=== PATIENT | female | born 1955 | race Caucasian/White ===

== ENCOUNTER 2024-05-07 17:20 | Emergency (ER) | payer MEDICARE, SELFPAY ==
[2024-05-07] VITALS (8 sets, daily range): BP systolic 128–140; BP diastolic 57–68; PULSE 65–80; RESP 12–24; TEMP 36.6; O2SAT 95–100; BMI 23.8
[2024-05-07] MEDS: PANTOPRAZOLE 40 MG VIAL 80 MG IV (17:41)
[2024-05-07] MEDS: METOCLOPRAMIDE 10 MG/2 ML INJ IV (17:42)
[2024-05-07 18:03] LABS: Add Manual Diff / Slide Review NO; Basophils Absolute Auto 0 /uL (0-100); Basophils Percent Auto 0.3 % (0-2); Eosinophils Absolute Auto 0 /uL (0-450); Hematocrit 28.4 % (36-46); Lymphocytes Absolute Auto 600 /uL (1100-4500); Lymphocytes Percent Auto 6.9 % (25-40); Mean Corpuscular HGB Conc 31.5 % (30-36); Mean Corpuscular Hemoglobin 20.2 PG (26-34); Monocytes Absolute Auto 500 /uL (0-900); Monocytes Percent Auto 5.1 % (3-14); Neutrophils Absolute Auto 7700 /uL (1500-7000); Neutrophils Percent Auto 87.7 % (50-75); Platelet Count 75 X10^3/uL (150-400); Red Blood Cell Count 4.43 X10^6/uL (4.0-5.2); Red Cell Distribution Width 20.1 % (11.6-14.8); White Blood Cell Count 8.8 X10^3/uL (4.5-11.0)
[2024-05-07 18:11] LABS: INR 1.4 (0.9-1.3)
[2024-05-07 18:14] LABS: PTT Partial Thromboplastin Tim 30 SECONDS (25.1-36.5)
--- NOTE | 2024-05-07 18:14 | ED.GIBLEED ---
HPI - GI Bleed General Chief complaint: GI Bleed Stated complaint: N/V/Coffeground emesis Time Seen by Provider: 05/07/24 18:14 Source: patient and EMS Mode of arrival: EMS History of Present Illness HPI Narrative: 69-year-old woman with a history of VILLATORO with known varices most recent upper GI bleed was January of 2024. She underwent endoscopy at [facility] with hospitalization in [place] found to have varices no active bleeding was not transfused at that time. 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 She is on oxycodone 10 mg every 4 hours for pain control secondary to the oncology diagnosis. With her 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 she does have chronically low platelets as well. She states that today she began having increasing nausea midepigastric pain had an episode of vomiting that had red blood and clots and then a couple more episodes that was coffee-ground type emesis. She has not had any black stools or melena. She continues to complain of severe nausea that did not respond initially to Zofran or Reglan and finally did respond to Compazine. Continues to have pain and for the last 12 hours has not been able to keep any of her pain medications down so I suspect there is a mild component of narcotic withdrawal that is contributing to the persistent nausea as well. She has not complaining of overt chest pain and has not had any recent fevers. 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 Upper gastrointestinal hemorrhage Esophageal varices Social History Smoking Status: Never smoker Smoking Status: Never smoker alcohol intake frequency: 0-2 drinks per day Substance Use Type: does not use Exam Initial Vital Signs Initial Vital Signs: Vital Signs Temperature 97.9 F 05/07/24 17:46 Pulse Rate 68 05/07/24 17:46 Respiratory Rate 22 05/07/24 17:46 Blood Pressure 136/68 05/07/24 17:46 Pulse Oximetry 100 05/07/24 17:46 Oxygen Delivery Method Room Air 05/07/24 17:46 General: Chronically ill-appearing woman with acute exacerbation, pale, retching, appears to be in pain HEENT: Moist mucous membranes, normal sclera with reactive pupils, Respiratory: Lungs are clear to auscultation, no wheezing no rales no rhonchi. Full and symmetrical air movement. She does have a port in her left upper chest Cardiac: Regular rate and rhythm no murmurs no bruits Abdomen: Soft, nontender, good bowel tones, no flank pain Skin: Quite pale, she has not diaphoretic Neurologic: Globally weak but otherwise Grossly neurologically intact with no obvious asymmetries or abnormalities Extremities: No trauma, well perfused Psych: Cooperative, appropriate insight and affect Course Orders Ordered: Discontinued Medications Hydromorphone HCl (Hydromorphone 1 Mg Inj) 1 mg IV NOW ONE Stop: 05/07/24 18:47 Last Admin: 05/07/24 19:04 Dose: 1 mg Documented By: LESA Hydromorphone HCl (Hydromorphone 0.5 Mg Inj) 1 mg IV Q15MIN PRN PRN Reason: Pain, Last Admin: 05/08/24 01:51 Dose: 1 mg Documented By: KAYLEY Octreotide Acetate 500 mcg/ (Sodium Chloride) 101 mls @ 10.1 mls/hr IV CONT AMIRAH; Protocol Last Admin: 05/08/24 03:58 Dose: 50 mcg/hr, 10.1 mls/hr Documented By: Infusion: 05/08/24 03:53 Dose: Infused Documented By: Admin: 05/07/24 19:16 Dose: 50 mcg/hr, 10.1 mls/hr Documented By: LESA Ceftriaxone Sodium 2,000 mg/ (Sodium Chloride) 100 mls @ 200 mls/hr IV NOW ONE Stop: 05/07/24 18:49 Last Infusion: 05/07/24 20:06 Dose: Infused Documented By: Admin: 05/07/24 19:10 Dose: 200 mls/hr Documented By: LESA Sodium Chloride (Normal Saline 0.9%) 1,000 mls @ 150 mls/hr IV CONT AMIRAH Last Admin: 05/08/24 01:50 Dose: 150 mls/hr Documented By: Infusion: 05/08/24 01:50 Dose: Infused Documented By: Admin: 05/07/24 19:16 Dose: 150 mls/hr Documented By: LESA Metoclopramide HCl (Metoclopramide 10 Mg/2 Ml Inj) 10 mg IV NOW ONE Stop: 05/07/24 17:38 Last Admin: 05/07/24 17:42 Dose: 10 mg Documented By: EDITH Metoclopramide HCl (Metoclopramide 10 Mg/2 Ml Inj) 10 mg IV NOW ONE Stop: 05/08/24 01:37 Last Admin: 05/08/24 01:50 Dose: 10 mg Documented By: KAYLEY Octreotide Acetate (Octreotide 100 Mcg/Ml Vial) 50 mcg IV NOW ONE Stop: 05/07/24 18:47 Last Admin: 05/07/24 19:07 Dose: 50 mcg Documented By: LESA Pantoprazole Sodium (Pantoprazole 40 Mg Vial) 80 mg IV NOW ONE Stop: 05/07/24 17:38 Last Admin: 05/07/24 17:41 Dose: 80 mg Documented By: EDITH Prochlorperazine (Prochlorperazine 10 Mg/2 Ml Vial) 10 mg IV NOW ONE Stop: 05/07/24 18:54 Last Admin: 05/07/24 19:12 Dose: 10 mg Documented By: LESA Vital Signs Vital signs: Vital Signs - 8 hr 05/08/24 00:00 05/08/24 00:00 05/08/24 00:30 Temperature Pulse Rate 75 73 Respiratory Rate 22 19 Blood Pressure 138/66 Pulse Oximetry 98 98 05/08/24 00:30 05/08/24 01:00 05/08/24 01:01 Temperature Pulse Rate 78 77 Respiratory Rate 21 27 H Blood Pressure 144/66 H Pulse Oximetry 98 98 05/08/24 01:01 05/08/24 01:31 05/08/24 02:00 Temperature Pulse Rate 68 73 Respiratory Rate 11 L Blood Pressure 132/61 Pulse Oximetry 95 98 05/08/24 02:30 05/08/24 02:51 05/08/24 02:51 Temperature 97.9 F Pulse Rate 66 67 Respiratory Rate 17 16 Blood Pressure 125/60 125/60 125/60 Pulse Oximetry 93 95 05/08/24 03:00 Temperature Pulse Rate 67 Respiratory Rate 19 Blood Pressure Pulse Oximetry 93 MDM - GI Bleed Lab Data 05/07/24 18:00 05/07/24 17:49 Labs: Lab Results 05/07/24 05/07/24 Range/Units 17:49 18:00 WBC 8.8 (4.5-11.0) X10^3/uL RBC 4.43 (4.0-5.2) X10^6/uL Hgb 9.0 L 8.7 L (12.0-16.0) g/dL Hct 28.4 L 28.1 L (36-46) % MCV 64.0 L (80-100) fL MCH 20.2 L (26-34) PG MCHC 31.5 (30-36) % RDW 20.1 H (11.6-14.8) % Plt Count 75 L (150-400) X10^3/uL Neut % (Auto) 87.7 H (50-75) % Lymph % (Auto) 6.9 L (25-40) % [place] % (Auto) 5.1 (3-14) % Eos % (Auto) 0.0 L (2-4) % Baso % (Auto) 0.3 (0-2) % Neut # (Auto) 7700 H (6601-1900) /uL Lymph # (Auto) 600 L (7736-5762) /uL [place] # (Auto) 500 (0-900) /uL Eos # (Auto) 0 (0-450) /uL Baso # (Auto) 0 (0-100) /uL RBC Morphology See below Hypochromasia 1+ H Anisocytosis 2+ H Microcytosis 1+ H Ovalocytes 1+ H Schistocytes 1+ H PT 16.0 H (9.4-12.5) SECONDS INR 1.4 H (0.9-1.3) APTT 30 (25.1-36.5) SECONDS Sodium 140 (137-145) mmol/L Potassium 3.9 (3.4-5.1) mmol/L Chloride 117 H (98-107) mmol/L Carbon Dioxide 18 L (22-32) mmol/L BUN 18 H (7-17) mg/dL Creatinine 0.70 (0.52-1.04) mg/dL Estimated GFR > 60 (>60) mL/min BUN/Creatinine Ratio 25.7 H (6-22) Glucose 139 H (80-110) mg/dL Calcium 8.1 L (8.4-10.2) mg/dL Total Bilirubin 1.4 H (0.2-1.3) mg/dL AST 24 (14-36) IU/L ALT 11 (<35) IU/L Alkaline Phosphatase 76 (38-126) U/L Total Protein 7.2 (6.3-8.2) g/dL Albumin 4.1 (3.5-5.0) g/dL Globulin 3.1 (1.7-4.1) g/dL Albumin/Globulin Ratio 1.3 (1.0-2.8) Blood Type A Negative Antibody Screen Negative ECG Data Interpretation: Sinus rhythm at a rate of 76, nonspecific STT wave changes. MDM Narrative Medical decision making narrative: CC: Upper GI bleeding Complicating co-morbidities: VILLATORO with known esophageal varices and low platelets, recent upper GI bleed January of 2024 with hospital admission and endoscopy done at [facility] in [place] Data collected from: patient Medical records reviewed: No medical records are immediately available. Patient does have access to her patient portal for lab comparison Differential considered: Small upper GI bleed, massive variceal upper GI bleed, severe anemia Exam documented above, pertinent findings include: Obviously hurting, nauseated, no additional vomiting since she has been in the emergency department, quite pale and appears generally unwell but not acutely toxic Lab Test results independently reviewed as above. Pertinent findings: From the patient's portal, on February 17 H&H is 10.2 and 34.2. Creatinine is 1.05 and platelets were at 75 CBC today shows initial hemoglobin of 9 and hematocrit of 28.4. This dropped to 8.7 and 28.1 after a L of fluid. Platelets are 75 white count is unremarkable Chemistries show creatinine appropriate at 0.7. CO2 is slightly low at 18 BUN minimally elevated at 18. Total bilirubin is 1.4. INR is 1.4, PTT is 30 Independently reviewed EKG: Sinus rhythm at a rate of 76. Nonspecific STT wave changes Consultations: Because we do not admit variceal bleeding to [facility], phone calls were made for bed availability. No beds available at [facility] in [facility]. [facility] bed available and I was able to speak with Dr. Rendon, admitting hospitalist. Patient will be accepted Treatments: 1 L of fluid, she was given 80 mg of IV Protonix, continues on an octreotide drip, given 2 g of ceftriaxone. Zofran, Reglan, Compazine and Dilaudid for pain control Re-evaluations: 140am after discussion with Dr. Rendon, findings reviewed with patient. She is having increasing nausea and pain we will re-treat with both Reglan and Dilaudid. She has remained hemodynamically stable throughout her ER stay Discussion: 69-year-old woman with variceal bleeding secondary to VILLATORO and an inoperable squamous cell tumor in the right side of her jaw that causes significant pain. Does not appear to be actively bleeding at this time however given the slight drop in H&H again from her discharge in January known varices low platelets hospitalization for observation is warranted at a minimum. We will be transferred to [facility]. 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
[2024-05-07 18:15] LABS: Alanine Aminotransferase 11 IU/L (<35); Albumin 4.1 g/dL (3.5-5.0); Albumin Globulin Ratio 1.3 (1.0-2.8); Alkaline Phosphatase 76 U/L (38-126); Aspartate Aminotransferase 24 IU/L (14-36); BUN Creatinine Ratio 25.7 (6-22); Bilirubin Total 1.4 mg/dL (0.2-1.3); Blood Urea Nitrogen 18 mg/dL (7-17); Calcium 8.1 mg/dL (8.4-10.2); Carbon Dioxide 18 mmol/L (22-32); Chloride 117 mmol/L (98-107); Estimated Glomerular Filt Rate > 60 mL/min (>60); Globulin 3.1 g/dL (1.7-4.1); Glucose 139 mg/dL (80-110); HEMOLYSIS < 15 (0-50); Potassium 3.9 mmol/L (3.4-5.1); Sodium 140 mmol/L (137-145); Total Protein 7.2 g/dL (6.3-8.2)
[2024-05-07 18:54] LABS: Anisocytosis 2+; Microcytosis 1+; Ovalocytes 1+; Schistocytes 1+
[2024-05-07 18:55] LABS: Hypochromasia 1+
[2024-05-07 18:56] LABS: Hematocrit 28.1 % (36-46); Hemoglobin 8.7 g/dL (12.0-16.0)
[2024-05-07] MEDS: HYDROMORPHONE 1 MG INJ IV (19:04)
[2024-05-07] MEDS: OCTREOTIDE 100 MCG/ML VIAL 50 MCG IV (19:07)
[2024-05-07] MEDS: cefTRIAXone 2,000 MG in SODIUM CHLORIDE 0.9% 100 ML 200 MG IV (19:10)
[2024-05-07] MEDS: PROCHLORPERAZINE 10 MG/2 ML VIAL IV (19:12)
[2024-05-07] MEDS: SODIUM CHLORIDE 0.9% 1,000 ML 150 ML IV (19:16)
[2024-05-07] MEDS: OCTREOTIDE 500 MCG in SODIUM CHLORIDE 0.9% 100 ML 10.1 MCG IV (19:16)
[2024-05-08] VITALS (9 sets, daily range): BP systolic 125–144; BP diastolic 60–66; PULSE 66–78; RESP 11–27; TEMP 36.6; O2SAT 93–98
[2024-05-08] MEDS: METOCLOPRAMIDE 10 MG/2 ML INJ IV (01:50)
[2024-05-08] MEDS: SODIUM CHLORIDE 0.9% 1,000 ML 150 ML IV (01:50)
[2024-05-08] MEDS: HYDROMORPHONE 0.5 MG INJ 1 MG IV (01:51)
[2024-05-08] MEDS: OCTREOTIDE 500 MCG in SODIUM CHLORIDE 0.9% 100 ML 10.1 MCG IV (03:58)
== END 2024-05-08 04:13 | disposition short-term general hospital (02) ==
PROVIDERS: Emergency Medicine; Emergency Provider Emergency Medicine
DX: I85.01 Esophageal varices with bleeding (principal); K75.81 Nonalcoholic steatohepatitis (NASH)
CPT/HCPCS: 36415; 80053; 85014; 85018; 85025; 85610; 85730; 86850; 86900; 86901; 93005; 96365; 96366; 96368; 99284; 99285; C9113; J0696; J0780; J1170; J2354; J2765

== ENCOUNTER 2024-06-29 08:21 | Emergency (ER) | payer MEDICARE, SELFPAY ==
[2024-06-29] VITALS (17 sets, daily range): BP systolic 127–169; BP diastolic 64–82; PULSE 52–64; RESP 11–31; TEMP 36.4; O2SAT 92–99
--- NOTE | 2024-06-29 08:22 | ED_ITS ---
HPI - General Adult General Chief complaint: Abdominal Pain Stated complaint: Abd pain/n/v Time Seen by Provider: 06/29/24 08:22 History of Present Illness HPI narrative: Patient with a history ERAZO, esophageal varices, invasive squamous nonoperative cancer including the right side of her jaw with chronic pain and chronic narcotic management presents complaining of acute abdominal pain with nausea and vomiting awakened her from sleep at 2:00 a.m. this morning. She was admitted with GI bleeds in both January and May of this year in May she was seen in the emergency department and transferred to [facility] because of the potential for significant variceal bleeding. She thinks that there may have been some coffee grounds in the emesis that came up this morning but no red blood or clots. She has not been having abdominal pain before this acute onset, no fevers, cough, chills. She denies constipation or diarrhea. She has not been having black stools. 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 She is brought in by medics, slightly hypotensive but responded to 250 cc of fluid in route. Continuing to complain of significant upper abdominal pain but able to give a complete and coherent history. Related Data Previous Rx's Medication Instructions Recorded prochlorperazine 25 mg rectal 25 mg MT Q12H PRN nausea and 06/29/24 suppository vomiting #12 ea prochlorperazine maleate 10 mg 10 mg PO Q8H PRN nausea and 06/29/24 tablet vomiting #14 tabs Allergies Allergy/AdvReac Type Severity Reaction Status Date / Time No Known Allergies Allergy Verified 05/07/24 18:56 Review of Systems Review of Systems Narrative: Pertinent positive and negative findings as per HPI Patient History Medical History 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 Upper gastrointestinal hemorrhage Esophageal varices Social History Smoking Status: Never smoker Exam Initial Vital Signs Initial Vital Signs: Vital Signs Temperature 97.6 F 06/29/24 08:27 Pulse Rate 52 L 06/29/24 08:27 Respiratory Rate 18 06/29/24 08:27 Blood Pressure 148/82 H 06/29/24 08:27 Pulse Oximetry 98 06/29/24 08:27 Oxygen Delivery Method Room Air 06/29/24 08:27 General: Chronically ill-appearing, pale, in discomfort but able to cooperate with exam HEENT: Moist mucous membranes, normal sclera with reactive pupils, Neck: No JVD, supple Respiratory: Lungs are clear to auscultation, no wheezing no rales no rhonchi. Full and symmetrical air movement Cardiac: Regular rate and rhythm no murmurs no bruits Abdomen: Soft, tender across the entire epigastrium with mild guarding in the epigastrium to left upper quadrant but no rebound. Lower abdominal exam is benign Skin: Pale but otherwise Warm and dry, no rashes Neurologic: Grossly neurologically intact with no obvious asymmetries or abnormalities Extremities: No trauma, no lower extremity edema Psych: Cooperative, appropriate insight and affect Course Orders Ordered: ED Orders 06/29/24 08:40 CT abdomen pelvis w con Stat Urinalysis and Microscopic Stat 06/29/24 08:41 EKG-12 Lead Routine 06/29/24 08:45 Complete Blood Count AUTO DIFF Stat Comprehensive Metabolic Panel Stat Lactate (Lactic Acid) Stat Lipase Stat Magnesium Stat PT [Prothrombin Time INR] Stat PTT Partial Thromboplastin Jones Stat Troponin I Stat 06/29/24 12:07 Trop I [Troponin I] Stat Hydromorphone HCl (Hydromorphone 0.5 Mg Inj) 1 mg IV Q15MIN PRN PRN Reason: Pain, Last Admin: 06/29/24 11:19 Dose: 1 mg Documented By: Admin: 06/29/24 08:53 Dose: 1 mg Documented By: CANDIDA Sodium Chloride (Normal Saline 0.9%) 1,000 mls @ 150 mls/hr IV CONT AMIRAH Last Admin: 06/29/24 08:53 Dose: 150 mls/hr Documented By: CANDIDA Discontinued Medications Diphenhydramine HCl (Diphenhydramine 50 Mg/Ml Vial) 25 mg IV NOW ONE Stop: 06/29/24 10:51 Last Admin: 06/29/24 11:15 Dose: 25 mg Documented By: BLAISE Metoclopramide HCl (Metoclopramide 10 Mg/2 Ml Inj) 10 mg IV NOW ONE Stop: 06/29/24 08:55 Last Admin: 06/29/24 08:56 Dose: 10 mg Documented By: CANDIDA Oxycodone HCl (Oxycodone Ir 5 Mg Tablet) 10 mg PO NOW ONE Stop: 06/29/24 10:51 Last Admin: 06/29/24 11:43 Dose: 10 mg Documented By: BLAISE Prochlorperazine (Prochlorperazine 10 Mg/2 Ml Vial) 10 mg IV NOW ONE Stop: 06/29/24 10:51 Last Admin: 06/29/24 11:14 Dose: 10 mg Documented By: BLAISE Vital Signs Vital signs: Vital Signs - 8 hr 06/29/24 08:27 06/29/24 08:29 06/29/24 08:29 Temperature 97.6 F Pulse Rate 52 L 56 L Respiratory Rate 18 31 H Blood Pressure 148/82 H 148/82 H Pulse Oximetry 98 99 Oxygen Delivery Method Room Air 06/29/24 08:30 06/29/24 08:31 06/29/24 08:31 Temperature Pulse Rate 57 L 55 L Respiratory Rate Blood Pressure 151/69 H Pulse Oximetry Oxygen Delivery Method 06/29/24 09:00 06/29/24 09:01 06/29/24 09:01 Temperature Pulse Rate 60 60 Respiratory Rate 23 Blood Pressure 129/66 Pulse Oximetry 97 98 Oxygen Delivery Method Room Air 06/29/24 09:28 06/29/24 09:28 06/29/24 09:30 Temperature Pulse Rate 64 64 Respiratory Rate Blood Pressure 169/77 H Pulse Oximetry 97 97 Oxygen Delivery Method 06/29/24 09:30 06/29/24 10:00 06/29/24 10:00 Temperature Pulse Rate 63 Respiratory Rate 23 Blood Pressure 146/70 H 158/76 H Pulse Oximetry 97 Oxygen Delivery Method Medical Decision Making Lab Data 06/29/24 08:45 06/29/24 08:45 Labs: Lab Results 06/29/24 06/29/24 Range/Units 08:45 12:07 WBC 9.3 (4.5-11.0) X10^3/uL RBC 5.27 H (4.0-5.2) X10^6/uL Hgb 13.7 (12.0-16.0) g/dL Hct 41.0 (36-46) % MCV 77.8 L (80-100) fL MCH 26.0 (26-34) PG MCHC 33.5 (30-36) % RDW 28.0 H (11.6-14.8) % Plt Count 101 L (150-400) X10^3/uL Neut % (Auto) 88.4 H (50-75) % Lymph % (Auto) 7.0 L (25-40) % [place] % (Auto) 4.3 (3-14) % Eos % (Auto) 0.2 L (2-4) % Baso % (Auto) 0.1 (0-2) % Neut # (Auto) 8300 H (8799-0667) /uL Lymph # (Auto) 700 L (1365-7600) /uL [place] # (Auto) 400 (0-900) /uL Eos # (Auto) 0 (0-450) /uL Baso # (Auto) 0 (0-100) /uL RBC Morphology See below Anisocytosis 2+ H Microcytosis 1+ H Ovalocytes 1+ H PT 14.9 H (9.4-12.5) SECONDS INR 1.3 (0.9-1.3) APTT 42 H (25.1-36.5) SECONDS Sodium 136 L (137-145) mmol/L Potassium 4.0 (3.4-5.1) mmol/L Chloride 108 H (98-107) mmol/L Carbon Dioxide 17 L (22-32) mmol/L BUN 20 H (7-17) mg/dL Creatinine 0.64 (0.52-1.04) mg/dL Estimated GFR > 60 (>60) mL/min BUN/Creatinine Ratio 31.3 H (6-22) Glucose 149 H (80-110) mg/dL Lactate 1.6 (0.7-2.1) mmol/L Calcium 8.7 (8.4-10.2) mg/dL Magnesium 1.9 (1.6-2.3) mg/dL Total Bilirubin 1.4 H (0.2-1.3) mg/dL AST 27 (14-36) IU/L ALT 14 (<35) IU/L Alkaline Phosphatase 124 (38-126) U/L Troponin I < 0.012 < 0.012 (0.01-0.034) ng/mL Total Protein 7.8 (6.3-8.2) g/dL Albumin 4.3 (3.5-5.0) g/dL Globulin 3.5 (1.7-4.1) g/dL Albumin/Globulin Ratio 1.2 (1.0-2.8) Lipase 96 (23-300) U/L Imaging Data CT scan - abdomen/pelvis: Radiologist's Impression: PROCEDURE: CT ABDOMEN PELVIS W CON INDICATIONS: acute upper abdominal pain TECHNIQUE: After the administration of intravenous contrast, axial sections acquired from the lung bases to the pubic symphysis. Coronal and sagittal reformats were performed. For radiation dose reduction, the following was used: automated exposure control, adjustment of mA and/or kV according to patient size. COMPARISON: None. FINDINGS: Image quality: Diagnostic. Lower Chest: No significant findings. ABDOMEN: Liver: No solid mass. Nodular liver contour is seen. Possible right hepatic cyst measures 2 x 1.9 cm in size is noted series 2, image 18. Gallbladder: No radiopaque gallstones or wall thickening. Biliary ducts: No biliary dilation. Pancreas: No ductal dilation. Spleen: There is splenomegaly, no discrete splenic lesion. Adrenal Glands: No adrenal nodules. Kidneys and Ureters: No hydronephrosis. No solid mass. No complex renal cystic lesion which requires follow up. Stomach and Bowel: There is no bowel obstruction. There is suggestion of mid to distal gastric wall thickening. Diffuse wall thickening involving ascending colon with mild pericolonic fat stranding is seen. Questionable descending colon wall thickening is also noted extending to involve sigmoid colon . No gross small bowel wall thickening. No abscess collection. Peritoneum: No abnormal intraperitoneal fluid. No free air. Ventral Wall: No significant ventral hernia. Abdominal Nodes: No retroperitoneal or mesenteric adenopathy by size criteria. Vessels: Aorta and inferior vena cava are normal in size. Collateral vessels are noted with suggestion of portal hypertension. PELVIS: Pelvic Organs: Unremarkable. Bladder: No bladder wall thickening, accounting for underdistention. Pelvic Nodes: No enlarged lymph nodes. Miscellaneous: No inguinal hernias are seen. Bones: No aggressive osseous abnormality. IMPRESSION: 1. Finding is concerning for gastritis and colitis. No bowel obstruction. No abscess collection. No free fluid or free air. 2. Serosa is with suggestion of portal hypertension. Splenomegaly. No discrete hepatic or splenic lesion. 3. No renal stones or hydronephrosis. Dictated by: Martinez Tucker M.D. on 06/29/2024 at 10:00 [facility] Narrative Medical decision making narrative: CC: Abdominal pain with vomiting Complicating co-morbidities: ERAZO, esophageal varices, large GI bleeds in January and May of this year Data collected from: patient Medical records reviewed: ER note from May with summary of previous workup at [facility] reviewed. Patient's primary care is through [place] and Dr. Del Angel Discharge summary from [facility] May 12 is reviewed: Portal hypertension gastropathy, acute upper GI bleed, thrombocytopenia, Erazo, portal vein thrombosis resolved, iron-deficiency anemia Differential considered: Recurrent upper GI bleeding, gastric pain, pancreatitis, acute surgical abdomen, Exam documented above, pertinent findings include: Patient has significant upper abdominal tenderness with some guarding, no rebound. No obvious active ongoing bleeding at this time Lab Test results independently reviewed as above. Pertinent findings: CBC shows a white count of 9.3. H and H is 13.7 and 41.0. At time of transfer with her most recent GI bleed a month ago she had been down to 8.7 and 28 PTT is minimally elevated, INR is appropriate Chemistries are relatively reassuring. Appropriate renal function with creatinine at 0.64. Total bilirubin is 1.4, similar to a month ago Troponin is nondetectable, repeat troponin is equally undetectable Lipase is within normal limits Independently reviewed EKG: EKG shows anterolateral ST depression and flipped T-waves. Otherwise sinus rhythm at a rate of 55 Imaging studies independently reviewed: suggestion of mid to distal gastric wall thickening. Diffuse wall thickening involving ascending colon with mild pericolonic fat stranding is seen. Questionable descending colon wall thickening is also noted extending to involve sigmoid colon . No gross small bowel wall thickening. No abscess collection. concerning for gastritis and colitis. No bowel obstruction. No abscess collection. No free fluid or free air. Treatments: Fluids, Dilaudid, Zofran given in route which was ineffective. Reglan was tried and still quite nauseated. Will try Compazine. Re-evaluations: [address] scan findings with the patient. Repeat troponin is ordered. We did discuss possibility of hospitalization. She would like to try Compazine and Benadryl and see if she can keep down some oral oxycodone before we commit to hospitalization for intractable nausea and vomiting in the setting of gastroenteritis/colitis. Discussion: 69-year-old woman with a history of ERAZO, recent upper GI bleed now with nausea and vomiting and upper abdominal pain. CT scan suggests gastritis/colitis. She has not currently having diarrhea. No evidence of secondary bacterial infection, exam is not consistent with spontaneous bacterial peritonitis nor is there suggestion of significant ascites. H and H is significantly increased. 1pm patient is re-evaluated. Pain and nausea have both been better controlled. She is able to keep some liquids down. With shared decision-making we opted for discharge home. Since Compazine seems to work best for her of given her outpatient prescription for both oral and rectal forms. There was no evidence of acute bleeding, infection, heart attack or alternate explanation that would require hospitalization, additional imaging or further blood work. Questions are answered and she will be discharged Discharge Plan Departure Patient Disposition: Home Clinical Impression: Liver cirrhosis secondary to ERAZO Nausea & vomiting Qualifiers: Vomiting type: unspecified Qualified Code(s): R11.2 - Nausea with vomiting, unspecified Instructions: DI for Nausea -- Adult Activity Restrictions/Additional Instructions: Thank you for coming in today Fortunately, I am not finding anything life-threatening. You do not appear to have another GI bleed. There was no evidence of heart attack, infection, bowel obstruction or alternate explanation that would require hospitalization today I do not know why you are quite so nauseated but you did seem to respond best to Compazine/prochlorperazine. I have given you a prescription of this to use at home. It comes in a pill and as a rectal suppository if you are throwing up so much the pill can not stay down. It is the same medication just a different form so choose 1 form or the other. Please make sure you restart your proton pump inhibitor and continue all of your other prescribed medications If you find that you are getting worse or develop any new symptoms, please feel free to return to the emergency department for further evaluation. Prescriptions: New prochlorperazine maleate 10 mg tablet 10 mg PO Q8H PRN (Reason: nausea and vomiting) Qty: 14 0RF prochlorperazine 25 mg suppository 25 mg MT Q12H PRN (Reason: nausea and vomiting) Qty: 12 0RF Referrals: Miscellaneous,Doctor, MD [Primary Care Provider] - Stand Alone Forms: Patient Portal/API
--- NOTE | 2024-06-29 08:40 | DI.CT.S_ITS ---
PROCEDURE: CT ABDOMEN PELVIS W CON INDICATIONS: acute upper abdominal pain TECHNIQUE: After the administration of intravenous contrast, axial sections acquired from the lung bases to the pubic symphysis. Coronal and sagittal reformats were performed. For radiation dose reduction, the following was used: automated exposure control, adjustment of mA and/or kV according to patient size. COMPARISON: None. FINDINGS: Image quality: Diagnostic. Lower Chest: No significant findings. ABDOMEN: Liver: No solid mass. Nodular liver contour is seen. Possible right hepatic cyst measures 2 x 1.9 cm in size is noted series 2, image 18. Gallbladder: No radiopaque gallstones or wall thickening. Biliary ducts: No biliary dilation. Pancreas: No ductal dilation. Spleen: There is splenomegaly, no discrete splenic lesion. Adrenal Glands: No adrenal nodules. Kidneys and Ureters: No hydronephrosis. No solid mass. No complex renal cystic lesion which requires follow up. Stomach and Bowel: There is no bowel obstruction. There is suggestion of mid to distal gastric wall thickening. Diffuse wall thickening involving ascending colon with mild pericolonic fat stranding is seen. Questionable descending colon wall thickening is also noted extending to involve sigmoid colon . No gross small bowel wall thickening. No abscess collection. Peritoneum: No abnormal intraperitoneal fluid. No free air. Ventral Wall: No significant ventral hernia. Abdominal Nodes: No retroperitoneal or mesenteric adenopathy by size criteria. Vessels: Aorta and inferior vena cava are normal in size. Collateral vessels are noted with suggestion of portal hypertension. PELVIS: Pelvic Organs: Unremarkable. Bladder: No bladder wall thickening, accounting for underdistention. Pelvic Nodes: No enlarged lymph nodes. Miscellaneous: No inguinal hernias are seen. Bones: No aggressive osseous abnormality. IMPRESSION: 1. Finding is concerning for gastritis and colitis. No bowel obstruction. No abscess collection. No free fluid or free air. 2. Serosa is with suggestion of portal hypertension. Splenomegaly. No discrete hepatic or splenic lesion. 3. No renal stones or hydronephrosis. Dictated by: Martinez Tucker M.D. on 06/29/2024 at 10:00 Approved by: Martinez Tucker M.D. on 06/29/2024 at 10:11
--- NOTE | 2024-06-29 08:41 | EKG_ITS ---
[id number] [address] Test Date: 2024-06-29 Pat Name: Lo Aburto Department: Room: Gender: Female Legal Support Manager: HALEY : 1955 Requested By: Order Number: [id number] Reading MD: Herve Graves Measurements Intervals [place] Rate: 55 P: 45 GA: 148 QRS: 73 QRSD: 76 T: 62 QT: 502 QTc: 480 Interpretive Statements Sinus bradycardia ST & T wave abnormality, consider anterior ischemia Prolonged QT Noted in ED providoer notes. Electronically Signed On 07-01-2024 8:53:41 PDT by Herve Graves
[2024-06-29] MEDS: SODIUM CHLORIDE 0.9% 1,000 ML 150 ML IV (08:53)
[2024-06-29] MEDS: HYDROMORPHONE 0.5 MG INJ 1 MG IV ×2 (08:53→11:19)
[2024-06-29] MEDS: METOCLOPRAMIDE 10 MG/2 ML INJ IV (08:56)
[2024-06-29 08:58] LABS: Add Manual Diff / Slide Review NO; Basophils Absolute Auto 0 /uL (0-100); Basophils Percent Auto 0.1 % (0-2); Eosinophils Absolute Auto 0 /uL (0-450); Eosinophils Percent Auto 0.2 % (2-4); Hemoglobin 13.7 g/dL (12.0-16.0); Lymphocytes Absolute Auto 700 /uL (1100-4500); Mean Corpuscular HGB Conc 33.5 % (30-36); Mean Corpuscular Volume 77.8 fL (80-100); Monocytes Absolute Auto 400 /uL (0-900); Monocytes Percent Auto 4.3 % (3-14); Neutrophils Absolute Auto 8300 /uL (1500-7000); Neutrophils Percent Auto 88.4 % (50-75); Platelet Count 101 X10^3/uL (150-400); Red Blood Cell Count 5.27 X10^6/uL (4.0-5.2); White Blood Cell Count 9.3 X10^3/uL (4.5-11.0)
[2024-06-29 09:03] LABS: INR 1.3 (0.9-1.3); Prothrombin Time 14.9 SECONDS (9.4-12.5)
[2024-06-29 09:06] LABS: PTT Partial Thromboplastin Tim 42 SECONDS (25.1-36.5)
[2024-06-29 09:07] LABS: Lactate (Lactic Acid) 1.6 mmol/L (0.7-2.1)
[2024-06-29 09:08] LABS: Alanine Aminotransferase 14 IU/L (<35); Albumin 4.3 g/dL (3.5-5.0); Albumin Globulin Ratio 1.2 (1.0-2.8); Alkaline Phosphatase 124 U/L (38-126); Aspartate Aminotransferase 27 IU/L (14-36); BUN Creatinine Ratio 31.3 (6-22); Bilirubin Total 1.4 mg/dL (0.2-1.3); Blood Urea Nitrogen 20 mg/dL (7-17); Calcium 8.7 mg/dL (8.4-10.2); Carbon Dioxide 17 mmol/L (22-32); Chloride 108 mmol/L (98-107); Estimated Glomerular Filt Rate > 60 mL/min (>60); Globulin 3.5 g/dL (1.7-4.1); Glucose 149 mg/dL (80-110); HEMOLYSIS < 15 (0-50); Lipase 96 U/L (23-300); Magnesium 1.9 mg/dL (1.6-2.3); Sodium 136 mmol/L (137-145); Total Protein 7.8 g/dL (6.3-8.2)
[2024-06-29 09:10] LABS: Anisocytosis 2+; Ovalocytes 1+
[2024-06-29 09:12] LABS: Microcytosis 1+
[2024-06-29 09:20] LABS: Troponin I < 0.012 ng/mL (0.01-0.034)
[2024-06-29] MEDS: PROCHLORPERAZINE 10 MG/2 ML VIAL IV (11:14)
[2024-06-29] MEDS: diphenhydrAMINE 50 MG/ML VIAL 25 MG IV (11:15)
[2024-06-29] MEDS: OXYCODONE IR 5 MG TABLET 10 MG PO (11:43)
[2024-06-29 12:36] LABS: Troponin I < 0.012 ng/mL (0.01-0.034)
[2024-06-29] MEDS: PANTOPRAZOLE 40 MG VIAL IV (13:14)
== END 2024-06-29 13:29 | disposition home or self-care (01) ==
PROVIDERS: Emergency Provider Emergency Medicine
DX: K75.81 Nonalcoholic steatohepatitis (NASH) (principal); R11.2 Nausea with vomiting, unspecified
CPT/HCPCS: 36415; 74177; 80053; 83605; 83690; 83735; 84484; 85025; 85610; 85730; 93005; 96361; 96374; 96375; 99284; J0780; J1170; J1200; J2470; J2765; Q9967

== ENCOUNTER 2024-08-21 11:50 | Emergency (ER) | payer MEDICARE, SELFPAY ==
[2024-08-21 11:59] VITALS: BP 131/61; PULSE 96; RESP 18; TEMP 36.4; O2SAT 94; BMI 22.7
--- NOTE | 2024-08-21 12:43 | DI.RAD.S_ITS ---
PROCEDURE: XR CHEST 2V INDICATIONS: Cough phlegm congestion TECHNIQUE: 2 views of the chest were acquired. COMPARISON: [facility], CT, CT ABDOMEN PELVIS W CON, 06/29/2024, 9:17. FINDINGS: Surgical changes and devices: Port-A-Cath from right-sided approach extends into the far distal SVC or superior right atrium. Lungs and pleura: Lungs are abnormal with patchy alveolar prominence and possible right mid lung mass laterally, measuring approximately 1.4 cm in diameter.. No pleural effusions or pneumothorax. Mediastinum: Mediastinal contours are normal. Heart size is normal. Bones and chest wall: No suspicious bony abnormalities. Soft tissues appear unremarkable. IMPRESSION: Somewhat worrisome findings in the absence of comparison chest plain film. A small portion of the lungs was included on prior CT abdomen/pelvis scanning 06/29/24 which did not show definite pulmonary abnormalities. Atypical/viral pneumonia should be considered. Port-A-Cath from right-sided approach appears somewhat low in positioning but unchanged from prior CT scanning. Possible 1.4 cm lung mass lateral right mid lung. Follow-up noncontrast chest CT scanning may be warranted. Dictated by: Bridger Nunes M.D. on 08/21/2024 at 13:29 Approved by: Bridger Nunes M.D. on 08/21/2024 at 13:32
--- NOTE | 2024-08-21 12:45 | ED.URI ---
HPI - URI/Sore Throat <Jessica Sparks PA-C - Last Filed: 08/21/24 16:14> General Chief Complaint: Upper Respiratory Symptoms Stated Complaint: Cough, Phlem Time Seen by Provider: 08/21/24 12:24 Source: patient Mode of arrival: Ambulatory History of Present Illness HPI Narrative: Patient is a very pleasant 69-year-old female presents to the emergency room department today with several days of cough, cold, congestion. Productive phlegm. Now having blood-tinged phlegm. Patient took a home COVID test on Saturday which was negative, her roommate recently had COVID. Patient denies fevers, she denies nausea, vomiting. She has had some minor shortness of breath. No chest pain. Eating, drinking, normal bowel habits. Been taking [id number] Mucinex with some minimal relief. Related Data Previous Rx's Medication Instructions Recorded prochlorperazine 25 mg rectal 25 mg RI Q12H PRN nausea and 06/29/24 suppository vomiting #12 ea prochlorperazine maleate 10 mg 10 mg PO Q8H PRN nausea and 06/29/24 tablet vomiting #14 tabs albuterol sulfate 90 mcg/actuation 1 inh inhalation QID PRN shortness 08/21/24 aerosol inhaler (Ventolin HFA) of breath or wheezing #6.7 grams azithromycin 250 mg tablet See Rx Instructions PO .COMPLEX #6 08/21/24 (Zithromax Z-Nelson) tabs Allergies Allergy/AdvReac Type Severity Reaction Status Date / Time No Known Allergies Allergy Verified 08/21/24 12:03 Review of Systems <Jessica Sparks PA-C - Last Filed: 08/21/24 16:14> Review of Systems Narrative: Negative except as above Respiratory Comments: Cough, congestion, productive phlegm, now blood-tinged with the amount of coughing that she has been doing. 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 Currently getting radiation. Currently supposed to get her 2nd dose of radiation is coming Saturday. 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 Upper gastrointestinal hemorrhage Esophageal varices Social History Smoking Status: Never smoker Smoking Status: Never smoker alcohol intake frequency: 0-2 drinks per day Substance Use Type: does not use Exam <Jessica Sparks PA-C - Last Filed: 08/21/24 16:14> Initial Vital Signs Initial Vital Signs: Vital Signs Temperature 97.6 F 08/21/24 11:59 Pulse Rate 96 H 08/21/24 11:59 Respiratory Rate 18 08/21/24 11:59 Blood Pressure 131/61 08/21/24 11:59 Pulse Oximetry 94 08/21/24 11:59 Oxygen Delivery Method Room Air 08/21/24 11:59 Reviewed Const General: cooperative, healthy appearing, comfortable, well developed, well groomed and ill appearing Orientation: Orientation HENAZ Ears: hearing grossly normal bilaterally, external ears normal, TM's normal bilaterally, TM normal on the right and TM normal on the left Eyes General: Yes appearance normal, both eyes and all related structures Pupils: PERRL EOM: EOM intact bilaterally Neck Lymphatic: No lymphadenopathy Resp Effort & Inspection: normal respiratory effort and able to speak in complete sentences Auscultation: crackles (Throughout) bilaterally Cardio Rate: regular rate Rhythm: regular rhythm Heart Sounds: S1 normal and S2 normal Neuro General: patient alert, patient awake, patient oriented x3 and oriented Cranial Nerves: CN's II-XI intact bilaterally and PERRL Cognition: normal cognition Speech: speech normal Gait: normal gait Motor: muscle tone normal throughout Extrem Other: Range of motion, strength, pulses, cap refill preserved in the upper and lower extremities Psych Appearance: grossly normal Mental Status: mental status grossly normal Speech and Movement: speech and movement normal Mood: congruent mood Affect: normal affect Attitude: cooperative Thought Process: normal Thought Content: normal Judgment: judgment good <Saul Mora DO - Last Filed: 08/21/24 16:50> Initial Vital Signs Initial Vital Signs: Vital Signs Temperature 97.6 F 08/21/24 11:59 Pulse Rate 96 H 08/21/24 11:59 Respiratory Rate 18 08/21/24 11:59 Blood Pressure 131/61 08/21/24 11:59 Pulse Oximetry 94 08/21/24 11:59 Oxygen Delivery Method Room Air 08/21/24 11:59 Course <Jessica Sparks PA-C - Last Filed: 08/21/24 16:14> Orders Ordered: ED Orders 08/21/24 12:43 Chest [XR chest 2V] Stat 08/21/24 12:58 Covid-19 + FLU A/B + RSV - PCR Stat Vital Signs Vital signs: Vital Signs - 8 hr 08/21/24 11:59 08/21/24 14:30 Temperature 97.6 F 97.4 F L Pulse Rate 96 H 97 H Respiratory Rate 18 16 Blood Pressure 131/61 105/68 Pulse Oximetry 94 93 Oxygen Delivery Method Room Air Room Air Reviewed <Saul Mora DO - Last Filed: 08/21/24 16:50> Orders Ordered: ED Orders 08/21/24 12:43 Chest [XR chest 2V] Stat 08/21/24 12:58 Covid-19 + FLU A/B + RSV - PCR Stat Vital Signs Vital signs: Vital Signs - 8 hr 08/21/24 11:59 08/21/24 14:30 Temperature 97.6 F 97.4 F L Pulse Rate 96 H 97 H Respiratory Rate 18 16 Blood Pressure 131/61 105/68 Pulse Oximetry 94 93 Oxygen Delivery Method Room Air Room Air MDM - URI/Sore Throat <Jessica Sparks PA-C - Last Filed: 08/21/24 16:14> Lab Data Labs: Lab Results 08/21/24 Range/Units 12:58 SARS-CoV-2 (PCR) Positive H (Negative) Influenza A (RT-PCR) Flu a negative (NEGATIVE) Influenza B (RT-PCR) Flu b negative (NEGATIVE) RSV (PCR) Negative (Negative) Imaging Data Chest x-ray: Radiologist's Impression: [address] [address] XRay Report Signed Patient: Lo Aburto MR#: [id number] : 1955 Acct:[id number] Age/Sex: 69 / F Date of Service: 08/21/24 Loc: ED Accession Number: [id number] Procedure: XR chest 2V Ordering Provider: Jessica Sparks PA-C PROCEDURE: XR CHEST 2V INDICATIONS: Cough phlegm congestion TECHNIQUE: 2 views of the chest were acquired. COMPARISON: [facility], CT, CT ABDOMEN PELVIS W CON, 06/29/2024, 9:17. FINDINGS: Surgical changes and devices: Port-A-Cath from right-sided approach extends into the far distal SVC or superior right atrium. Lungs and pleura: Lungs are abnormal with patchy alveolar prominence and possible right mid lung mass laterally, measuring approximately 1.4 cm in diameter.. No pleural effusions or pneumothorax. Mediastinum: Mediastinal contours are normal. Heart size is normal. Bones and chest wall: No suspicious bony abnormalities. Soft tissues appear unremarkable. IMPRESSION: Somewhat worrisome findings in the absence of comparison chest plain film. A small portion of the lungs was included on prior CT abdomen/pelvis scanning 06/29/24 which did not show definite pulmonary abnormalities. Atypical/viral pneumonia should be considered. Port-A-Cath from right-sided approach appears somewhat low in positioning but unchanged from prior CT scanning. Possible 1.4 cm lung mass lateral right mid lung. Follow-up noncontrast chest CT scanning may be warranted. Dictated by: Bridger Nunes M.D. on 08/21/2024 at 13:29 Approved by: Bridger Nunes M.D. on 08/21/2024 at 13:32 MDM Narrative Medical decision making narrative: Pleasant 69-year-old female cough, cold, congestion, productive phlegm now coughing so hard that she is having blood-tinged phlegm. Roommate recently had COVID, presents to the emergency department because she is having some mild shortness of breath. 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 He is supposed to have 2nd round radiation this coming weekend. Been doing [id number] supportive therapy with limited relief. Been using her inhaler with some relief. It has an albuterol inhaler now she is out of the inhaler. Chest x-ray shows that she has pneumonia Treated with antibiotics were sent to her pharmacy Unfortunately the for pat comes back with the patient is positive for COVID Explained that I would like her to call her primary care doctor as well as her oncologist discussed that she has COVID as well as pneumonia Patient given supportive therapy education, ED precautions. Prescription is sent to her pharmacy Differential diagnosis; COVID and pneumonia. <Saul Mora, DO - Last Filed: 08/21/24 16:50> Lab Data Labs: Lab Results 08/21/24 Range/Units 12:58 SARS-CoV-2 (PCR) Positive H (Negative) Influenza A (RT-PCR) Flu a negative (NEGATIVE) Influenza B (RT-PCR) Flu b negative (NEGATIVE) RSV (PCR) Negative (Negative) Discharge Plan Departure Patient Disposition: Home Clinical Impression: COVID-19 Pneumonia Qualifiers: Pneumonia type: due to unspecified organism Laterality: right Lung location: middle lobe of lung Qualified Code(s): J18.9 - Pneumonia, unspecified organism Activity Restrictions/Additional Instructions: Your chest x-ray shows concerning lung mass in the right side. You will need a repeat CT scan to evaluated in 1-3 months. Please let your primary care doctor no, please let your oncologist know so that they can schedule a repeat CT scan. I sent a prescription of antibiotics to your pharmacy. Please take the medications as prescribed. Please do [id number] supportive therapy. For nasal complaints Nasonex followed by ocean spray. For fevers or body aches ibuprofen or Tylenol. For wet cough Mucinex. For dry cough Delsym. Steam showers, humidified air, Vicks vapor rub. Plenty of rest. Balanced diet. Plenty of fluids. TheraFlu, DayQuil, NyQuil also will help with your symptoms. Please make an appointment to follow up with your primary care doctor for a recheck. Please advise your oncologist that you have pneumonia, I know that you are supposed to start your 2nd round of radiation associated with your cancer. Your test unfortunately came back positive for COVID-19 You do not have influenza and you do not have RSV Prescriptions: New azithromycin [Zithromax Z-Nelson] 250 mg tablet See Rx Instructions .ROUTE .COMPLEX Qty: 6 0RF Rx Instructions: For 250 mg dose pack: take 500 mg today (day 1), then 250 mg for 4 days (days 2-5) albuterol sulfate [Ventolin HFA] 90 mcg/actuation HFA aerosol inhaler 1 inh inhalation QID PRN (Reason: shortness of breath or wheezing) Qty: 6.7 0RF No Action prochlorperazine maleate 10 mg tablet 10 mg PO Q8H PRN (Reason: nausea and vomiting) Qty: 14 0RF prochlorperazine 25 mg suppository 25 mg RI Q12H PRN (Reason: nausea and vomiting) Qty: 12 0RF Referrals: Miscellaneous,Doctor, MD [Primary Care Provider] - Stand Alone Forms: Patient Portal/API ED Sign-out <Saul Mora, - Last Filed: 08/21/24 16:50> Cosign ED Attending Cosignature Attestation: Dr Mora Co-Sign Statement: I was available for consultation during this patient's emergency department visit. This chart is signed by myself for administrative purposes only. I did not have direct contact with this patient during this visit. They were seen independently by the APC.
[2024-08-21 14:03] LABS: Influenza A - CEPHEID Flu A NEGATIVE (NEGATIVE); Influenza B - CEPHEID Flu B NEGATIVE (NEGATIVE); Respiratory Syncytial Virus Negative (Negative)
[2024-08-21 14:25] LABS: COVID-19 CEPHEID 4-PLEX PCR POSITIVE (Negative)
[2024-08-21 14:30] VITALS: BP 105/68; PULSE 97; RESP 16; TEMP 36.3; O2SAT 93
== END 2024-08-21 14:30 | disposition home or self-care (01) ==
PROVIDERS: Emergency Provider Physician Assistant
DX: U07.1 COVID-19 (principal); J18.9 Pneumonia, unspecified organism
CPT/HCPCS: 0241U; 71046; 99281; 99283

== ENCOUNTER 2024-10-03 20:13 | Inpatient (IN) | payer MEDICARE, SELFPAY ==
[2024-10-03] VITALS (13 sets, daily range): BP systolic 109–127; BP diastolic 58–75; PULSE 71–78; RESP 16–30; TEMP 36.6; O2SAT 91–98; BMI 28.6
[2024-10-03 20:54] LABS: Add Manual Diff / Slide Review NO; Basophils Absolute Auto 0 /uL (0-100); Basophils Percent Auto 0.4 % (0-2); Eosinophils Absolute Auto 300 /uL (0-450); Eosinophils Percent Auto 4.5 % (2-4); Hematocrit 27.8 % (36-46); Hemoglobin 9.2 g/dL (12.0-16.0); Lymphocytes Absolute Auto 500 /uL (1100-4500); Lymphocytes Percent Auto 6.8 % (25-40); Mean Corpuscular HGB Conc 33.3 % (30-36); Mean Corpuscular Hemoglobin 26.8 PG (26-34); Mean Corpuscular Volume 80.5 fL (80-100); Monocytes Absolute Auto 700 /uL (0-900); Monocytes Percent Auto 8.6 % (3-14); Neutrophils Absolute Auto 6100 /uL (1500-7000); Neutrophils Percent Auto 79.7 % (50-75); Platelet Count 109 X10^3/uL (150-400); Red Blood Cell Count 3.45 X10^6/uL (4.0-5.2); Red Cell Distribution Width 18.5 % (11.6-14.8); White Blood Cell Count 7.6 X10^3/uL (4.5-11.0)
--- NOTE | 2024-10-03 21:10 | ED_ITS ---
HPI - General Adult General Chief complaint: Shortness of Breath/Dyspnea Stated complaint: Sob, abd pain Time Seen by Provider: 10/03/24 20:25 Source: patient and EMS Mode of arrival: EMS History of Present Illness HPI narrative: 69-year-old female with complex medical history recently discharged from [facility] for GI bleeding, had cautery to colonic vessel, single packed cells blood transfusion. Now complains of shortness of breath, and abdominal pain/distention. History of nonalcoholic liver disease and ascites, prior paracentesis procedures but none recent. 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 Right-sided facial droop and inability to close right eye felt to be due to metastatic disease. Released from the hospital 2 days ago after transfusion and cautery of colonic vessel lesion, no black or red stools, feels more short of breath since discharge, some abdominal distention occurring during the hospital stay seems further increased. Denies chest pain. Uses inhaler at home, tried inhaler at home but did not help her shortness of breath. Arrived by EMS, given oxygen during transport. Not usually on home oxygen. Related Data Previous Rx's Medication Instructions Recorded prochlorperazine 25 mg rectal 25 mg WI Q12H PRN nausea and 06/29/24 suppository vomiting #12 ea prochlorperazine maleate 10 mg 10 mg PO Q8H PRN nausea and 06/29/24 tablet vomiting #14 tabs albuterol sulfate 90 mcg/actuation 1 inh inhalation QID PRN shortness 08/21/24 aerosol inhaler (Ventolin HFA) of breath or wheezing #6.7 grams azithromycin 250 mg tablet See Rx Instructions PO .COMPLEX #6 08/21/24 (Zithromax Z-Nelson) tabs Allergies Allergy/AdvReac Type Severity Reaction Status Date / Time No Known Allergies Allergy Verified 08/21/24 12:03 Review of Systems Review of Systems Narrative: See HPI Patient History Medical History Squamous cell carcinoma of head and neck 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 HEAD: Atraumatic. Normocephalic. EYES: Inability to close right eye apparently ongoing, scleral injection without discharge. Pupils equal round and reactive. Extraocular motions intact. No scleral icterus. No injection or drainage. ENT: Nose without bleeding, purulent drainage. Throat without erythema, tonsillar hypertrophy or exudate. Airway patent. NECK: Trachea midline. Non tender CARDIOVASCULAR: Regular rate and rhythm without murmurs, gallops, or rubs. RESPIRATORY: Clear to auscultation. Breath sounds equal bilaterally. No wheezes, rales, or rhonchi. Right anterior chest Port-A-Cath acc, site without redness or swelling. GASTROINTESTINAL: Abdominal distention, right middle lower quadrant area of small hematoma from recent subcutaneous heparin dose while inpatient, no guarding or rebound tenderness. Central tympany, consistent with likely ascites. EXTREMITIES: No edema or joint tenderness. BACK: Nontender without deformity or crepitance. No flank tenderness. NEURO: AOx3. Right facial droop and inability to close right eye ongoing, felt to be due to metastatic cancer base of brain per patient/family. Other cranial nerves intact. Motor functions 5/5 upper extremities and lower extremities. SKIN: No rash or erythema of visible areas Initial Vital Signs Initial Vital Signs: Vital Signs Temperature 98 F 10/03/24 20:15 Pulse Rate 75 10/03/24 20:15 Respiratory Rate 26 H 10/03/24 20:15 Blood Pressure 127/75 10/03/24 20:15 Pulse Oximetry 96 10/03/24 20:15 Oxygen Delivery Method Nasal Cannula 10/03/24 20:15 Oxygen Flow Rate 3 10/03/24 20:15 Course Orders Ordered: ED Orders 10/03/24 20:43 Complete Blood Count AUTO DIFF Stat Comprehensive Metabolic Panel Stat Lipase Stat Prothrombin Time INR Stat Troponin I Stat 10/03/24 21:44 CT angio chest abdomen pelvis Stat 10/03/24 21:48 Respiratory Panel (Film Array) Stat 10/03/24 23:21 EKG-12 Lead Stat 10/03/24 23:31 Education, smoking cessation ONGOING Acetaminophen (Acetaminophen 325 Mg Tablet) 650 mg PO Q6H PRN PRN Reason: Fever/Mild Pain (1-3) Artificial Tears (Mineral Oil/Petrol Ophth Oint 3.5 Gm) 1 applic EYE-RIGHT BEDTIME PRN PRN Reason: Dry Eye(s) Heparin Sodium (Porcine) (Heparin 500 Unit/5 Ml Port Flush) 500 unit IV PRN PRN PRN Reason: Flush Last Admin: 10/04/24 00:00 Dose: 500 unit Documented By: BRITNI Remdesivir 100 mg/ Sodium (Chloride) 250 mls @ 250 mls/hr IV Q24H [facility] Stop: 10/07/24 21:59 Morphine Sulfate (Morphine 4 Mg/Ml Inj) 3 mg IV Q4H PRN PRN Reason: severe pain Last Admin: 10/04/24 00:24 Dose: 3 mg Documented By: BRITNI Naloxone HCl (Naloxone 0.4 Mg/Ml Vial) 0.2 mg IV Q2MIN PRN PRN Reason: Opiate Reversal Ondansetron HCl (Ondansetron 4 Mg/2 Ml Inj) 4 mg IV Q8HR PRN PRN Reason: Nausea And Vomiting Oxycodone HCl (Oxycodone Ir 5 Mg Tablet) 5 mg PO Q3H PRN PRN Reason: Pain, Moderate (4-6) Last Admin: 10/04/24 00:24 Dose: 5 mg Documented By: BRITNI Pantoprazole Sodium (Pantoprazole Dr 40 Mg Tablet) 40 mg PO 0700,2100 [facility] Discontinued Medications Albuterol (Albuterol 2.5 Mg/3 Ml Neb (Adult)) 2.5 mg INH NOW ONE Stop: 10/03/24 21:37 Last Admin: 10/03/24 22:31 Dose: 2.5 mg Documented By: JENISE Hydromorphone HCl (Hydromorphone 1 Mg Inj) 0.5 mg IV NOW ONE Stop: 10/03/24 21:50 Last Admin: 10/03/24 21:56 Dose: 0.5 mg Documented By: BRITNI Remdesivir 200 mg/ Sodium (Chloride) 250 mls @ 250 mls/hr IV NOW ONE Stop: 10/04/24 00:27 Sterile Water (Water For Injection,Sterile 500 Ml) 40 ml IV NOW ONE Stop: 10/04/24 00:38 Vital Signs Vital signs: Vital Signs - 8 hr 10/03/24 20:15 10/03/24 20:19 10/03/24 20:20 Temperature 98 F 98 F Pulse Rate 75 75 75 Respiratory Rate 26 H 24 Blood Pressure 127/75 Pulse Oximetry 96 97 97 Oxygen Delivery Method Nasal Cannula Nasal Cannula Nasal Cannula Oxygen Flow Rate 3 3 3 Fraction of Inspired Oxygen 10/03/24 20:20 10/03/24 20:30 10/03/24 20:31 Temperature Pulse Rate 72 73 Respiratory Rate 26 H Blood Pressure 127/75 Pulse Oximetry 97 97 Oxygen Delivery Method Nasal Cannula Nasal Cannula Oxygen Flow Rate 3 3 Fraction of Inspired Oxygen 10/03/24 20:31 10/03/24 21:00 10/03/24 21:30 Temperature Pulse Rate 78 78 Respiratory Rate Blood Pressure 111/74 109/64 117/66 Pulse Oximetry 98 98 Oxygen Delivery Method Nasal Cannula Room Air Oxygen Flow Rate 3 Fraction of Inspired Oxygen 10/03/24 22:13 10/03/24 22:15 10/03/24 22:30 Temperature Pulse Rate 73 73 73 Respiratory Rate 22 25 H Blood Pressure 118/67 126/71 Pulse Oximetry 91 97 96 Oxygen Delivery Method Room Air Nasal Cannula Nasal Cannula Oxygen Flow Rate 1 1 Fraction of Inspired Oxygen 10/03/24 22:34 10/03/24 23:00 Temperature Pulse Rate 72 71 Respiratory Rate 16 30 H Blood Pressure 112/58 L Pulse Oximetry 96 95 Oxygen Delivery Method Nasal Cannula Oxygen Flow Rate 2 Fraction of Inspired Oxygen 28 Medical Decision Making Lab Data Lab results reviewed: Yes I reviewed the patient's lab results. Lab results narrative: White blood cell count 7600, hemoglobin 9.2, platelets [id number]. Sodium 132, potassium 4.1, serum CO2 24, BUN 9 with creatinine 0.4 normal. Glucose 110. Total bilirubin 1.5, AST ALT alk phosphatase all normal. Lipase 77 normal. Troponin negative/unmeasurable. Respiratory panel positive for COVID, otherwise negative. 10/03/24 20:43 10/03/24 20:43 Labs: Lab Results 10/03/24 10/03/24 Range/Units 20:43 21:48 WBC 7.6 (4.5-11.0) X10^3/uL RBC 3.45 L (4.0-5.2) X10^6/uL Hgb 9.2 L (12.0-16.0) g/dL Hct 27.8 L (36-46) % MCV 80.5 (80-100) fL MCH 26.8 (26-34) PG MCHC 33.3 (30-36) % RDW 18.5 H (11.6-14.8) % Plt Count 109 L (150-400) X10^3/uL Neut % (Auto) 79.7 H (50-75) % Lymph % (Auto) 6.8 L (25-40) % [place] % (Auto) 8.6 (3-14) % Eos % (Auto) 4.5 H (2-4) % Baso % (Auto) 0.4 (0-2) % Neut # (Auto) 6100 (9613-5708) /uL Lymph # (Auto) 500 L (0129-5624) /uL [place] # (Auto) 700 (0-900) /uL Eos # (Auto) 300 (0-450) /uL Baso # (Auto) 0 (0-100) /uL PT 14.8 H (9.4-12.5) SECONDS INR 1.3 (0.9-1.3) Sodium 132 L (137-145) mmol/L Potassium 4.1 (3.4-5.1) mmol/L Chloride 102 (98-107) mmol/L Carbon Dioxide 24 (22-32) mmol/L BUN 9 (7-17) mg/dL Creatinine 0.64 (0.52-1.04) mg/dL Estimated GFR > 60 (>60) mL/min BUN/Creatinine Ratio 14.1 (6-22) Glucose 110 (80-110) mg/dL Calcium 7.9 L (8.4-10.2) mg/dL Total Bilirubin 1.5 H (0.2-1.3) mg/dL AST 23 (14-36) IU/L ALT 9 (<35) IU/L Alkaline Phosphatase 72 (38-126) U/L Troponin I < 0.012 (0.01-0.034) ng/mL Total Protein 6.5 (6.3-8.2) g/dL Albumin 3.5 (3.5-5.0) g/dL Globulin 3.0 (1.7-4.1) g/dL Albumin/Globulin Ratio 1.2 (1.0-2.8) Lipase 77 (23-300) U/L Chlamy pneumoniae PCR Not detected (Not Detect) Adenovirus (PCR) Not detected (Not Detect) B. pertussis DNA (PCR) Not detected (Not Detect) B.parapertussis DNA PCR Not detected (Not Detecte) Coronavirus OC43 (PCR) Not detected (Not Detect) Coronavirus HKU1 (PCR) Not detected (Not Detect) Coronavirus 229E (PCR) Not detected (Not Detect) SARS-CoV-2 (PCR) Detected H (Not Detecte) Coronavirus NL63 (PCR) Not detected (Not Detect) Human Metapneumovir PCR Not detected (Not Detect) Influenza Type A (PCR) Not detected (Not Detect) Influenza Type B (PCR) Not detected (Not Detect) M. pneumoniae (PCR) Not detected (Not Detect) Parainfluenza 1 (PCR) Not detected (Not Detect) Parainfluenza 2 (PCR) Not detected (Not Detect) Parainfluenza 3 (PCR) Not detected (Not Detect) Parainfluenza 4 (PCR) Not detected (Not Detect) RSV (PCR) Not detected (Not Detect) Entero/Rhino (PCR) Not detected (Not Detect) Imaging Data CT angiogram chest abdomen and pelvis: Radiologist's Impression: [place] [address] CT Scan Report Signed Patient: Lo Aburto MR#: [id number] : 1955 Acct:[id number] Age/Sex: 69 / F Date of Service: 10/03/24 Loc: ED Accession Number: [id number] Procedure: CT angio chest abdomen pelvis Ordering Provider: Harsha Taylor MD PROCEDURE: CT ANGIO CHEST ABDOMEN PELVIS INDICATIONS: abd pain, dist, SOB, recent hosp, off Eliquis TECHNIQUE: Precontrast 5 mm thick sections acquired from the lung apices to the iliac crests. After the administration of intravenous contrast, 2.5 mm thick sections again acquired from the lung apices to the iliac crests. Maximum intensity projection (MIP) oblique sagittal and coronal reformats were then acquired. For radiation dose reduction, the following was used: automated exposure control. COMPARISON: [facility], CT, CT ABDOMEN PELVIS W CON, 06/29/2024, 9:17. FINDINGS: Image quality: Diagnostic. AORTA: No aortic aneurysm. No acute aortic syndrome. CHEST: Lower Neck: No enlarged lymph nodes. Thyroid: No thyroid nodules which require sonographic evaluation. Axillae: No enlarged lymph nodes. Chest Wall: Unremarkable. Lungs and Pleura: Large right pleural effusion and right basilar atelectasis. Volume loss and bronchiectasis in the lingula. Heart: Heart size is normal. No pericardial effusion. Thoracic Vessels: Pulmonary arteries demonstrate normal size. Mediastinum and Sanaz: No enlarged lymph nodes. Esophagus: No wall thickening. No hiatal hernia. ABDOMEN: Liver: Cirrhosis. Single phase contrast evaluation is suboptimal for detection of hepatocellular carcinoma. No large mass identified. Hepatic cyst at the liver dome. Gallbladder: No radiopaque gallstones or wall thickening. Biliary ducts: No biliary dilation. Pancreas: No ductal dilation. Spleen: Splenomegaly. Adrenal Glands: No adrenal nodules. Kidneys and Ureters: No hydronephrosis. No solid mass. No complex renal cystic lesion which requires follow up. Stomach and Bowel: Normal colonic caliber, without significant wall thickening. Colonic diverticulosis without evidence of diverticulitis. Peritoneum: Moderate volume ascites. Ventral Wall: No hernia. Abdominal Nodes: No retroperitoneal or mesenteric adenopathy by size criteria. Vessels: Inferior vena cava is normal in size. PELVIS: Pelvic Organs: Unremarkable. Bladder: Unremarkable. Pelvic Nodes: No enlarged lymph nodes. Miscellaneous: No inguinal hernias are seen. Bones: Unremarkable. Degenerative disc disease of the lumbar spine. IMPRESSION: No acute abnormality. Large right pleural effusion, likely hepatic in origin. Cirrhotic liver morphology with portal hypertension. Consider GI referral and/or yearly HCC screening. Moderate volume ascites. Previously visualized SMV and portal vein thrombus is not seen on today's examination due to contrast timing. Findings discussed with Dr. Taylor at 10:45 p.m. On 10/03/2024. Dictated by: Russel Bernard M.D. on 10/03/2024 at 22:30 Approved by: Russel Bernard M.D. on 10/03/2024 at 22:48 ECG Data Attestation: I personally reviewed and interpreted this ECG as follows: Interpretation: Normal sinus rhythm with rate of 69, no obvious ST segment elevation or depression changes. Low amplitude T-waves lead F, upright lead 2, flat lead 3. WI 148, QRS 82, QTC 480. MDM Narrative Medical decision making narrative: 69-year-old female recently ended [facility] for GI bleeding, history of nonalcoholic liver disease and ascites, had cautery of likely prominent colonic vessel, discharged two days ago, with increasing shortness of breath and abdominal distention. No recent belly tap or lung tap procedures. Screening EKG unremarkable. Labs pending. Patient would like trial of albuterol, SVN albuterol ordered. Hemoglobin 9, no active bleeding suspected, not in arrange for transfusion. Renal function adequate. EKG no acute changes. Troponin negative. Renal function adequate. Recent colonic cautery procedure for lower GI bleeding, abdominal distention/pain, possible ascites, also no longer on Eliquis anticoagulation, shortness of breath. CT angiogram chest abdomen and pelvis was ordered. Patient was borderline sats 92% room air, was having pain, requested pain medication, IV Dilaudid 0.5 mg given, subsequent hypoxia, placed on 1 L nasal cannula oxygen. CTA chest abdomen and pelvis, shows no pulmonary embolus, does show right sided large pleural effusion, moderate ascites, no free air in the abdomen or acute abdominopelvic findings noted. Cirrhosis noted. Previous SMV and portal vein thrombus no longer visualized. See radiology report [id number], case discussed with hospitalist Dr Sutherland, would like to start patient on IV remdesivir 200mg loading dose for Covid-19, he will order further doses inpatient. He might hold off on steroids now given recent GI bleeding admission, pending review of records discharge summary from [facility] recent GI bleeding admission. He can coordinate with local Interventional Radiology for possible right therapeutic thoracentesis, and/or therapeutic paracentesis, when IR is available Saturday here. Accepts patient for admission to inpatient. Discharge Plan Departure Patient Disposition: Admitted As Inpatient Clinical Impression: Dyspnea, Hypoxia, History of GI bleed, Abdominal ascites, History of cirrhosis of liver, Pleural effusion on right, COVID-19 Admit Date/Time: 10/03/24 23:29 Admit Provider: Keron Sutherland
[2024-10-03 21:17] LABS: Alanine Aminotransferase 9 IU/L (<35); Albumin 3.5 g/dL (3.5-5.0); Albumin Globulin Ratio 1.2 (1.0-2.8); Alkaline Phosphatase 72 U/L (38-126); Aspartate Aminotransferase 23 IU/L (14-36); BUN Creatinine Ratio 14.1 (6-22); Bilirubin Total 1.5 mg/dL (0.2-1.3); Blood Urea Nitrogen 9 mg/dL (7-17); Calcium 7.9 mg/dL (8.4-10.2); Carbon Dioxide 24 mmol/L (22-32); Chloride 102 mmol/L (98-107); Estimated Glomerular Filt Rate > 60 mL/min (>60); Glucose 110 mg/dL (80-110); HEMOLYSIS < 15 (0-50); Lipase 77 U/L (23-300); Potassium 4.1 mmol/L (3.4-5.1); Sodium 132 mmol/L (137-145); Total Protein 6.5 g/dL (6.3-8.2)
[2024-10-03 21:22] LABS: INR 1.3 (0.9-1.3); Prothrombin Time 14.8 SECONDS (9.4-12.5)
--- NOTE | 2024-10-03 21:44 | DI.CT.S_ITS ---
PROCEDURE: CT ANGIO CHEST ABDOMEN PELVIS INDICATIONS: abd pain, dist, SOB, recent hosp, off Eliquis TECHNIQUE: Precontrast 5 mm thick sections acquired from the lung apices to the iliac crests. After the administration of intravenous contrast, 2.5 mm thick sections again acquired from the lung apices to the iliac crests. Maximum intensity projection (MIP) oblique sagittal and coronal reformats were then acquired. For radiation dose reduction, the following was used: automated exposure control. COMPARISON: [facility], CT, CT ABDOMEN PELVIS W CON, 06/29/2024, 9:17. FINDINGS: Image quality: Diagnostic. AORTA: No aortic aneurysm. No acute aortic syndrome. CHEST: Lower Neck: No enlarged lymph nodes. Thyroid: No thyroid nodules which require sonographic evaluation. Axillae: No enlarged lymph nodes. Chest Wall: Unremarkable. Lungs and Pleura: Large right pleural effusion and right basilar atelectasis. Volume loss and bronchiectasis in the lingula. Heart: Heart size is normal. No pericardial effusion. Thoracic Vessels: Pulmonary arteries demonstrate normal size. Mediastinum and [place]: No enlarged lymph nodes. Esophagus: No wall thickening. No hiatal hernia. ABDOMEN: Liver: Cirrhosis. Single phase contrast evaluation is suboptimal for detection of hepatocellular carcinoma. No large mass identified. Hepatic cyst at the liver dome. Gallbladder: No radiopaque gallstones or wall thickening. Biliary ducts: No biliary dilation. Pancreas: No ductal dilation. Spleen: Splenomegaly. Adrenal Glands: No adrenal nodules. Kidneys and Ureters: No hydronephrosis. No solid mass. No complex renal cystic lesion which requires follow up. Stomach and Bowel: Normal colonic caliber, without significant wall thickening. Colonic diverticulosis without evidence of diverticulitis. Peritoneum: Moderate volume ascites. Ventral Wall: No hernia. Abdominal Nodes: No retroperitoneal or mesenteric adenopathy by size criteria. Vessels: Inferior vena cava is normal in size. PELVIS: Pelvic Organs: Unremarkable. Bladder: Unremarkable. Pelvic Nodes: No enlarged lymph nodes. Miscellaneous: No inguinal hernias are seen. Bones: Unremarkable. Degenerative disc disease of the lumbar spine. IMPRESSION: No acute abnormality. Large right pleural effusion, likely hepatic in origin. Cirrhotic liver morphology with portal hypertension. Consider GI referral and/or yearly HCC screening. Moderate volume ascites. Previously visualized SMV and portal vein thrombus is not seen on today's examination due to contrast timing. Findings discussed with Dr. Taylor at 10:45 p.m. On 10/03/2024. Dictated by: Russel Bernard M.D. on 10/03/2024 at 22:30 Approved by: Russel Bernard M.D. on 10/03/2024 at 22:48
[2024-10-03] MEDS: HYDROMORPHONE 1 MG INJ 0.5 MG IV (21:56)
[2024-10-03] MEDS: ALBUTEROL 2.5 MG/3 ML NEB (ADULT) INH (22:31)
[2024-10-03 22:56] LABS: Adenovirus Not Detected (Not Detect); B. parapertussis Not Detected (Not Detecte); Bordetella pertussis Not Detected (Not Detect); Chlamydophila pneumoniae Not Detected (Not Detect); Coronavirus 229E Not Detected (Not Detect); Coronavirus HKU1 Not Detected (Not Detect); Coronavirus NL 63 Not Detected (Not Detect); Coronavirus OC43 Not Detected (Not Detect); Human Metapneumovirus Not Detected (Not Detect); Human Rhinovirus/Enterovirus Not Detected (Not Detect); Influenza A Not Detected (Not Detect); Influenza B Not Detected (Not Detect); Mycoplasma pneumoniae Not Detected (Not Detect); Parainfluenza Virus 1 Not Detected (Not Detect); Parainfluenza Virus 2 Not Detected (Not Detect); Parainfluenza Virus 3 Not Detected (Not Detect); Parainfluenza Virus 4 Not Detected (Not Detect); Respiratory Syncytial Virus Not Detected (Not Detect); SARS- CoV-2 Detected (Not Detecte)
[2024-10-03 22:56] LABS: Troponin I < 0.012 ng/mL (0.01-0.034)
--- NOTE | 2024-10-03 23:31 | EKG_ITS ---
[place] [id number] [place] [id number] Test Date: 2024-10-03 Pat Name: Lo Aburto Department: [facility] Room: 90A Gender: Female Collection Teller: NOELEL LAWRENCE : 1955 Requested By: Order Number: [id number] Reading MD: Yonis Klein Measurements Intervals [place] Rate: 69 P: -1 MA: 148 QRS: 27 QRSD: 82 T: 36 QT: 448 QTc: 480 Interpretive Statements Normal sinus rhythm Electronically Signed On 10-06-2024 18:49:58 PST by Yonis Klein
[2024-10-04] VITALS (13 sets, daily range): BP systolic 108–152; BP diastolic 58–87; PULSE 70–85; RESP 18–25; TEMP 35.9–36.8; O2SAT 94–98; BMI 24.3
[2024-10-04] MEDS: MORPHINE 4 MG/ML INJ 3 MG IV ×6 (00:24→23:55)
[2024-10-04] MEDS: OXYCODONE IR 5 MG TABLET PO ×2 (00:24→03:25)
[2024-10-04] MEDS: REMDESIVIR 200 MG in SODIUM CHLORIDE 0.9% 250 ML 250 MG IV (01:30)
[2024-10-04] MEDS: ALBUTEROL/IPRATROPIUM 3 ML AMPUL INH ×4 (03:52→23:38)
[2024-10-04 05:08] LABS: Add Manual Diff / Slide Review NO; Basophils Absolute Auto 0 /uL (0-100); Basophils Percent Auto 0.8 % (0-2); Eosinophils Absolute Auto 300 /uL (0-450); Eosinophils Percent Auto 4.6 % (2-4); Hematocrit 28.1 % (36-46); Hemoglobin 9.2 g/dL (12.0-16.0); Lymphocytes Absolute Auto 500 /uL (1100-4500); Lymphocytes Percent Auto 8.6 % (25-40); Mean Corpuscular HGB Conc 32.9 % (30-36); Mean Corpuscular Hemoglobin 26.5 PG (26-34); Mean Corpuscular Volume 80.7 fL (80-100); Monocytes Absolute Auto 600 /uL (0-900); Monocytes Percent Auto 9.3 % (3-14); Neutrophils Absolute Auto 4700 /uL (1500-7000); Neutrophils Percent Auto 76.7 % (50-75); Platelet Count 86 X10^3/uL (150-400); Red Blood Cell Count 3.48 X10^6/uL (4.0-5.2); Red Cell Distribution Width 18.2 % (11.6-14.8); White Blood Cell Count 6.2 X10^3/uL (4.5-11.0)
[2024-10-04 05:39] LABS: Alanine Aminotransferase 9 IU/L (<35); Albumin 3.5 g/dL (3.5-5.0); Albumin Globulin Ratio 1.1 (1.0-2.8); Alkaline Phosphatase 70 U/L (38-126); Aspartate Aminotransferase 24 IU/L (14-36); BUN Creatinine Ratio 12.9 (6-22); Bilirubin Total 1.3 mg/dL (0.2-1.3); Blood Urea Nitrogen 9 mg/dL (7-17); Calcium 7.9 mg/dL (8.4-10.2); Carbon Dioxide 26 mmol/L (22-32); Chloride 101 mmol/L (98-107); Estimated Glomerular Filt Rate > 60 mL/min (>60); Globulin 3.1 g/dL (1.7-4.1); Glucose 110 mg/dL (80-110); HEMOLYSIS < 15 (0-50); Potassium 4.4 mmol/L (3.4-5.1); Sodium 133 mmol/L (137-145); Total Protein 6.6 g/dL (6.3-8.2)
[2024-10-04 05:39] LABS: Appearance Urine UA CLEAR; Bilirubin Urine UA NEGATIVE (NEGATIVE); Color Urine UA YELLOW; Glucose Urine UA NEGATIVE (Negative); Ketones Urine UA 1+ (NEGATIVE); Nitrite Urine UA NEGATIVE (Negative); Occult Blood Urine UA NEGATIVE (Negative); Protein Urine UA NEGATIVE (Negative)
--- NOTE | 2024-10-04 05:41 | P.HP_ITS ---
History of Present Illness History of Present Illness Chief complaint: Sob, abd pain Narrative: 69 year old female with past medical history of squamous cell carcinoma of the head and neck currently on proton therapy, liver 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, Upper GID/Esophageal and ESLD with cirhosis presents with shortness of breath. Note, the patient was recently admitted and discharge from [facility] over last few days for GIB. There the patient had cautery to colonic vessel and had blood transfusion. The patient reports that the patient went home and started to have increasing shortness of breath and abdominal distention. The patient however denies any cough, fever, chills, nausea, vomiting or diarrhea. The patient also denies any GIB. 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 Also, patient was on Eliquis for hepatic vein thrombosis but due to recent GIB, it was discontinue. In our ER, the patient was hemodynamically stable. The patient had CT chest/abd/pevlic with contrast which shows no acute findings other than large Right pleural effusion and ascites. Note, labs shows no significant change from baseline. Patient however was positive for COVID. Patient was given Remdesivir. The patient did require 1L of O2 per NC. Due to symptomatic pleural effusion and positive for COVID, our ER physician requested for admission for plan thoracentesis on Saturday. [facility] Medical History Squamous cell carcinoma of head and neck 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 Upper gastrointestinal hemorrhage Esophageal varices Social History household members: significant other Smoking Status: Never smoker Meds Home Medications and Allergies Home Medications Medication Instructions Recorded Confirmed Type prochlorperazine 25 mg rectal 25 mg NJ Q12H PRN nausea and 06/29/24 Rx suppository vomiting #12 ea prochlorperazine maleate 10 mg 10 mg PO Q8H PRN nausea and 06/29/24 Rx tablet vomiting #14 tabs albuterol sulfate 90 mcg/actuation 1 inh inhalation QID PRN shortness 08/21/24 Rx aerosol inhaler (Ventolin HFA) of breath or wheezing #6.7 grams furosemide 40 mg tablet 40 mg PO DAILY 10/04/24 10/04/24 History morphine 15 mg tablet,extended 30 mg PO BEDTIME 10/04/24 10/04/24 History release (MS Contin) nadolol 20 mg tablet 20 mg PO DAILY 10/04/24 10/04/24 History oxycodone 10 mg tablet 10 mg PO Q4H PRN severe pain 10/04/24 10/04/24 History spironolactone 100 mg tablet 100 mg PO DAILY 10/04/24 10/04/24 History Allergies Allergy/AdvReac Type Severity Reaction Status Date / Time No Known Allergies Allergy Verified 08/21/24 12:03 Review of Systems Review of Systems ROS: Yes All systems reviewed with the patient and are negative except as otherwise documented Exam Vital Signs (past 8 hours): - 10/03/24 23:00 10/03/24 23:30 10/04/24 00:00 Temperature Pulse Rate 71 71 72 Respiratory Rate 30 H 25 H Blood Pressure 112/58 L 125/72 134/87 Pulse Oximetry 95 96 97 Oxygen Delivery Method Oxygen Flow Rate Fraction of Inspired Oxygen 10/04/24 00:30 10/04/24 00:55 10/04/24 01:21 PDT Temperature 97.2 F L Pulse Rate 77 73 Respiratory Rate 24 18 Blood Pressure 137/70 140/75 Pulse Oximetry 96 96 Oxygen Delivery Method Nasal Cannula Nasal Cannula Oxygen Flow Rate 1.5 1.5 Fraction of Inspired Oxygen 10/04/24 03:52 10/04/24 04:40 Temperature 96.7 F L Pulse Rate 80 70 Respiratory Rate 18 18 Blood Pressure 115/63 Pulse Oximetry 97 96 Oxygen Delivery Method Nasal Cannula Oxygen Flow Rate 2 1.5 Fraction of Inspired Oxygen 28 Fraction of Inspired Oxygen 28 SaO2/FiO2 Ratio 346 Oxygen Delivery Method Nasal Cannula Oxygen Flow Rate 1.5 Narrative Exam Narrative: GENERAL: The patient is not in any acute distressed. Awake and alert. HEENT: Nonicteric sclerae, PERRLA, EOMI. Oropharynx clear. Moist mucous membranes. Conjunctivae appear well perfused. HEART: Regular rate and rhythm without murmurs. 1+ lower extremities edema. LUNGS: Decreased right lung sound otehrwise Clear to auscultation bilaterally. No wheezing, crackles or rhonchi ABDOMEN: Soft, slightly distended, positive bowel sounds, nontender positive for ascities. SKIN: No rash, no excessive bruising, petechiae, or purpura. NEUROLOGIC: AxO x 3. Cranial nerves II-XII intact without motor/sensory deficit. Objective Labs 10/04/24 04:35 10/03/24 20:43 Labs: Laboratory Results - last 24 hr 10/03/24 10/03/24 10/04/24 20:43 21:48 04:35 WBC 7.6 6.2 RBC 3.45 L 3.48 L Hgb 9.2 L 9.2 L Hct 27.8 L 28.1 L MCV 80.5 80.7 MCH 26.8 26.5 MCHC 33.3 32.9 RDW 18.5 H 18.2 H Plt Count 109 L 86 L Neut % (Auto) 79.7 H 76.7 H Lymph % (Auto) 6.8 L 8.6 L [place] % (Auto) 8.6 9.3 Eos % (Auto) 4.5 H 4.6 H Baso % (Auto) 0.4 0.8 Neut # (Auto) 6100 4700 Lymph # (Auto) 500 L 500 L Turner # (Auto) 700 600 Eos # (Auto) 300 300 Baso # (Auto) 0 0 PT 14.8 H INR 1.3 Sodium 132 L Potassium 4.1 Chloride 102 Carbon Dioxide 24 BUN 9 Creatinine 0.64 Estimated GFR > 60 BUN/Creatinine Ratio 14.1 Glucose 110 Calcium 7.9 L Total Bilirubin 1.5 H AST 23 ALT 9 Alkaline Phosphatase 72 Troponin I < 0.012 Total Protein 6.5 Albumin 3.5 Globulin 3.0 Albumin/Globulin Ratio 1.2 Lipase 77 Chlamy pneumoniae PCR Not detected Adenovirus (PCR) Not detected B. pertussis DNA (PCR) Not detected B.parapertussis DNA PCR Not detected Coronavirus OC43 (PCR) Not detected Coronavirus HKU1 (PCR) Not detected Coronavirus 229E (PCR) Not detected SARS-CoV-2 (PCR) Detected H Coronavirus NL63 (PCR) Not detected Human Metapneumovir PCR Not detected Influenza Type A (PCR) Not detected Influenza Type B (PCR) Not detected M. pneumoniae (PCR) Not detected Parainfluenza 1 (PCR) Not detected Parainfluenza 2 (PCR) Not detected Parainfluenza 3 (PCR) Not detected Parainfluenza 4 (PCR) Not detected RSV (PCR) Not detected Entero/Rhino (PCR) Not detected Assessment & Plan Assessment & Plan narrative: Symptomatic large right sided pleural effusion. Admit the patient to medical telemetry inpatient. Note thoracentesis will be available on Saturday morning. Continue home oral lasix in the mean time. If shortness of breath worsens consider IV lasix. Also will have prn morphine for air hunger. Positive for COVID. Will continue Remdesivir for now. Note patient recently had GIB and high risk for recurrent GIB. Hold off any steroids for now. Acute respiratory failure with hypoxemia. Mild, currently on 1L of O2 per NC. Likely from above. Treat as above and wean down O2 as able. ESLD with ascites/pleural effusion. Resume home medications and plan for thoracentesis. Recent GIB. Though reported lower GIB will continue pantoprazole. DVT PPx SCDs for now due to recent GIB recquiring transfusion. Code status DNR/DNI Disposition home in 2 days Time-Based Coding :: [TOTAL MINUTES] spent with patient and on the chart (including review of chart, obtaining history, exam, reviewing outside data, placing orders, documenting exam and treatment plan, and counseling patient) on [DATE].
[2024-10-04 05:47] LABS: pH Urine UA 5.5 (4.5-8.0)
[2024-10-04 05:48] LABS: Bacteria Urine None Seen; Culture Indicated Urine Cult Not Indicated; Leukocyte Esterase Urine UA NEGATIVE (NEGATIVE); RBC Urine None Seen (0-5/HPF); Squamous Epithelial Cell Urine 0-1 /HPF (0-5/HPF); Urine Volume 10mL (spun); WBC Urine None Seen (0-5/HPF)
[2024-10-04] MEDS: PANTOPRAZOLE DR 40 MG TABLET PO ×2 (06:23→20:23)
[2024-10-04] MEDS: OXYCODONE IR 10 MG TABLET PO ×3 (08:03→18:03)
[2024-10-04] MEDS: SPIRONOLACTONE 25 MG TABLET 100 MG PO (08:03)
[2024-10-04] MEDS: FUROSEMIDE 40 MG TABLET PO (08:03)
--- NOTE | 2024-10-04 09:28 | CM.DANOTE ---
B DCP Assessment Note Pt is a 69yo F here with COVID/right sided PE/PMH of squamous cell carcinoma of the head and neck currently on proton therapy, liver 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, Upper GID/Esophageal and ESLD (H&P). recent dc from a few days ago for gastrointestinal bleeding. 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 currently on 1.5ltrs O2, room air at baseline. PCP none listed Payer [facility] and self pay CUSTOMS COMPLIANCE SPECIALIST reviewed EMR. per H&P, plan is for thoracentesis on Saturday. Per chart, pt lives in [place] with sig other. CUSTOMS COMPLIANCE SPECIALIST did not meet with pt in room due to pos COVID diagnosis. P: medical POC continues, anticipate home with partner when medically stable. no obvious needs identified from chart review at this time. CM team will continue to follow closely SY Erwin Discharge Planning/Care Management CM Discharge Assessment Start: 10/04/24 09:23 Freq: Status: Active Protocol: Document 10/04/24 09:24 (Rec: 10/04/24 09:28 [id number]) Discharge Planning Assessment Assigned Leadership Development Consultant SY Silva DPOA/Assigned Designee Name Maritza, unknown? Contact Information [phone] Advance Directives? No: but according to [facility] pt is a DNR History Provided By Family Member,Medical Record Prior Living Arrangements House Household Members significant other Discharge Plan Home Referrals Initiated None needed Comment CUSTOMS COMPLIANCE SPECIALIST did not meet with pt in room due to pos COVID diagnosis Review Status In Process Please Provide Date Initial DC 10/04/24 Assessment Was Performed Next Review Type Continued Stay Review
[2024-10-04] MEDS: PROPRANOLOL 10 MG TABLET PO (10:34)
--- NOTE | 2024-10-04 10:38 | PT-IP ANOTE ---
PT consult received. PT reviewed chart in preparation for eval and then pt discussed in rounds. Pt to have thoracocentesis and paracentesis next date per MD and will hold PT until after these procedures to improve mobility tolerance.
--- NOTE | 2024-10-04 11:10 | PM.PN.1 ---
Subjective Subjective Date Patient Seen: 10/04/24 Time Patient Seen: 09:40 Interval history: Narrative: 69 year old female with past medical history of squamous cell carcinoma of the head and neck currently on proton therapy, liver 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, Upper GID/Esophageal and ESLD with cirhosis presents with shortness of breath. Note, the patient was recently admitted and discharge from [facility] over last few days for GIB. There the patient had cautery to colonic vessel and had blood transfusion. The patient reports that the patient went home and started to have increasing shortness of breath and abdominal distention. The patient however denies any cough, fever, chills, nausea, vomiting or diarrhea. The patient also denies any GIB. 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 Also, patient was on Eliquis for hepatic vein thrombosis but due to recent GIB, it was discontinue. In our ER, the patient was hemodynamically stable. The patient had CT chest/abd/pevlic with contrast which shows no acute findings other than large Right pleural effusion and ascites. Note, labs shows no significant change from baseline. Patient however was positive for COVID. Patient was given Remdesivir. The patient did require 1L of O2 per NC. Due to symptomatic pleural effusion and positive for COVID, our ER physician requested for admission for plan thoracentesis on Saturday. Interval history: Patient states she has not had COVID symptoms, though is aware of having had COVID 2 months ago. She does note shortness of breath with orthopnea, attributed to fluid noted in her lung as well as significant abdominal ascites, for which she undergoes periodic paracenteses. She is looking forward to thoracentesis and paracentesis. Exam Vital Signs (past 8 hours): - 10/04/24 03:52 10/04/24 04:40 10/04/24 08:00 Temperature 96.7 F L Pulse Rate 80 70 82 Respiratory Rate 18 18 20 Blood Pressure 115/63 143/80 H Pulse Oximetry 97 96 95 Oxygen Delivery Method Nasal Cannula Oxygen Flow Rate 2 1.5 1.5 Fraction of Inspired Oxygen 28 10/04/24 08:00 10/04/24 08:00 10/04/24 08:21 Temperature Pulse Rate 76 Respiratory Rate 24 Blood Pressure Pulse Oximetry 94 94 Oxygen Delivery Method Nasal Cannula Nasal Cannula Nasal Cannula Oxygen Flow Rate 2 1.5 Fraction of Inspired Oxygen 26 Fraction of Inspired Oxygen 26 SaO2/FiO2 Ratio 361 Oxygen Delivery Method Nasal Cannula Oxygen Flow Rate 1.5 Narrative Exam Narrative: GENERAL: The patient is not in any acute distressed. Awake and alert. HEENT: Nonicteric sclerae, PERRLA, EOMI. Oropharynx clear. Moist mucous membranes. Conjunctivae appear well perfused. HEART: Regular rate and rhythm without murmurs. 1+ lower extremities edema. LUNGS: Decreased right lung sound to midlung field, with dullness to percussion in the right lower 1/3 lung field, otherwise clear to auscultation bilaterally. No wheezing, crackles or rhonchi ABDOMEN: Soft, markedly distended, nontender, notable for ascites. SKIN: No rash, no excessive bruising, petechiae, or purpura. NEUROLOGIC: AxO x 3. Cranial nerves II-XII intact without motor/sensory deficit. Objective Labs 10/04/24 04:35 10/04/24 04:35 Labs: Laboratory Results - last 24 hr 10/03/24 10/03/24 10/04/24 20:43 21:48 04:35 WBC 7.6 6.2 RBC 3.45 L 3.48 L Hgb 9.2 L 9.2 L Hct 27.8 L 28.1 L MCV 80.5 80.7 MCH 26.8 26.5 MCHC 33.3 32.9 RDW 18.5 H 18.2 H Plt Count 109 L 86 L Neut % (Auto) 79.7 H 76.7 H Lymph % (Auto) 6.8 L 8.6 L [place] % (Auto) 8.6 9.3 Eos % (Auto) 4.5 H 4.6 H Baso % (Auto) 0.4 0.8 Neut # (Auto) 6100 4700 Lymph # (Auto) 500 L 500 L [place] # (Auto) 700 600 Eos # (Auto) 300 300 Baso # (Auto) 0 0 PT 14.8 H INR 1.3 Sodium 132 L 133 L Potassium 4.1 4.4 Chloride 102 101 Carbon Dioxide 24 26 BUN 9 9 Creatinine 0.64 0.70 Estimated GFR > 60 > 60 BUN/Creatinine Ratio 14.1 12.9 Glucose 110 110 Calcium 7.9 L 7.9 L Total Bilirubin 1.5 H 1.3 AST 23 24 ALT 9 9 Alkaline Phosphatase 72 70 Troponin I < 0.012 Total Protein 6.5 6.6 Albumin 3.5 3.5 Globulin 3.0 3.1 Albumin/Globulin Ratio 1.2 1.1 Lipase 77 Urine Color Urine Appearance Urine pH Ur Specific [place] Urine Protein Urine Glucose (UA) Urine Ketones Urine Occult Blood Urine Nitrate Urine Bilirubin Urine Urobilinogen Ur Leukocyte Esterase Urine RBC Urine WBC Ur Squamous Epith Cells Urine Bacteria Ur Culture Indicated? Vol Urine Centrifuged Chlamy pneumoniae PCR Not detected Adenovirus (PCR) Not detected B. pertussis DNA (PCR) Not detected B.parapertussis DNA PCR Not detected Coronavirus OC43 (PCR) Not detected Coronavirus HKU1 (PCR) Not detected Coronavirus 229E (PCR) Not detected SARS-CoV-2 (PCR) Detected H Coronavirus NL63 (PCR) Not detected Human Metapneumovir PCR Not detected Influenza Type A (PCR) Not detected Influenza Type B (PCR) Not detected M. pneumoniae (PCR) Not detected Parainfluenza 1 (PCR) Not detected Parainfluenza 2 (PCR) Not detected Parainfluenza 3 (PCR) Not detected Parainfluenza 4 (PCR) Not detected RSV (PCR) Not detected Entero/Rhino (PCR) Not detected 10/04/24 05:30 WBC RBC Hgb Hct MCV MCH MCHC RDW Plt Count Neut % (Auto) Lymph % (Auto) [place] % (Auto) Eos % (Auto) Baso % (Auto) Neut # (Auto) Lymph # (Auto) [place] # (Auto) Eos # (Auto) Baso # (Auto) PT INR Sodium Potassium Chloride Carbon Dioxide BUN Creatinine Estimated GFR BUN/Creatinine Ratio Glucose Calcium Total Bilirubin AST ALT Alkaline Phosphatase Troponin I Total Protein Albumin Globulin Albumin/Globulin Ratio Lipase Urine Color Yellow Urine Appearance Clear Urine pH 5.5 Ur Specific Pel[place] 1.020 Urine Protein Negative Urine Glucose (UA) Negative Urine Ketones 1+ H Urine Occult Blood Negative Urine Nitrate Negative Urine Bilirubin Negative Urine Urobilinogen 1.0 Ur Leukocyte Esterase Negative Urine RBC None seen Urine WBC None seen Ur Squamous Epith Cells 0-1 /hpf Urine Bacteria None seen Ur Culture Indicated? Cult not indicated Vol Urine Centrifuged 10ml (spun) Chlamy pneumoniae PCR Adenovirus (PCR) B. pertussis DNA (PCR) B.parapertussis DNA PCR Coronavirus OC43 (PCR) Coronavirus HKU1 (PCR) Coronavirus 229E (PCR) SARS-CoV-2 (PCR) Coronavirus NL63 (PCR) Human Metapneumovir PCR Influenza Type A (PCR) Influenza Type B (PCR) M. pneumoniae (PCR) Parainfluenza 1 (PCR) Parainfluenza 2 (PCR) Parainfluenza 3 (PCR) Parainfluenza 4 (PCR) RSV (PCR) Entero/Rhino (PCR) [facility] Medical History Squamous cell carcinoma of head and neck 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 Upper gastrointestinal hemorrhage Esophageal varices Social History household members: significant other Smoking Status: Never smoker Assessment & Plan Assessment & Plan narrative: 1. Symptomatic large right sided pleural effusion. Admit the patient to medical telemetry inpatient. Note thoracentesis will be available on Saturday morning. Continue home oral lasix in the mean time. If shortness of breath worsens consider IV lasix. Also will have prn morphine for air hunger. 2. Positive for COVID. Unclear if symptomatic given hypoxemia. Will continue Remdesivir for now. Note patient recently had GIB and high risk for recurrent GIB. Hold off any steroids for now. 3. Acute respiratory failure with hypoxemia. Mild, currently on 1.5L of O2 per NC. Likely from above. Treat as above and wean down O2 as able. 4. 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 Resume home medications and plan for thoracentesis as well as paracentesis. 5. Squamous cell carcinoma of head and neck, on proton beam therapy per Dr. Moreno at [facility]. 6. Recent GIB, hospitalized recently at [facility]. Reported lower GIB. Will continue pantoprazole. 7. DVT PPx SCDs for now due to recent GIB recquiring transfusion. Code status DNR/DNI Disposition home in 2 days, possibly after thoracentesis/paracentesis if doing well per PROFEE Charge codes Subsequent inpatient/observation care: [id number]
--- NOTE | 2024-10-04 11:15 | DI.RAD.S_ITS ---
PROCEDURE: XR CHEST 1V INDICATIONS: right effusion TECHNIQUE: One view of the chest was acquired. COMPARISON: [facility], CR, XR CHEST 2V, 08/21/2024, 13:08. [facility], CT, CT ANGIO CHEST ABDOMEN PELVIS, 10/03/2024, 21:51. FINDINGS: Surgical changes and devices: There is a stable right-sided chest port. Lungs and pleura: There is a moderately sized right-sided pleural effusion, with overlying presumed atelectasis. No pneumothorax can be seen on this semiupright study. The left lung appears clear. Mediastinum: The cardiac contours are within normal limits. The aorta demonstrates calcification and tortuosity. Bones and chest wall: No suspicious bony lesions. Age-appropriate bony degenerative changes are seen. Overlying soft tissues appear unremarkable. IMPRESSION: Moderate right-sided pleural effusion, with overlying presumed atelectasis. Dictated by: Fran Rosenthal M.D. on 10/04/2024 at 10:46 Approved by: Fran Rosenthal M.D. on 10/04/2024 at 10:47
[2024-10-04] MEDS: LORazepam 0.5 MG TABLET PO ×2 (14:56→20:23)
[2024-10-04] MEDS: MINERAL OIL/PETROL OPHTH OINT 3.5 GM 1 APPLIC EYE-BOTH (14:56)
[2024-10-04] MEDS: MORPHINE ER 15 MG TABLET 30 MG PO (20:23)
[2024-10-04] MEDS: SODIUM CHLORIDE 0.9% FLUSH 10 ML IV (20:24)
[2024-10-04] MEDS: REMDESIVIR 100 MG in SODIUM CHLORIDE 0.9% 250 ML 250 MG IV (20:24)
[2024-10-05] VITALS (7 sets, daily range): BP systolic 104–130; BP diastolic 55–87; PULSE 81–87; RESP 16–28; TEMP 35.9–36.6; O2SAT 92–96
--- NOTE | 2024-10-05 | DI.RAD.S_ITS ---
PROCEDURE: XR CHEST 1V INDICATIONS: POST THORACENTESIS TECHNIQUE: One view of the chest was acquired. COMPARISON: [facility], CR, XR CHEST 1V, 10/04/2024, 11:17. [facility], CR, XR CHEST 2V, 08/21/2024, 13:08. FINDINGS: Surgical changes and devices: Right chest wall port. Lungs and pleura: Interval right thoracentesis, with significant decreased size of the effusion. No pneumothorax. Mediastinum: Mediastinal contours appear normal. Heart size is normal. Bones and chest wall: No suspicious bony lesions. Overlying soft tissues appear unremarkable. IMPRESSION: No pneumothorax, status post right-sided thoracentesis. Dictated by: Russel Bernard M.D. on 10/05/2024 at 12:05 Approved by: Russel Bernard M.D. on 10/05/2024 at 12:07
[2024-10-05] MEDS: OXYCODONE IR 10 MG TABLET PO ×3 (05:07→17:23)
[2024-10-05 05:26] LABS: Add Manual Diff / Slide Review NO; Basophils Absolute Auto 100 /uL (0-100); Basophils Percent Auto 0.9 % (0-2); Eosinophils Absolute Auto 300 /uL (0-450); Eosinophils Percent Auto 4.7 % (2-4); Hemoglobin 9.1 g/dL (12.0-16.0); Lymphocytes Absolute Auto 600 /uL (1100-4500); Mean Corpuscular HGB Conc 33.6 % (30-36); Mean Corpuscular Hemoglobin 26.7 PG (26-34); Mean Corpuscular Volume 79.5 fL (80-100); Monocytes Absolute Auto 600 /uL (0-900); Monocytes Percent Auto 8.7 % (3-14); Neutrophils Absolute Auto 5300 /uL (1500-7000); Neutrophils Percent Auto 76.7 % (50-75); Platelet Count 82 X10^3/uL (150-400); Red Cell Distribution Width 18.5 % (11.6-14.8); White Blood Cell Count 6.9 X10^3/uL (4.5-11.0)
[2024-10-05 05:38] LABS: INR 1.4 (0.9-1.3); Prothrombin Time 15.5 SECONDS (9.4-12.5)
[2024-10-05 05:40] LABS: PTT Partial Thromboplastin Tim 31 SECONDS (25.1-36.5)
[2024-10-05 05:49] LABS: BUN Creatinine Ratio 15.2 (6-22); Blood Urea Nitrogen 10 mg/dL (7-17); Calcium 7.9 mg/dL (8.4-10.2); Carbon Dioxide 28 mmol/L (22-32); Chloride 98 mmol/L (98-107); Estimated Glomerular Filt Rate > 60 mL/min (>60); Glucose 106 mg/dL (80-110); HEMOLYSIS < 15 (0-50); Potassium 4.1 mmol/L (3.4-5.1); Sodium 132 mmol/L (137-145)
[2024-10-05] MEDS: LORazepam 0.5 MG TABLET PO (05:52)
[2024-10-05] MEDS: PANTOPRAZOLE DR 40 MG TABLET PO ×2 (06:08→21:17)
[2024-10-05] MEDS: ALBUTEROL/IPRATROPIUM 3 ML AMPUL INH (08:58)
--- NOTE | 2024-10-05 08:59 | OT.IPNOTE ---
OT eval and treat order received. Pt is planned for thorocentesis and paracentesis 10/05/24 per chart. Will hold till after procedures for increased therapy tolerance.
--- NOTE | 2024-10-05 10:00 | DI.US.S_ITS ---
PROCEDURE: US THORACENTESIS INDICATIONS: Pleural effusion TECHNIQUE: The indications, alternatives, benefits, risks, and complications of the procedure were explained to the patient. Written informed consent was obtained and placed in the chart. The chest was examined sonographically, and an appropriate site was chosen for thoracentesis. The skin was prepared and draped in the usual sterile fashion, and 1% lidocaine was infiltrated from the skin down through the pleural surface. A 19-gauge catheter-covered needle was then introduced into the pleural space, the catheter was advanced and the needle was withdrawn, and thereafter pleural fluid was aspirated. The catheter was then removed and a dressing was applied. COMPARISON: [facility], CR, XR CHEST 1V, 10/05/2024, 11:44. FINDINGS: Access site: Right hemithorax. Needle: One-Step centesis catheter with introducer needle. Fluid volume and description: 3700 cc, straw-colored Fluid sent for diagnostic testing: None Medications: 1% lidocaine for local anaesthesia. Complications: None. No pneumothorax on post procedural CXR. Well tolerated. IMPRESSION: Successful ultrasound-guided right therapeutic thoracentesis. Dictated by: Schuyler Tripp M.D. on 10/05/2024 at 12:24 Approved by: Schuyler Tripp M.D. on 10/05/2024 at 12:29
--- NOTE | 2024-10-05 10:00 | DI.US.S_ITS ---
PROCEDURE: US ABDOMEN LIMITED INDICATIONS: ascites TECHNIQUE: Real-time scanning was performed of the abdominal ascites, with image documentation. COMPARISON: [facility], CT, CT ANGIO CHEST ABDOMEN PELVIS, 10/03/2024, 21:51. [facility], CT, CT ABDOMEN PELVIS W CON, 06/29/2024, 9:17. FINDINGS: There is mild ascites visualized in the lower abdominal quadrants, left greater than right. There is immediately adjacent bowel. IMPRESSION: Mild ascites in the lower abdominal quadrants. Paracentesis was not performed given the adjacent bowel and small volume seen at the time of attempted procedure. Dictated by: Schuyler Tripp M.D. on 10/05/2024 at 12:30 Approved by: Schuyler Tripp M.D. on 10/05/2024 at 12:34
[2024-10-05] MEDS: FUROSEMIDE 40 MG TABLET PO (10:19)
[2024-10-05] MEDS: PROPRANOLOL 10 MG TABLET PO (10:20)
[2024-10-05] MEDS: SPIRONOLACTONE 25 MG TABLET 100 MG PO (10:20)
[2024-10-05] MEDS: SODIUM CHLORIDE 0.9% FLUSH 10 ML IV ×2 (10:20→21:17)
--- NOTE | 2024-10-05 10:30 | PT-IP ANOTE ---
Pt discussed in rounds. Awaiting paracentesis and thoracentesis this date. Will hold PT eval until after these procedures to allow better activity tolerance and breathing.
--- NOTE | 2024-10-05 11:02 | CM.DPC ---
DCP Cont: Per MD, pt with complex medical hx and now requiring thora and paracentesis today with IR and wallpaperer confirming this is on their schedule for today. PT holding until after procedures to confirm pt mobilizing and better respirations. Plan: SW to follow closely after procedures today and PT eval to confirm safe d/c to home with family and any further identified discharge planning needs. SY Gomez
[2024-10-05] MEDS: MINERAL OIL/PETROL OPHTH OINT 3.5 GM 1 APPLIC EYE-BOTH (17:24)
--- NOTE | 2024-10-05 17:27 | P.PN_ITS ---
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 She is off of oxygen today after thoracentesis, does have some continued dyspnea this afternoon, there was not enough ascites for paracentesis today. Exam Vital Signs (past 8 hours): - 10/05/24 12:00 10/05/24 16:00 Temperature 96.7 F L 97.5 F L Pulse Rate 82 87 Respiratory Rate 20 16 Blood Pressure 108/77 105/55 L Pulse Oximetry 96 96 Oxygen Flow Rate 3 0 Fraction of Inspired Oxygen 24 SaO2/FiO2 Ratio 404 Oxygen Delivery Method Nasal Cannula Oxygen Flow Rate 0 Narrative Exam Narrative: GENERAL: The patient is not in any acute distressed. Awake and alert. HEENT: Nonicteric sclerae, PERRLA, EOMI. Oropharynx clear. Moist mucous membranes. Conjunctivae appear well perfused. HEART: Regular rate and rhythm without murmurs. 1+ lower extremities edema. LUNGS: Decreased right lung sound to midlung field, with dullness to percussion in the right lower 1/3 lung field, otherwise clear to auscultation bilaterally. No wheezing, crackles or rhonchi ABDOMEN: Soft, markedly distended, nontender, notable for ascites. SKIN: No rash, no excessive bruising, petechiae, or purpura. NEUROLOGIC: AxO x 3. Cranial nerves II-XII intact without motor/sensory deficit. Objective Labs 10/05/24 04:33 10/05/24 04:33 Labs: Laboratory Results - last 24 hr 10/05/24 04:33 WBC 6.9 RBC 3.40 L Hgb 9.1 L Hct 27.0 L MCV 79.5 L MCH 26.7 MCHC 33.6 RDW 18.5 H Plt Count 82 L Neut % (Auto) 76.7 H Lymph % (Auto) 9.[address] [place] % (Auto) 8.7 Eos % (Auto) 4.7 H Baso % (Auto) 0.9 Neut # (Auto) 5300 Lymph # (Auto) [address] [place] [facility] # (Auto) 600 Eos # (Auto) 300 Baso # (Auto) 100 PT 15.5 H INR 1.4 H APTT 31 Sodium 132 L Potassium 4.1 Chloride 98 Carbon Dioxide 28 BUN 10 Creatinine 0.66 Estimated GFR > 60 BUN/Creatinine Ratio 15.2 Glucose 106 Calcium 7.9 L [facility] Medical History Squamous cell carcinoma of head and neck 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 Upper gastrointestinal hemorrhage Esophageal varices Social History household members: significant other Smoking Status: Never smoker Assessment & Plan Assessment & Plan narrative: 1. Symptomatic large right sided pleural effusion. Now s/p thoracentesis, tolerated well. 2. Positive for COVID. Likely asymptomatic. With resolution of hypoxia with fluid removal will stop remdesevir. 3. Acute respiratory failure with hypoxemia. Resolved. Still mildly short of breath today. 4. 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 Not enough fluid for paracentesis noted today, continue home furosemide and aldactone. 5. Squamous cell carcinoma of head and neck, on proton beam therapy per Dr. Moreno at [facility]. 6. Recent GIB, hospitalized recently at [facility]. Reported lower GIB. Will continue pantoprazole. 7. DVT PPx SCDs for now due to recent GIB recquiring transfusion. Code status DNR/DNI Dispo: Home tomorrow if no recurrence of hypoxia while on home diuretic today and continued stability after thoracentesis today. Time-Based Coding :: [TOTAL MINUTES] spent with patient and on the chart (including review of chart, obtaining history, exam, reviewing outside data, placing orders, documenting exam and treatment plan, and counseling patient) on [DATE].
[2024-10-05] MEDS: ACETAMINOPHEN 325 MG TABLET 650 MG PO (18:25)
[2024-10-05] MEDS: MORPHINE ER 15 MG TABLET 30 MG PO (21:17)
[2024-10-06] VITALS: BP 119/67; PULSE 86; RESP 18; TEMP 36.5; O2SAT 92
[2024-10-06] MEDS: MINERAL OIL/PETROL OPHTH OINT 3.5 GM 1 APPLIC EYE-BOTH (01:36)
[2024-10-06] MEDS: OXYCODONE IR 10 MG TABLET PO ×3 (01:42→10:06)
[2024-10-06 04:54] LABS: Add Manual Diff / Slide Review NO; Basophils Absolute Auto 100 /uL (0-100); Basophils Percent Auto 1.5 % (0-2); Eosinophils Absolute Auto 200 /uL (0-450); Hematocrit 27.5 % (36-46); Lymphocytes Absolute Auto 700 /uL (1100-4500); Mean Corpuscular HGB Conc 32.8 % (30-36); Mean Corpuscular Hemoglobin 25.9 PG (26-34); Mean Corpuscular Volume 79.1 fL (80-100); Monocytes Absolute Auto 500 /uL (0-900); Monocytes Percent Auto 10.6 % (3-14); Neutrophils Absolute Auto 3300 /uL (1500-7000); Neutrophils Percent Auto 67.9 % (50-75); Platelet Count 69 X10^3/uL (150-400); Red Blood Cell Count 3.48 X10^6/uL (4.0-5.2); Red Cell Distribution Width 18.8 % (11.6-14.8); White Blood Cell Count 4.9 X10^3/uL (4.5-11.0)
[2024-10-06 05:18] VITALS: BP 97/61; PULSE 86; TEMP 35.7; O2SAT 95
[2024-10-06 05:19] LABS: Alanine Aminotransferase 10 IU/L (<35); Albumin 3.1 g/dL (3.5-5.0); Albumin Globulin Ratio 1.1 (1.0-2.8); Alkaline Phosphatase 65 U/L (38-126); Aspartate Aminotransferase 23 IU/L (14-36); BUN Creatinine Ratio 19.1 (6-22); Bilirubin Total 0.9 mg/dL (0.2-1.3); Blood Urea Nitrogen 13 mg/dL (7-17); Calcium 7.9 mg/dL (8.4-10.2); Carbon Dioxide 29 mmol/L (22-32); Chloride 99 mmol/L (98-107); Estimated Glomerular Filt Rate > 60 mL/min (>60); Globulin 2.9 g/dL (1.7-4.1); Glucose 109 mg/dL (80-110); HEMOLYSIS < 15 (0-50); Magnesium 1.8 mg/dL (1.6-2.3); Potassium 3.6 mmol/L (3.4-5.1); Sodium 132 mmol/L (137-145)
[2024-10-06] MEDS: PANTOPRAZOLE DR 40 MG TABLET PO (06:55)
[2024-10-06 07:00] VITALS: O2SAT 94
[2024-10-06 08:00] VITALS: BP 96/54; PULSE 83; RESP 18; TEMP 36.1; O2SAT 94
--- NOTE | 2024-10-06 08:27 | PM.DS.1 ---
History of Present Illness History of Present Illness Date Patient Seen: 10/06/24 Time Patient Seen: 08:27 Chief complaint: Sob, abd pain Narrative: Per admitting provider, 69 year old female with past medical history of squamous cell carcinoma of the head and neck currently on proton therapy, liver 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, Upper GID/Esophageal and ESLD with cirhosis presents with shortness of breath. Note, the patient was recently admitted and discharge from [facility] over last few days for GIB. There the patient had cautery to colonic vessel and had blood transfusion. The patient reports that the patient went home and started to have increasing shortness of breath and abdominal distention. The patient however denies any cough, fever, chills, nausea, vomiting or diarrhea. The patient also denies any GIB. 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 Also, patient was on Eliquis for hepatic vein thrombosis but due to recent GIB, it was discontinue. In our ER, the patient was hemodynamically stable. The patient had CT chest/abd/pevlic with contrast which shows no acute findings other than large Right pleural effusion and ascites. Note, labs shows no significant change from baseline. Patient however was positive for COVID. Patient was given Remdesivir. The patient did require 1L of O2 per NC. Due to symptomatic pleural effusion and positive for COVID, our ER physician requested for admission for plan thoracentesis on Saturday. Discharge Providers Provider Date of admission: 10/03/24 23:29 Discharge Date: 10/06/24 Primary care physician: Doctor Elias MD Consults: 10/03/24 23:38 Consult to Occupational Therapy Evaluate & Treat Comment: Physician Instructions: Evaluate and treat Consult to Physical Therapy Evaluate & Treat Comment: Physician Instructions: Evaluate and Treat Discharge provider: Yonis Klein DO Summary Hospital Course Discharge Diagnosis: 1. Symptomatic large right sided pleural effusion. 2. Positive for COVID. 3. Acute respiratory failure with hypoxemia. Resolved 4. 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 5. Squamous cell carcinoma of head and neck, on proton beam therapy per Dr. Moreno at [facility]. 6. Recent GIB, hospitalized recently at [facility]. Hospital Course: This is a 69 year old female with PMH of cirrhosis, squamous cell carcinoma of the neck, recent GIB who was admitted with hypoxic respiratory failure and a large R pleural effusion. She was on supplemental therapy, continued on home diuretic. Her ascites was not large enough for tap. Radiology was not available until 10/05 when they performed a thoracentesis. Shortly after this procedure patient had resolution of her hypoxia and her shortness of breath completely resolved. Because of her hypoxia and positive COVID test, she was started on remdesivir initially, though this was stopped after resolution of her hypoxia. She remained stable after thoracentesis, with no signs of reaccumulation on exam, and no return of hypoxia or shortness of breath. She will continue on home diuretics, and recommend continue follow-up with her healthcare team after discharge. Unfortunately no fluid analysis was sent, though the presumed source of her fluid is due to her cirrhosis at the time of discharge. Time Spent with Patient Time spent: Greater than 30 minutes Exam Vital Signs (past 8 hours): - 10/06/24 05:18 Temperature 96.3 F L Pulse Rate 86 Blood Pressure 97/61 Pulse Oximetry 95 Fraction of Inspired Oxygen 24 SaO2/FiO2 Ratio 404 Oxygen Delivery Method Room Air Oxygen Flow Rate 0 Narrative Exam Narrative: GENERAL: The patient is not in any acute distressed. Awake and alert. HEENT: Nonicteric sclerae, PERRLA, EOMI. Oropharynx clear. Moist mucous membranes. Conjunctivae appear well perfused. HEART: Regular rate and rhythm without murmurs. trace lower extremities edema. LUNGS: CTA b/l after thoracentesis. ABDOMEN: Soft, markedly distended, nontender, notable for ascites. SKIN: No rash, no excessive bruising, petechiae, or purpura. NEUROLOGIC: AxO x 3. Cranial nerves II-XII intact without motor/sensory deficit. Objective Labs 10/06/24 04:36 10/06/24 04:36 Labs: Laboratory Results - last 24 hr 10/06/24 04:36 WBC 4.9 RBC 3.48 L Hgb 9.0 L Hct 27.5 L MCV 79.1 L MCH 25.9 L MCHC 32.8 RDW 18.8 H Plt Count 69 L Neut % (Auto) 67.9 Lymph % (Auto) 15.0 L [place] % (Auto) 10.6 Eos % (Auto) 5.0 H Baso % (Auto) 1.5 Neut # (Auto) 3300 Lymph # (Auto) 700 L [place] # (Auto) 500 Eos # (Auto) 200 Baso # (Auto) 100 Sodium 132 L Potassium 3.6 Chloride 99 Carbon Dioxide 29 BUN 13 Creatinine 0.68 Estimated GFR > 60 BUN/Creatinine Ratio 19.1 Glucose 109 Calcium 7.9 L Magnesium 1.8 Total Bilirubin 0.9 AST 23 ALT 10 Alkaline Phosphatase 65 Total Protein 6.0 L Albumin 3.1 L Globulin 2.9 Albumin/Globulin Ratio 1.1 [facility] Medical History Squamous cell carcinoma of head and neck 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 Upper gastrointestinal hemorrhage Esophageal varices Social History household members: significant other Smoking Status: Never smoker Discharge Plan Discharge Plan Patient Disposition: Home Provider Discharge Comment: You were admitted to the hospital with fluid in your lung, this was drained, likely due to your liver disease. Continue home furosemide and spironolactone. Please follow up with your providers as previously scheduled, try to follow up with primary care in the next 1-2 weeks to recheck on symptoms to see if fluid is reaccumulating or not. Discharge orders & Medications Prescriptions: Continued prochlorperazine maleate 10 mg tablet 10 mg PO Q8H PRN (Reason: nausea and vomiting) Qty: 14 0RF prochlorperazine 25 mg suppository 25 mg PA Q12H PRN (Reason: nausea and vomiting) Qty: 12 0RF morphine [MS Contin] 15 mg tablet extended release 30 mg PO BEDTIME oxycodone 10 mg tablet 10 mg PO Q4H PRN (Reason: severe pain) nadolol 20 mg tablet 20 mg PO DAILY furosemide 40 mg tablet 40 mg PO DAILY spironolactone 100 mg tablet 100 mg PO DAILY albuterol sulfate [Ventolin HFA] 90 mcg/actuation HFA aerosol inhaler 1 inh inhalation QID PRN (Reason: shortness of breath or wheezing) Qty: 6.7 0RF Follow up/Referrals: Miscellaneous,Doctor, [Primary Care Provider] - Diet/Activity/Treatments Diet: Diet as Tolerated and Regular Diet comment: As tolerated Activity: As tolerated, no restrictions Visit Report/Discharge Packet Instructions: DI for Prescription Opioid Use, DI for Pleural Effusion Stand Alone Forms: Patient Portal/API/Survey Discharge Data Primary Care Provider: Miscellaneous,Doctor
[2024-10-06 09:00] VITALS: BP 108/51; PULSE 859; RESP 18; TEMP 36.3; O2SAT 94
[2024-10-06] MEDS: SPIRONOLACTONE 25 MG TABLET 100 MG PO (09:15)
[2024-10-06] MEDS: PROPRANOLOL 10 MG TABLET PO (09:15)
[2024-10-06] MEDS: FUROSEMIDE 40 MG TABLET PO (09:16)
[2024-10-06] MEDS: SODIUM CHLORIDE 0.9% FLUSH 10 ML IV (09:16)
[2024-10-06] MEDS: ACETAMINOPHEN 325 MG TABLET 650 MG PO (09:30)
--- NOTE | 2024-10-06 10:00 | PT.IIE ---
Current Diagnoses Pleural effusion, not elsewhere classified (10/03/24) Medical History (Last Reviewed 10/04/24 @ 11:14 by Sukhjinder Reid MD) Esophageal varices 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 Squamous cell carcinoma of head and neck Upper gastrointestinal hemorrhage Physical Therapy Inpatient Evaluation/Re-Eval M1 PT/OT-IP Prior Functional Status Start: 10/04/24 08:20 Freq: NEEDED Status: Active Protocol: Document 10/06/24 10:30 [facility] (Rec: 10/06/24 12:00 [facility] [id number]) Medical Review Prior Functional Status Communication I Mobility and Gait Use of cane Activities of Daily Living and IADL's Able to do all ADL and IADL needs. Pt's ex- assist her as well as needed. Social History Household Members significant other Living Arrangements House Number of Floors (Floors) One Floor Number of Stairs To Enter/Railing? no steps to enter Home Environment Standard Height Toilet,Walk in Shower Home Equipment Front Wheel Walker,Straight Cane,Hand Held Shower,Grab Bars Near Toilet,Grab Bars In Shower M2 PT-IP Current Condition Start: 10/04/24 08:20 Freq: NEEDED Status: Active Protocol: Document 10/06/24 10:00 AB (Rec: 10/06/24 12:12 AB [id number]) Physical Therapy Current Condition Current Condition Evaluation Date 10/06/24 Treatment Diagnosis Covid; difficulty in walking Onset Date 10/03/24 M3 PT-IP Subjective Start: 10/04/24 08:20 Freq: NEEDED Status: Active Protocol: Document 10/06/24 10:00 AB (Rec: 10/06/24 12:12 AB [id number]) Subjective Physical Therapy Visit Type Type Initial Evaluation Visit Start Time 10:00 Visit Stop Time 10:37 Number of [employer] Visits 0 Physical Therapy Visit Comments Patient Comments agreeable to do PT Therapy Pain Assessment Pain When Pain Assessed At Rest Location head Intensity 3 M4 PT-IP Mobility and Gait Start: 10/04/24 08:20 Freq: NEEDED Status: Active Protocol: Document 10/06/24 10:00 AB (Rec: 10/06/24 12:12 AB [id number]) PT-Bed Mobility Assessment Supine to Sit Supine to Sit Independent Sit to Supine Sit to Supine Independent PT-Transfer Assessment Sit to and From Stand Sit to and from Stand Standby Assistance Equipment Transfer Assistive Device Gait Belt,Straight Cane,Front Wheeled Walker Orthotic/Prosthetic Devices or Brace: No Transfers Transfer Destination Chair Transfer Technique ambulated Transfer Ability Level of Assist Standby Assistance,1 Person Assistance,Use of Upper Extremities Comments Mobility Comments Pt sitting on EOB and agreeable to do PT. obtained PLOF and home set up. pt completed bed mobility sit<> supine mod I. completed sit to stand SBA and ambulated in room using FWW ~ 20 ft SBA. Assessed ambulation using SPC and completed ~ 30 ft SBA. pt sat back on chair. Left pt with OT. Gait Assessment Gait Gait Assistance Required: Standby Assistance,1 Person Assist Distance (Feet) 30 Able to Maintain Weight Bearing Status Yes During Gait Assistive Devices Assistive Device Gait Belt,Straight Cane,Front Wheeled Walker Orthotic/Prosthetic Devices or Brace: No Factors Limiting Gait Function Factors Limiting Gait Function Decreased Activity Tolerance PT-Balance Assessment Sitting Balance and Reactions Static Sitting Balance Ability Normal Dynamic Sitting Balance Ability Good Standing Balance and Reactions Static Standing Balance Ability Good Dynamic Standing Balance Ability Fair Device Used SPC M5 PT-IP Objective Assessments Start: 10/04/24 08:20 Freq: NEEDED Status: Active Protocol: Document 10/06/24 10:00 AB (Rec: 10/06/24 12:12 AB [id number]) Orientation Orientation/Cognition Level of Alertness Alert Orientation Name,Place,Situation Language Function Ability No Deficits Noted Safety Awareness Understands Safety Issues Memory Description No Deficits Noted Gross Range of Motion Lower Extremity ROM Assessment Within Functional Limits Strength Lower Extremity Strength Assessment Within Functional Limits Sensation Assessment Sensation Gross Sensation WNL Muscle Tone Muscle Tone WNL Yes M6 PT-IP Treatment Start: 10/04/24 08:20 Freq: NEEDED Status: Active Protocol: Document 10/06/24 10:00 AB (Rec: 10/06/24 12:12 AB [id number]) Physical Therapy Treatment Education Education Provided Precautions,Weight Bearing Status,Post-Op Packet,Safety M7 PT-IP Assessment and Plan Start: 10/04/24 08:20 Freq: NEEDED Status: Active Protocol: Document 10/06/24 10:00 AB (Rec: 10/06/24 12:12 AB [id number]) PT Summary Assessment and Plan Potential Rehabilitation Potential Good Status of Condition at Evaluation Evolving Summary Impairments Pain,Strength,Balance,Bed Mobility,Transfers,Gait, Activity Tolerance Assessment Summary pt is a 69 y/o F who is admitted for Covid (+). pt also has dx squamous cell CA with brain mets and undergoing proton therapy affecting current mobility level. pt is mod I with bed mobility. pt is SBA with transfers and ambulation using SPC. SBA provided for safety. pt has her friend/ex- to assist her at home. pt may go home when medically stable. Goals Bed Mobility Goal Independent Transfer Goal Independent,Cane Gait Goal Independent,Cane Gait Distance 150 Days to Meet Goals 5 Frequency of Treatment Frequency Of Treatment Once a Day Treatment Plan Physical Therapy Treatment Plan Bed Mobility Training,Transfer Training,Gait Training, Therapeutic Exercise,Balance Retraining,Discharge Planning, Hot or Cold Pack,Neuromuscular Re-ed,Coordination Retraining Precautions Other Precautions Covid droplet precaution Recommendations To Nursing Amount of Assist Needed Standby Assistance Discharge Recommendations PT Discharge Recommendations Home with Assistance,Home Health Transportation Needs at Discharge Private Vehicle
--- NOTE | 2024-10-06 10:30 | OT.IP.EVAL ---
Current Diagnoses Pleural effusion, not elsewhere classified (10/03/24) Past Medical History (Last Reviewed 10/04/24 @ 11:14 by Sukhjinder Reid MD) Esophageal varices 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 Squamous cell carcinoma of head and neck Upper gastrointestinal hemorrhage Occupational Therapy Inpatient Evaluation/Re-Eval M1 PT/OT-IP Prior Functional Status Start: 10/04/24 08:20 Freq: NEEDED Status: Active Protocol: Document 10/06/24 10:30 [facility] (Rec: 10/06/24 12:00 [facility] [id number]) Medical Review Prior Functional Status Communication I Mobility and Gait Use of cane Activities of Daily Living and IADL's Able to do all ADL and IADL needs. Pt's ex- assist her as well as needed. Social History Household Members significant other Living Arrangements House Number of Floors (Floors) One Floor Number of Stairs To Enter/Railing? no steps to enter Home Environment Standard Height Toilet,Walk in Shower Home Equipment Front Wheel Walker,Straight Cane,Hand Held Shower,Grab Bars Near Toilet,Grab Bars In Shower M2 OT-IP Current Condition Start: 10/06/24 11:48 Freq: Status: Active Protocol: Document 10/06/24 10:30 [facility] (Rec: 10/06/24 12:00 [facility] [id number]) Occupational Therapy Current Condition Current Condition Evaluation Date 10/06/24 Treatment Diagnosis COVID+, SOB Diagnosis Onset Date 10/03/24 M3 OT- IP Subjective and Pain Start: 10/06/24 11:48 Freq: Status: Active Protocol: Document 10/06/24 10:30 [facility] (Rec: 10/06/24 12:00 [facility] [id number]) OT- Subjective Occupational Therapy Visit Type Type Initial Evaluation Visit Start Time 10:05 Visit Stop Time 10:30 Occupational Therapy Visit Comments Patient Comments Pt agreed to get up. Patient/Caregiver Goals TO go home. OT Pain Assessment Pain When Pain Assessed At Rest Pain Present Pain Present Pain Reported Location head Intensity 7 Scale Used Numeric (0 - 10) M4 OT- IP ADL's Start: 10/06/24 11:48 Freq: Status: Active Protocol: Document 10/06/24 10:30 [facility] (Rec: 10/06/24 12:00 [facility] [id number]) OT [id number] Comments OT Self-Feeding Comments Not at meal time, no issues anticipated. OT ADL-Grooming Comments OT Grooming Comments Pt wanting to do later. OT ADL-Oral Care Comments Oral Care Comments Pt wanting to do later. OT ADL-Dressing General Eval Lower Body Dressing Ability Independent Comments OT Dressing Comments I OT ADL-Toileting Comments OT Toileting Comments Pt not having to go , no issues anticipated. OT ADL-Bathing Comments OT Bathing Comments Best for pt to have assist. M5 OT- IP IADL's Start: 10/06/24 11:48 Freq: Status: Active Protocol: Document 10/06/24 10:30 [facility] (Rec: 10/06/24 12:00 [facility] [id number]) OT-Instrumental Activities of Daily Living Home Safety Awareness Awareness of Need for Assistance at Home Good Awareness Ability to Problem Solve Emergency Able to Problem Solve Situations Medication Management Medication Management No Deficits Identified Medication Management Comments Pt uses pill organizer and check list. Meal Preparation Meal Preparation No Deficits Identified Meal Preparation Comments Pt's ex assist as needed. Field Counsel Field Counsel Caregiver Provides Assist M6 OT- IP Functional Cognition Start: 10/06/24 11:48 Freq: Status: Active Protocol: Document 10/06/24 10:30 [facility] (Rec: 10/06/24 12:00 [facility] [id number]) Cognitive Factors Limiting Selfcare Function Cognitive Ability Level of Alertness Alert Patient Orientation Name,Age,Birthday,Month,Date, Year,Day of Week,Place, Situation Attention Span Ability Capable of Focused Attention, Capable of Sustained Attention Ability to Follow Commands Able to Follow Multi-Step Commands Cognitive Comments Cognitive Assessment Comments Intact OT- Vision and Hearing OT- Hearing Assessment OT- Hearing Assessment WFL OT- Vision Assessment Visual Acuity Glasses All The Time Diplopia Present Vision Assessment Comments Pt complaining of blurred right eye vision. Pt's right eye very watery and pt states going to see an eye doctor soon. M7 OT- IP Mobility and Balance Start: 10/06/24 11:48 Freq: Status: Active Protocol: Document 10/06/24 10:30 [facility] (Rec: 10/06/24 12:00 [facility] [id number]) OT- Bed Mobility Assessment Supine to Sit Supine to Sit Assist Standby Assistance Sit to Supine Sit to Supine Assist Independent OT-Transfer Assessment Sit to and From Stand Sit to and from Stand Standby Assistance Transfers Transfer Ability Standby Assistance Technique Transfer Destination Bed,Chair Transfer Technique Stand Step Pivot Devices Transfer Assistive Devices Gait Belt,Straight Cane,Front Wheeled Walker Comments Mobility Comments Pt able to use the SPC with distant SBA with good safety. OT- Balance Assessment Sitting Balance and Reactions Static Sitting Balance Ability Normal Dynamic Sitting Balance Ability Normal Standing Balance and Reactions Static Standing Balance Ability Good Dynamic Standing Balance Ability Good M8 OT- IP Objective Assessments Start: 10/06/24 11:48 Freq: Status: Active Protocol: Document 10/06/24 10:30 [facility] (Rec: 10/06/24 12:00 [facility] [id number]) OT Gross Range of Motion Upper Extremity Range of Motion Assessment Bilaterally Impaired OT Strength Upper Extremity Strength Assessment Bilaterally Impaired Comments Strength Comments BUE shoulder to distal 3-/5 to 4-/5 M9 OT- IP Assessment and Plan Start: 10/06/24 11:48 Freq: Status: Active Protocol: Document 10/06/24 10:30 [facility] (Rec: 10/06/24 12:00 [facility] [id number]) OT Summary Assessment and Plan Potential Rehabilitation Potential Good Analytic Complexity at Evaluation Low Summary OT Impairments Pain,Range of Motion,Strength, Balance,Functional Mobility, Dressing,Toileting,Bathing, Toilet Transfers,Shower Transfers,Activity Tolerance Progress Towards Goals Progressing Toward Goals Assessment Summary Pt low complexity and main barriers are pain, decreased activity tolerance and will need to have her ex- assist her more with her needs as needed. Pt to go home with assist. Goals Dressing Goal Independent Toileting Goal Independent Bathing Goal Standby Assistance Toilet Transfer Goal Independent Shower Transfer Goal Independent Days to Meet Goals 3 Frequency of Treatment Frequency Of Treatment Once a Day Treatment Plan OT Treatment Plan ADL Training,Functional Mobility,Patient/Family Education,Discharge Planning Discharge Recommendations OT Discharge Recommendations Home with Assistance Transportation Needs at Discharge Private Vehicle
--- NOTE | 2024-10-06 12:41 | CM.DPC ---
DCP Cont. Reviewed EMR and team rounds for status updates. Pt has been medically cleared for home d/c, she has a friend who will transport her home. No further needs are indicated at this time.
== END 2024-10-06 13:05 | disposition home or self-care (01) | DRG 186 ==
LOC: ED 20:25 → AC 23:30
PROVIDERS: Internal Medicine; Admitting Provider Internal Medicine; Emergency Provider Emergency Medicine; Referring Provider Emergency Medicine; Visit Provider Internal Medicine
DX: J90 Pleural effusion, not elsewhere classified (principal); J96.01 Acute respiratory failure with hypoxia; U07.1 COVID-19; C79.31 Secondary malignant neoplasm of brain; R18.8 Other ascites; K74.69 Other cirrhosis of liver; C44.42 Squamous cell carcinoma of skin of scalp and neck; K72.10 Chronic hepatic failure without coma; K75.81 Nonalcoholic steatohepatitis (NASH); Z66 Do not resuscitate; Z87.19 Personal history of other diseases of the digestive system
CPT/HCPCS: 32555; 36415; 71045; 71275; 74174; 76705; 80048; 80053; 81001; 83690; 83735; 84484; 85025; 85610; 85730; 87633; 93005; 94640; 94760; 94762; 96374; 96375; 97162; 97165; 97530; 99285; J1171; J1642; J2270; J7613; Q9967

== ENCOUNTER 2024-12-20 20:54 | Emergency (ER) | payer MEDICARE, SELFPAY ==
[2024-10-04 01:32] VITALS: BMI 24.3
[2024-12-20] VITALS (11 sets, daily range): BP systolic 127–153; BP diastolic 64–98; PULSE 77–96; RESP 13–48; TEMP 36.4; O2SAT 93–98; BMI 21.4
[2024-12-20] MEDS: ONDANSETRON 4 MG/2 ML INJ IV (21:24)
--- NOTE | 2024-12-20 21:24 | EKG_ITS ---
[facility] [address] [place] [address] Test Date: 2024-12-20 Pat Name: Lo Aburto Department: [facility] Room: Gender: Female Vp Hr Diversity: TREVOR SAMARIA : 1955 Requested By: Order Number: [id number] Reading MD: Fei Johnson MD Measurements Intervals [place] Rate: 77 P: 72 [place]: 146 QRS: 23 QRSD: 80 T: 32 QT: 402 QTc: 454 Interpretive Statements Normal sinus rhythm ST & T wave abnormality, consider lateral ischemia Electronically Signed On 12-21-2024 13:39:14 PST by Fei Johnson MD
[2024-12-20 21:33] LABS: Add Manual Diff / Slide Review NO; Basophils Absolute Auto 0 /uL (0-100); Basophils Percent Auto 0.4 % (0-2); Eosinophils Absolute Auto 0 /uL (0-450); Eosinophils Percent Auto 0.8 % (2-4); Hematocrit 29.9 % (36-46); Hemoglobin 9.1 g/dL (12.0-16.0); Lymphocytes Absolute Auto 400 /uL (1100-4500); Lymphocytes Percent Auto 6.3 % (25-40); Mean Corpuscular HGB Conc 30.6 % (30-36); Mean Corpuscular Hemoglobin 19.5 PG (26-34); Mean Corpuscular Volume 63.7 fL (80-100); Monocytes Absolute Auto 300 /uL (0-900); Monocytes Percent Auto 4.7 % (3-14); Neutrophils Absolute Auto 5300 /uL (1500-7000); Neutrophils Percent Auto 87.8 % (50-75); Platelet Count 75 X10^3/uL (150-400); Red Blood Cell Count 4.69 X10^6/uL (4.0-5.2); Red Cell Distribution Width 19.3 % (11.6-14.8)
[2024-12-20 21:40] LABS: Alanine Aminotransferase 16 IU/L (<35); Albumin 4.2 g/dL (3.5-5.0); Albumin Globulin Ratio 1.1 (1.0-2.8); Alkaline Phosphatase 76 U/L (38-126); Aspartate Aminotransferase 37 IU/L (14-36); BUN Creatinine Ratio 18.6 (6-22); Bilirubin Total 1.5 mg/dL (0.2-1.3); Blood Urea Nitrogen 11 mg/dL (7-17); Calcium 8.6 mg/dL (8.4-10.2); Carbon Dioxide 18 mmol/L (22-32); Chloride 108 mmol/L (98-107); Estimated Glomerular Filt Rate > 60 mL/min (>60); Globulin 3.9 g/dL (1.7-4.1); Glucose 112 mg/dL (80-110); HEMOLYSIS 33 (0-50); Lipase 87 U/L (23-300); Potassium 4.1 mmol/L (3.4-5.1); Sodium 133 mmol/L (137-145); Total Protein 8.1 g/dL (6.3-8.2)
[2024-12-20] MEDS: METOCLOPRAMIDE 10 MG/2 ML INJ IV ×2 (21:48→23:02)
[2024-12-20] MEDS: HYDROMORPHONE 1 MG INJ IV ×2 (21:48→23:02)
[2024-12-20 21:54] LABS: Anisocytosis 2+; Hypochromasia 1+; Microcytosis 2+; Ovalocytes 1+
--- NOTE | 2024-12-20 22:37 | ED.ABDPAIN ---
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 today, states that she is normally prescribed morphine and Oxy but it did not help, does endorse some nausea but no actual vomiting. She denies any other symptoms such as headache visual disturbances chest pain shortness of breath fever chills or any other GI/ symptoms at this time. Review of records show patient did have paracentesis performed on 10/05/2024 which removed 3700 cc Related Data Home Medications Medication Instructions Recorded Confirmed furosemide 40 mg tablet 40 mg PO DAILY 10/04/24 10/04/24 morphine 15 mg tablet,extended 30 mg PO BEDTIME 10/04/24 10/04/24 release (MS Contin) nadolol 20 mg tablet 20 mg PO DAILY 10/04/24 10/04/24 oxycodone 10 mg tablet 10 mg PO Q4H PRN severe pain 10/04/24 10/04/24 spironolactone 100 mg tablet 100 mg PO DAILY 10/04/24 10/04/24 Previous Rx's Medication Instructions Recorded prochlorperazine 25 mg rectal 25 mg TN Q12H PRN nausea and 06/29/24 suppository vomiting #12 ea prochlorperazine maleate 10 mg 10 mg PO Q8H PRN nausea and 06/29/24 tablet vomiting #14 tabs albuterol sulfate 90 mcg/actuation 1 inh inhalation QID PRN shortness 08/21/24 aerosol inhaler (Ventolin HFA) of breath or wheezing #6.7 grams Allergies Allergy/AdvReac Type Severity Reaction Status Date / Time No Known Allergies Allergy Verified 08/21/24 12:03 Review of Systems Review of Systems Narrative: General: Denies fever, chills, weight loss HEENT: Denies headache, eye drainage, eye irritation, head trauma, sore throat, voice change Cardiovascular: Denies any chest pain, palpitations, shortness of breath, tachycardia Respiratory: Denies any shortness of breath, cough, wheeze, stridor GI/: Positive abdominal pain, nausea, vomiting, denies diarrhea, bright red blood per rectum, melanotic stools, urinary frequency, urinary retention, dysuria, hematuria MSK: Denies any joint pain, muscle pains, swelling Skin: Denies any rashes, lesions, discoloration Neuro: Denies any headache, lightheadedness, dizziness, fainting, weakness Psych: Denies SI/HI Patient History Medical History 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 Upper gastrointestinal hemorrhage Esophageal varices Social History household members: significant other Smoking Status: Never smoker Smoking Status: Never smoker alcohol intake frequency: 0-2 drinks per day Exam Narrative Exam Narrative: General: Cooperative, comfortable, well-developed, not in acute distress HEENT: Normocephalic, atraumatic, PERRLA, normal sclera, eyelids normal, Neck: Active full range of motion, atraumatic Chest: Normal to inspection, negative crepitus, no overlying erythema ecchymosis Respiratory: Normal respiratory effort, not in acute respiratory distress, clear to auscultation bilaterally negative cough, wheeze, tachypnea, rhonchi, rales Cardiology: Regular rate rhythm negative gallop, murmur, rubs GI/: Normal to inspection, soft, nonrigid, mild tenderness to palpation diffuse, negative fluid wave no distention exam deferred MSK: Full range of active range of motion of all 4 extremities, atraumatic Skin: No rashes lesions noted Neuro: Alert awake oriented x3, moves all 4 extremities spontaneously, cranial nerves intact, able to answer all questions appropriately follows commands appropriately Psych: Cooperative, negative suicidal or homicidal ideations Initial Vital Signs Initial Vital Signs: Vital Signs Pulse Rate 86 12/20/24 20:57 Pulse Oximetry 96 12/20/24 20:57 Course Orders Ordered: ED Orders 12/20/24 21:08 EKG-12 Lead Stat 12/20/24 21:18 Complete Blood Count AUTO DIFF Stat Comprehensive Metabolic Panel Stat Lipase Stat 12/20/24 22:40 CT abdomen pelvis w con Stat Ondansetron HCl (Ondansetron 4 Mg/2 Ml Inj) 4 mg IV NOW PRN PRN Reason: Nausea And Vomiting Last Admin: 12/20/24 21:24 Dose: 4 mg Documented By: JAIME Ondansetron HCl (Ondansetron 4 Mg Odt) 4 mg PO NOW PRN PRN Reason: Nausea And Vomiting Discontinued Medications Hydromorphone HCl (Hydromorphone 1 Mg Inj) 1 mg IV NOW ONE Stop: 12/20/24 21:41 Last Admin: 12/20/24 21:48 Dose: 1 mg Documented By: JAIME Hydromorphone HCl (Hydromorphone 1 Mg Inj) 1 mg IV NOW ONE Stop: 12/20/24 22:41 Last Admin: 12/20/24 23:02 Dose: 1 mg Documented By: JAIME Metoclopramide HCl (Metoclopramide 10 Mg/2 Ml Inj) 10 mg IV NOW ONE Stop: 12/20/24 21:41 Last Admin: 12/20/24 21:48 Dose: 10 mg Documented By: JAIME Metoclopramide HCl (Metoclopramide 10 Mg/2 Ml Inj) 10 mg IV NOW ONE Stop: 12/20/24 22:41 Last Admin: 12/20/24 23:02 Dose: 10 mg Documented By: JAIME Vital Signs Vital signs: Vital Signs - 8 hr 12/20/24 20:57 12/20/24 20:58 12/20/24 20:58 Temperature Pulse Rate 86 83 Respiratory Rate Blood Pressure 127/72 Pulse Oximetry 96 98 Oxygen Delivery Method 12/20/24 21:00 12/20/24 21:00 12/20/24 21:01 Temperature 97.5 F L Pulse Rate 89 85 Respiratory Rate 48 H 16 Blood Pressure 128/98 H 127/72 Pulse Oximetry 98 98 Oxygen Delivery Method Room Air Room Air 12/20/24 21:30 12/20/24 21:32 12/20/24 21:32 Temperature Pulse Rate 86 80 Respiratory Rate 38 H 48 H Blood Pressure 129/64 Pulse Oximetry 97 98 Oxygen Delivery Method Room Air Room Air 12/20/24 22:00 12/20/24 22:00 12/20/24 22:30 Temperature Pulse Rate 77 81 Respiratory Rate 18 14 Blood Pressure 132/64 Pulse Oximetry 93 96 Oxygen Delivery Method 12/20/24 22:30 12/20/24 22:57 12/20/24 22:57 Temperature Pulse Rate 96 H Respiratory Rate 13 Blood Pressure 137/70 153/75 H Pulse Oximetry 97 Oxygen Delivery Method Room Air 12/20/24 23:00 12/20/24 23:00 12/20/24 23:30 Temperature Pulse Rate 92 H 90 Respiratory Rate 26 H 18 Blood Pressure 141/67 H Pulse Oximetry 97 94 Oxygen Delivery Method Room Air 12/20/24 23:30 Temperature Pulse Rate Respiratory Rate Blood Pressure 139/69 Pulse Oximetry Oxygen Delivery Method MDM - Abdominal Pain Differential Diagnosis Differential diagnosis: Likely abdominal pain, small bowel obstruction and other (Gastroenteritis, diverticulitis, colitis) Lab Data 12/20/24 21:18 12/20/24 21:18 Labs: Lab Results 12/20/24 Range/Units 21:18 WBC 6.0 (4.5-11.0) X10^3/uL RBC 4.69 (4.0-5.2) X10^6/uL Hgb 9.1 L (12.0-16.0) g/dL Hct 29.9 L (36-46) % MCV 63.7 L (80-100) fL MCH 19.5 L (26-34) PG MCHC 30.6 (30-36) % RDW 19.3 H (11.6-14.8) % Plt Count 75 L (150-400) X10^3/uL Neut % (Auto) 87.8 H (50-75) % Lymph % (Auto) 6.3 L (25-40) % [place] % (Auto) 4.7 (3-14) % Eos % (Auto) 0.8 L (2-4) % Baso % (Auto) 0.4 (0-2) % Neut # (Auto) 5300 (8958-3640) /uL Lymph # (Auto) 400 L (3898-6237) /uL [place] # (Auto) 300 (0-900) /uL Eos # (Auto) 0 (0-450) /uL Baso # (Auto) 0 (0-100) /uL RBC Morphology See below Hypochromasia 1+ H Anisocytosis 2+ H Microcytosis 2+ H Ovalocytes 1+ H Sodium 133 L (137-145) mmol/L Potassium 4.1 (3.4-5.1) mmol/L Chloride 108 H (98-107) mmol/L Carbon Dioxide 18 L (22-32) mmol/L BUN 11 (7-17) mg/dL Creatinine 0.59 (0.52-1.04) mg/dL Estimated GFR > 60 (>60) mL/min BUN/Creatinine Ratio 18.6 (6-22) Glucose 112 H (80-110) mg/dL Calcium 8.6 (8.4-10.2) mg/dL Total Bilirubin 1.5 H (0.2-1.3) mg/dL AST 37 H (14-36) IU/L ALT 16 (<35) IU/L Alkaline Phosphatase 76 (38-126) U/L Total Protein 8.1 (6.3-8.2) g/dL Albumin 4.2 (3.5-5.0) g/dL Globulin 3.9 (1.7-4.1) g/dL Albumin/Globulin Ratio 1.1 (1.0-2.8) Lipase 87 (23-300) U/L Imaging Data CT scan - abdomen/pelvis: Radiologist's Impression: [place] [address] CT Scan Report Signed Patient: Lo Aburto MR#: [id number] : 1955 Acct:[id number] Age/Sex: 69 / F Date of Service: 12/20/24 Loc: ED Accession Number: [id number] Procedure: CT abdomen pelvis w con Ordering Provider: Yonis Yost D.O. PROCEDURE: CT ABDOMEN PELVIS W CON INDICATIONS: abd pain, hx of ERAZO TECHNIQUE: After the administration of intravenous contrast, axial sections acquired from the lung bases to the pubic symphysis. Coronal and sagittal reformats were performed. For radiation dose reduction, the following was used: automated exposure control, adjustment of mA and/or kV according to patient size. COMPARISON: [facility], CT, CT ABDOMEN PELVIS W CON, 06/29/2024, 9:17. [facility], CR, XR CHEST 1V, 10/04/2024, 11:17. [facility], CT, CT ANGIO CHEST ABDOMEN PELVIS, 10/03/2024, 21:51. FINDINGS: Image quality: Diagnostic. Lower Chest: Persistent moderate right effusion, unchanged. ABDOMEN: Liver: Liver appears shrunken and markedly. Unchanged simple hepatic dome cyst. Gallbladder: No radiopaque gallstones or wall thickening. Biliary ducts: No biliary dilation. Pancreas: No ductal dilation. Spleen: Spleen is enlarged measuring 18.1 cm compared to 17.2 cm. Adrenal Glands: No adrenal nodules. Kidneys and Ureters: No hydronephrosis. No solid mass. No complex renal cystic lesion which requires follow up. Stomach and Bowel: Specific appearance thickening within the cecum in addition, marked thickening is present within the distal stomach extending to the pylorus and duodenal C-loop.. Peritoneum: Mild ascites decreased compared to exam. Ventral Wall: No significant ventral hernia. Abdominal Nodes: No retroperitoneal or mesenteric adenopathy by size criteria. Vessels: Aorta and inferior vena cava are normal in size. Numerous varices are present consistent with portal venous hypertension. Previously seen partial thrombus in the portal vein/S in the is unchanged compared to prior exam on 06/29/2024. PELVIS: Pelvic Organs: Unremarkable. Bladder: No bladder wall thickening, accounting for underdistention. Pelvic Nodes: No enlarged lymph nodes. Miscellaneous: No inguinal hernias are seen. Bones: No aggressive osseous abnormality. IMPRESSION: Cirrhotic appearance with portal venous hypertension and mild ascites as above. Nonspecific thickening of the cecum as well as areas of the stomach, pylorus, and duodenal C-loop. This is overall nonspecific in appearance and minimal surrounding inflammation. This could be secondary to scattered ascites versus developing inflammation. Unchanged moderate right effusion. ECG Data Interpretation: EKG interpreted ED physician sinuses 77 beats per minute QTC 454, normal axis, nonspecific ST changes, no STEMI MDM Narrative Medical decision making narrative: 69-year-old female history of Erazo cirrhosis comes into the ED for evaluation of abdominal pain nausea vomiting ongoing persistent since 3:00 a.m. today, states that she does follow up with [facility], states that she does take morphine and oxy but did not have significant improvement of symptoms therefore decided come into the ED for further evaluation treatment. Patient had lab work performed, noted anemia but at baseline, patient had slightly elevated bilirubin but has had history of this previously CT scan without any acute findings chronic appearance of the liver, patient was given multiple doses of antiemetics and Dilaudid with complete resolution of her symptoms, patient was instructed to follow up with her GI and PCP in outpatient setting she verbalized understanding of this agrees to being discharged home with outpatient follow up Discharge Plan Departure Patient Disposition: Home Clinical Impression: Abdominal pain Activity Restrictions/Additional Instructions: Please follow up with GI and primary care Please read the discharge instructions sheet carefully and bring all papers to all doctor follow-up visits, as it may contain information that your doctor may want to see. Disease processes change and evolve, if your symptoms worsen or if you develop any new symptoms that are concerning to you please return for evaluation. Your evaluation today does not show any evidence of any life-threatening/serious illnesses requiring admission to the hospital or surgery. Please follow-up with your doctor for re-evaluation in approximately 1 day. Seek immediate medical attention for any worrisome symptoms. *If you do not have a primary care provider please contact the [facility] Resource line at [phone]. They will ask some questions about your medical history and help get you set up with a doctor in the community. Prescriptions: No Action prochlorperazine maleate 10 mg tablet 10 mg PO Q8H PRN (Reason: nausea and vomiting) Qty: 14 0RF prochlorperazine 25 mg suppository 25 mg TN Q12H PRN (Reason: nausea and vomiting) Qty: 12 0RF morphine [MS Contin] 15 mg tablet extended release 30 mg PO BEDTIME oxycodone 10 mg tablet 10 mg PO Q4H PRN (Reason: severe pain) nadolol 20 mg tablet 20 mg PO DAILY furosemide 40 mg tablet 40 mg PO DAILY spironolactone 100 mg tablet 100 mg PO DAILY albuterol sulfate [Ventolin HFA] 90 mcg/actuation HFA aerosol inhaler 1 inh inhalation QID PRN (Reason: shortness of breath or wheezing) Qty: 6.7 0RF Referrals: Miscellaneous,Doctor, MD [Primary Care Provider] - Stand Alone Forms: Patient Portal/API/Survey
--- NOTE | 2024-12-20 22:40 | DI.CT.S_ITS ---
PROCEDURE: CT ABDOMEN PELVIS W CON INDICATIONS: abd pain, hx of VILLATORO TECHNIQUE: After the administration of intravenous contrast, axial sections acquired from the lung bases to the pubic symphysis. Coronal and sagittal reformats were performed. For radiation dose reduction, the following was used: automated exposure control, adjustment of mA and/or kV according to patient size. COMPARISON: [facility], CT, CT ABDOMEN PELVIS W CON, 06/29/2024, 9:17. [facility], CR, XR CHEST 1V, 10/04/2024, 11:17. [facility], CT, CT ANGIO CHEST ABDOMEN PELVIS, 10/03/2024, 21:51. FINDINGS: Image quality: Diagnostic. Lower Chest: Persistent moderate right effusion, unchanged. ABDOMEN: Liver: Liver appears shrunken and markedly. Unchanged simple hepatic dome cyst. Gallbladder: No radiopaque gallstones or wall thickening. Biliary ducts: No biliary dilation. Pancreas: No ductal dilation. Spleen: Spleen is enlarged measuring 18.1 cm compared to 17.2 cm. Adrenal Glands: No adrenal nodules. Kidneys and Ureters: No hydronephrosis. No solid mass. No complex renal cystic lesion which requires follow up. Stomach and Bowel: Specific appearance thickening within the cecum in addition, marked thickening is present within the distal stomach extending to the pylorus and duodenal C-loop.. Peritoneum: Mild ascites decreased compared to exam. Ventral Wall: No significant ventral hernia. Abdominal Nodes: No retroperitoneal or mesenteric adenopathy by size criteria. Vessels: Aorta and inferior vena cava are normal in size. Numerous varices are present consistent with portal venous hypertension. Previously seen partial thrombus in the portal vein/S in the is unchanged compared to prior exam on 06/29/2024. PELVIS: Pelvic Organs: Unremarkable. Bladder: No bladder wall thickening, accounting for underdistention. Pelvic Nodes: No enlarged lymph nodes. Miscellaneous: No inguinal hernias are seen. Bones: No aggressive osseous abnormality. IMPRESSION: Cirrhotic appearance with portal venous hypertension and mild ascites as above. Nonspecific thickening of the cecum as well as areas of the stomach, pylorus, and duodenal C-loop. This is overall nonspecific in appearance and minimal surrounding inflammation. This could be secondary to scattered ascites versus developing inflammation. Unchanged moderate right effusion. Dictated by: Stormy Lou M.D. on 12/20/2024 at 23:12 Approved by: Stormy Lou M.D. on 12/20/2024 at 23:18
--- NOTE | 2024-12-20 22:48 | PC.NURSE ---
Pt taken to imaging via ED stretcher with diet tech
[2024-12-21] VITALS: BP 131/66; PULSE 87; RESP 24; O2SAT 95
--- NOTE | 2025-02-09 16:09 | PC.NURSE ---
late entry per RN 12/21 IV medication Octreotide was discontinued at discharge at midnight.
== END 2024-12-21 00:41 | disposition home or self-care (01) ==
PROVIDERS: Emergency Provider Student in an Organized Health Care Education/Training Program
DX: R10.9 Unspecified abdominal pain (principal); R11.0 Nausea; Z87.19 Personal history of other diseases of the digestive system
CPT/HCPCS: 36415; 74177; 80053; 83690; 85025; 93005; 93010; 96374; 96375; 96376; 99284; J1171; J2405; J2765; Q9967

== ENCOUNTER 2024-12-21 11:57 | Emergency (ER) | payer MEDICARE, SELFPAY ==
[2024-10-04 01:32] VITALS: BMI 24.3
[2024-12-21] VITALS (24 sets, daily range): BP systolic 115–171; BP diastolic 56–80; PULSE 59–74; RESP 15–34; TEMP 36.6–37.1; O2SAT 91–99; BMI 21.4
[2024-12-21] MEDS: HYDROMORPHONE 0.5 MG INJ IV (12:45)
[2024-12-21] MEDS: METOCLOPRAMIDE 10 MG/2 ML INJ IV (12:46)
[2024-12-21 13:14] LABS: Add Manual Diff / Slide Review NO; Basophils Absolute Auto 0 /uL (0-100); Basophils Percent Auto 0.4 % (0-2); Eosinophils Absolute Auto 0 /uL (0-450); Eosinophils Percent Auto 0.1 % (2-4); Hematocrit 26.6 % (36-46); Hemoglobin 8.2 g/dL (12.0-16.0); Lymphocytes Absolute Auto 400 /uL (1100-4500); Lymphocytes Percent Auto 5.1 % (25-40); Mean Corpuscular HGB Conc 30.9 % (30-36); Mean Corpuscular Hemoglobin 19.6 PG (26-34); Mean Corpuscular Volume 63.5 fL (80-100); Monocytes Absolute Auto 300 /uL (0-900); Monocytes Percent Auto 4.4 % (3-14); Neutrophils Absolute Auto 6300 /uL (1500-7000); Platelet Count 82 X10^3/uL (150-400); Red Blood Cell Count 4.19 X10^6/uL (4.0-5.2); Red Cell Distribution Width 19.6 % (11.6-14.8); White Blood Cell Count 6.9 X10^3/uL (4.5-11.0)
[2024-12-21 13:18] LABS: Alanine Aminotransferase 16 IU/L (<35); Albumin 4.1 g/dL (3.5-5.0); Albumin Globulin Ratio 1.1 (1.0-2.8); Alkaline Phosphatase 66 U/L (38-126); Aspartate Aminotransferase 29 IU/L (14-36); BUN Creatinine Ratio 27.7 (6-22); Bilirubin Total 1.2 mg/dL (0.2-1.3); Blood Urea Nitrogen 18 mg/dL (7-17); Calcium 8.7 mg/dL (8.4-10.2); Carbon Dioxide 20 mmol/L (22-32); Chloride 108 mmol/L (98-107); Estimated Glomerular Filt Rate > 60 mL/min (>60); Globulin 3.6 g/dL (1.7-4.1); Glucose 128 mg/dL (80-110); HEMOLYSIS < 15 (0-50); Lipase 87 U/L (23-300); Sodium 137 mmol/L (137-145); Total Protein 7.7 g/dL (6.3-8.2)
--- NOTE | 2024-12-21 13:28 | ED_ITS ---
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, has had previous GI bleeding and admission to [facility] where she received transfusion and cautery of colonic vessel lesion presents for the 2nd time today with abdominal pain nausea and vomiting. She had blood work and a CT done yesterday got Reglan and Dilaudid and discharged home it does not appear that she got any IV fluids. Presents today with ongoing vomiting and abdominal pain. Reports that she went home and then threw up dark black vomit. Denies any blood in stool or dark stool. She feels weak she is cold generally just not feeling well. 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 She had an EGD on 09/26/2024 which did show portal hypertensive gastropathy a single oozing AVF which was injected with cautery Related Data Home Medications Medication Instructions Recorded Confirmed furosemide 40 mg tablet 40 mg PO DAILY 10/04/24 10/04/24 morphine 15 mg tablet,extended 30 mg PO BEDTIME 10/04/24 10/04/24 release (MS Contin) nadolol 20 mg tablet 20 mg PO DAILY 10/04/24 10/04/24 oxycodone 10 mg tablet 10 mg PO Q4H PRN severe pain 10/04/24 10/04/24 spironolactone 100 mg tablet 100 mg PO DAILY 10/04/24 10/04/24 Previous Rx's Medication Instructions Recorded prochlorperazine 25 mg rectal 25 mg MA Q12H PRN nausea and 06/29/24 suppository vomiting #12 ea prochlorperazine maleate 10 mg 10 mg PO Q8H PRN nausea and 06/29/24 tablet vomiting #14 tabs albuterol sulfate 90 mcg/actuation 1 inh inhalation QID PRN shortness 08/21/24 aerosol inhaler (Ventolin HFA) of breath or wheezing #6.7 grams Allergies Allergy/AdvReac Type Severity Reaction Status Date / Time No Known Allergies Allergy Verified 08/21/24 12:03 Patient History Medical History Squamous cell carcinoma of head and neck 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 Upper gastrointestinal hemorrhage Esophageal varices Social History household members: significant other Smoking Status: Former smoker Smoking Status: Former smoker alcohol intake frequency: 0-2 drinks per day Exam Initial Vital Signs Initial Vital Signs: Vital Signs Temperature 98.4 F 12/21/24 12:12 Pulse Rate 68 12/21/24 12:12 Respiratory Rate 26 H 12/21/24 12:12 Blood Pressure 147/80 H 12/21/24 12:12 Pulse Oximetry 99 12/21/24 12:12 Oxygen Delivery Method Room Air 12/21/24 12:12 GENERAL: Alert slightly pale 69-year-old female appears older than stated age HEENT: Head atraumatic,EOMI, pupils reactive, face symmetric, moist mucous membranes CARDIOVASCULAR: Regular rate and rhythm without murmurs, rubs or gallops. RESPIRATORY: Breath sounds equal bilaterally, no wheezes rales or rhonchi. ABDOMEN: Soft, nontender. Normoactive bowel sounds all 4 quadrants. No guarding or rebound. RECTAL: Hemoccult negative no hemorrhoids nontender : No CVA tenderness EXTREMITIES: Normal range of motion, no clubbing or edema. Neurovascularly intact NEUROLOGICAL: Alert and oriented x4.Normal gait and speech. Cranial nerves II through XII grossly intact. SKIN: Warm, dry, no laceration, no petechiae, no rashes or lesions. Course Orders Ordered: ED Orders 12/21/24 12:45 CBC Auto Diff [Complete Blood Count AUTO DIFF] Stat CMP [Comprehensive Metabolic Panel] Stat Lipase Stat PT [Prothrombin Time INR] Stat PTT Partial Thromboplastin Jones Stat 12/21/24 14:05 PRBC [Packed Cells] Stat Type and Screen Stat 12/21/24 15:10 Hemoglobin and Hematocrit Stat Octreotide Acetate 500 mcg/ (Sodium Chloride) 101 mls @ 5.05 mls/hr IV CONT AMIRAH; Protocol Last Admin: 12/21/24 17:18 Dose: 25 mcg/hr, 5.05 mls/hr Documented By: Discontinued Medications Hydromorphone HCl (Hydromorphone 0.5 Mg Inj) 0.5 mg IV NOW ONE Stop: 12/21/24 12:23 Last Admin: 12/21/24 12:45 Dose: 0.5 mg Documented By: Hydromorphone HCl (Hydromorphone 1 Mg Inj) 1 mg IV NOW ONE Stop: 12/21/24 13:39 Last Admin: 12/21/24 13:55 Dose: 1 mg Documented By: Hydromorphone HCl (Hydromorphone 1 Mg Inj) 1 mg IV NOW ONE Stop: 12/21/24 16:16 Last Admin: 12/21/24 16:28 Dose: 1 mg Documented By: JHONATAN Ceftriaxone Sodium 1,000 mg/ (Sodium Chloride) 100 mls @ 200 mls/hr IV NOW ONE Stop: 12/21/24 16:56 Last Infusion: 12/21/24 18:09 Dose: Infused Documented By: Admin: 12/21/24 17:05 Dose: 200 mls/hr Documented By: Metoclopramide HCl (Metoclopramide 10 Mg/2 Ml Inj) 10 mg IV NOW ONE Stop: 12/21/24 12:23 Last Admin: 12/21/24 12:46 Dose: 10 mg Documented By: Octreotide Acetate (Octreotide 100 Mcg/Ml Vial) 50 mcg IV NOW ONE Stop: 12/21/24 16:56 Last Admin: 12/21/24 17:17 Dose: 50 mcg Documented By: Ondansetron HCl (Ondansetron 4 Mg/2 Ml Inj) 4 mg IV NOW ONE Stop: 12/21/24 16:16 Last Admin: 12/21/24 16:28 Dose: 4 mg Documented By: JHONATAN Pantoprazole Sodium (Pantoprazole 40 Mg Vial) 80 mg IV NOW ONE Stop: 12/21/24 13:39 Last Admin: 12/21/24 13:55 Dose: 80 mg Documented By: Vital Signs Vital signs: Vital Signs - 8 hr 12/21/24 12:12 12/21/24 12:48 12/21/24 12:49 Temperature 98.4 F Pulse Rate 68 64 65 Respiratory Rate 26 H Blood Pressure 147/80 H Pulse Oximetry 99 99 99 Oxygen Delivery Method Room Air 12/21/24 12:49 12/21/24 13:00 12/21/24 13:00 Temperature Pulse Rate 63 Respiratory Rate 19 Blood Pressure 171/77 H 153/74 H Pulse Oximetry 97 Oxygen Delivery Method Room Air 12/21/24 13:30 12/21/24 13:30 12/21/24 14:00 Temperature Pulse Rate 66 Respiratory Rate 22 Blood Pressure 150/73 H 153/75 H Pulse Oximetry 97 Oxygen Delivery Method 12/21/24 14:00 12/21/24 14:30 12/21/24 14:30 Temperature Pulse Rate 70 67 Respiratory Rate 23 32 H Blood Pressure 128/68 Pulse Oximetry 98 95 Oxygen Delivery Method 12/21/24 15:00 12/21/24 15:00 12/21/24 15:30 Temperature Pulse Rate 68 71 Respiratory Rate 21 22 Blood Pressure 137/69 Pulse Oximetry 96 96 Oxygen Delivery Method 12/21/24 15:30 12/21/24 16:00 12/21/24 16:00 Temperature Pulse Rate 63 Respiratory Rate 24 Blood Pressure 131/73 145/70 H Pulse Oximetry 98 Oxygen Delivery Method 12/21/24 16:03 12/21/24 16:03 12/21/24 16:03 Temperature 97.9 F Pulse Rate 64 64 Respiratory Rate 21 25 H Blood Pressure 143/74 H 143/74 H Pulse Oximetry 98 Oxygen Delivery Method 12/21/24 16:15 12/21/24 16:21 12/21/24 16:22 Temperature 98.7 F Pulse Rate 69 66 66 Respiratory Rate 21 19 20 Blood Pressure 148/75 H Pulse Oximetry 98 98 Oxygen Delivery Method 12/21/24 16:22 12/21/24 16:23 12/21/24 16:30 Temperature 98.6 F Pulse Rate 73 66 Respiratory Rate 18 19 Blood Pressure 148/75 H 138/75 Pulse Oximetry 98 Oxygen Delivery Method 12/21/24 16:30 12/21/24 16:37 12/21/24 16:37 Temperature Pulse Rate 74 Respiratory Rate 20 Blood Pressure 149/75 H 138/75 Pulse Oximetry 98 Oxygen Delivery Method 12/21/24 16:45 12/21/24 16:45 12/21/24 17:00 Temperature Pulse Rate 72 Respiratory Rate 18 Blood Pressure 131/72 121/62 Pulse Oximetry 97 Oxygen Delivery Method Room Air 12/21/24 17:00 12/21/24 17:15 12/21/24 17:15 Temperature Pulse Rate 74 65 Respiratory Rate 34 H 20 Blood Pressure 129/70 Pulse Oximetry 97 97 Oxygen Delivery Method 12/21/24 17:30 12/21/24 17:30 12/21/24 17:45 Temperature 98.6 F Pulse Rate 63 59 L Respiratory Rate 15 19 Blood Pressure 133/71 Pulse Oximetry 98 96 Oxygen Delivery Method Room Air 12/21/24 17:45 12/21/24 18:00 12/21/24 18:00 Temperature Pulse Rate 64 Respiratory Rate 15 Blood Pressure 140/67 139/72 Pulse Oximetry 94 Oxygen Delivery Method 12/21/24 18:15 12/21/24 18:15 Temperature Pulse Rate 69 Respiratory Rate 18 Blood Pressure 115/56 L Pulse Oximetry 91 Oxygen Delivery Method Room Air MDM - Nausea/Vomiting/Diarrhea Lab Data 12/21/24 15:10 12/21/24 12:45 Labs: Lab Results 12/21/24 12/21/24 12/21/24 Range/Units 12:45 14:05 15:10 WBC 6.9 (4.5-11.0) X10^3/uL RBC 4.19 (4.0-5.2) X10^6/uL Hgb 8.2 L 7.7 L (12.0-16.0) g/dL Hct 26.6 L 24.9 L (36-46) % MCV 63.5 L (80-100) fL MCH 19.6 L (26-34) PG MCHC 30.9 (30-36) % RDW 19.6 H (11.6-14.8) % Plt Count 82 L (150-400) X10^3/uL Neut % (Auto) 90.0 H (50-75) % Lymph % (Auto) 5.1 L (25-40) % [place] % (Auto) 4.4 (3-14) % Eos % (Auto) 0.1 L (2-4) % Baso % (Auto) 0.4 (0-2) % Neut # (Auto) 6300 (4374-7874) /uL Lymph # (Auto) 400 L (2621-5823) /uL [place] # (Auto) 300 (0-900) /uL Eos # (Auto) 0 (0-450) /uL Baso # (Auto) 0 (0-100) /uL RBC Morphology See below Anisocytosis 1+ H Microcytosis 1+ H PT 17.2 H (9.4-12.5) SECONDS INR 1.5 H (0.9-1.3) APTT 32 (25.1-36.5) SECONDS Sodium 137 (137-145) mmol/L Potassium 4.0 (3.4-5.1) mmol/L Chloride 108 H (98-107) mmol/L Carbon Dioxide 20 L (22-32) mmol/L BUN 18 H (7-17) mg/dL Creatinine 0.65 (0.52-1.04) mg/dL Estimated GFR > 60 (>60) mL/min BUN/Creatinine Ratio 27.7 H (6-22) Glucose 128 H (80-110) mg/dL Calcium 8.7 (8.4-10.2) mg/dL Total Bilirubin 1.2 (0.2-1.3) mg/dL AST 29 (14-36) IU/L ALT 16 (<35) IU/L Alkaline Phosphatase 66 (38-126) U/L Total Protein 7.7 (6.3-8.2) g/dL Albumin 4.1 (3.5-5.0) g/dL Globulin 3.6 (1.7-4.1) g/dL Albumin/Globulin Ratio 1.1 (1.0-2.8) Lipase 87 (23-300) U/L Blood Type A Negative Antibody Screen Negative Crossmatch See Detail Imaging Data CT scan - abdomen/pelvis: Radiologist's Impression: PROCEDURE: CT ABDOMEN PELVIS W CON INDICATIONS: abd pain, hx of VILLATORO TECHNIQUE: After the administration of intravenous contrast, axial sections acquired from the lung bases to the pubic symphysis. Coronal and sagittal reformats were performed. For radiation dose reduction, the following was used: automated exposure control, adjustment of mA and/or kV according to patient size. COMPARISON: [facility], CT, CT ABDOMEN PELVIS W CON, 06/29/2024, 9:17. [facility], CR, XR CHEST 1V, 10/04/2024, 11:17. [facility], CT, CT ANGIO CHEST ABDOMEN PELVIS, 10/03/2024, 21:51. FINDINGS: Image quality: Diagnostic. Lower Chest: Persistent moderate right effusion, unchanged. ABDOMEN: Liver: Liver appears shrunken and markedly. Unchanged simple hepatic dome cyst. Gallbladder: No radiopaque gallstones or wall thickening. Biliary ducts: No biliary dilation. Pancreas: No ductal dilation. Spleen: Spleen is enlarged measuring 18.1 cm compared to 17.2 cm. Adrenal Glands: No adrenal nodules. Kidneys and Ureters: No hydronephrosis. No solid mass. No complex renal cystic lesion which requires follow up. Stomach and Bowel: Specific appearance thickening within the cecum in addition, marked thickening is present within the distal stomach extending to the pylorus and duodenal C-loop.. Peritoneum: Mild ascites decreased compared to exam. Ventral Wall: No significant ventral hernia. Abdominal Nodes: No retroperitoneal or mesenteric adenopathy by size criteria. Vessels: Aorta and inferior vena cava are normal in size. Numerous varices are present consistent with portal venous hypertension. Previously seen partial thrombus in the portal vein/S in the is unchanged compared to prior exam on 06/29/2024. PELVIS: Pelvic Organs: Unremarkable. Bladder: No bladder wall thickening, accounting for underdistention. Pelvic Nodes: No enlarged lymph nodes. Miscellaneous: No inguinal hernias are seen. Bones: No aggressive osseous abnormality. IMPRESSION: Cirrhotic appearance with portal venous hypertension and mild ascites as above. Nonspecific thickening of the cecum as well as areas of the stomach, pylorus, and duodenal C-loop. This is overall nonspecific in appearance and minimal surrounding inflammation. This could be secondary to scattered ascites versus developing inflammation. Unchanged moderate right effusion. Dictated by: Stormy Lou M.D. 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 Pertinent findings: Hb/Hct 9.1/29.9--> 8.2/26.6-->7.7/24.9 CBC: Shows anemia with down trending numbers WBC is 6.9 platelets 82 which appear stable CMP sodium 137 potassium 4.0 chloride 108 carbon dioxide 20 BUN 18 creatinine 0.6 Bilirubin 1.2 AST 29 ALT 16 alk-phos 66 lipase 87 Independently reviewed EKG as above sinus rhythm no ischemia Imaging studies independently reviewed: CT abdomen pelvis from last night does show portal venous hypertension with mild ascites no active bleeding no repeat imaging today Consultations: 1430 Dr. Bernabe recommends transfer to higher level of care 1516 Dr. Eduardo PIMENTEL at [facility] agrees with transfer recommends admission to hospitalist. Does not think this is esophageal variceal bleed agrees with Protonix only Dr. Connelly, hospitalist updated on symptoms test results does recommend some Rocephin and an octreotide drip Treatments: Protonix 80 mg, octreotide, Dilaudid, Reglan 1PRBC Re-evaluations: Patient remains stable does appear slightly pale however she has not had any further hematemesis no rectal bleeding Discussion: Patient is a 69-year-old female with complicated history of nonalcoholic cirrhosis she does have recent duodenal AVM which was repaired at [facility]. She does have wrong history of esophageal varices does not appear that she has had an esophageal variceal bleed. I have a low suspicion that this is an esophageal variceal bleed. She he has had no further hematemesis here. She is guaiac negative. She does significant drop in her hemoglobin and hematocrit since last evening. It was 9.1 in his now 7.7. She did not receive any IV fluids last visit or this visit so I have low suspicion that this is dilution. Due for to her ongoing drop in hemoglobin I have given her 1 unit of packed red blood cells. Discharge Plan Departure Patient Disposition: [facility] Clinical Impression: Acute GI bleeding Prescriptions: No Action prochlorperazine maleate 10 mg tablet 10 mg PO Q8H PRN (Reason: nausea and vomiting) Qty: 14 0RF prochlorperazine 25 mg suppository 25 mg MA Q12H PRN (Reason: nausea and vomiting) Qty: 12 0RF morphine [MS Contin] 15 mg tablet extended release 30 mg PO BEDTIME oxycodone 10 mg tablet 10 mg PO Q4H PRN (Reason: severe pain) nadolol 20 mg tablet 20 mg PO DAILY furosemide 40 mg tablet 40 mg PO DAILY spironolactone 100 mg tablet 100 mg PO DAILY albuterol sulfate [Ventolin HFA] 90 mcg/actuation HFA aerosol inhaler 1 inh inhalation QID PRN (Reason: shortness of breath or wheezing) Qty: 6.7 0RF Referrals: Miscellaneous,Doctor, MD [Primary Care Provider] -
[2024-12-21] MEDS: PANTOPRAZOLE 40 MG VIAL 80 MG IV (13:55)
[2024-12-21] MEDS: HYDROMORPHONE 1 MG INJ IV ×2 (13:55→16:28)
[2024-12-21 14:01] LABS: Anisocytosis 1+; Microcytosis 1+
[2024-12-21 14:30] LABS: INR 1.5 (0.9-1.3); Prothrombin Time 17.2 SECONDS (9.4-12.5)
[2024-12-21 14:33] LABS: PTT Partial Thromboplastin Tim 32 SECONDS (25.1-36.5)
[2024-12-21 15:26] LABS: Hematocrit 24.9 % (36-46); Hemoglobin 7.7 g/dL (12.0-16.0)
--- NOTE | 2024-12-21 16:27 | PC.NURSE ---
This RN placed right ac 20g IV to administer medications to the patient while blood transfusion is occurring.
[2024-12-21] MEDS: ONDANSETRON 4 MG/2 ML INJ IV (16:28)
[2024-12-21] MEDS: cefTRIAXone 1,000 MG in SODIUM CHLORIDE 0.9% 100 ML 200 MG IV (17:05)
[2024-12-21] MEDS: OCTREOTIDE 100 MCG/ML VIAL 50 MCG IV (17:17)
[2024-12-21] MEDS: OCTREOTIDE 500 MCG in SODIUM CHLORIDE 0.9% 100 ML 5.05 MCG IV (17:18)
--- NOTE | 2025-02-19 12:14 | PC.NURSE ---
Late Entry: Octreotide infusing at time of transfer to higher level of care @1855. care transferred to transport team.
== END 2024-12-21 18:55 | disposition short-term general hospital (02) ==
PROVIDERS: Emergency Provider Emergency Medicine
DX: K92.2 Gastrointestinal hemorrhage, unspecified (principal); R11.2 Nausea with vomiting, unspecified; C79.31 Secondary malignant neoplasm of brain; Z87.19 Personal history of other diseases of the digestive system
CPT/HCPCS: 36415; 36430; 80053; 83690; 85014; 85018; 85025; 85610; 85730; 86850; 86900; 86901; 96365; 96367; 96375; 96376; 99284; P9016; J0696; J1171; J2354; J2405; J2470; J2765

== ENCOUNTER 2024-12-26 09:25 | Emergency (ER) | payer MEDICARE, SELFPAY ==
[2024-10-04 01:32] VITALS: BMI 24.3
[2024-12-26] VITALS (9 sets, daily range): BP systolic 122–143; BP diastolic 66–73; PULSE 68–86; RESP 12–31; TEMP 36.9; O2SAT 93–99; BMI 20.3
--- NOTE | 2024-12-26 09:38 | ED.ABDPAIN ---
HPI - Abdominal Pain General Chief Complaint: Abdominal Pain Stated Complaint: ABD Px and N/V Time Seen by Provider: 12/26/24 09:31 History of Present Illness HPI narrative: 69-year-old female with history VILLATORO liver cirrhosis with ascites, invasive squamous cell jaw cancer (reportedly nonoperative - followed by [facility]) presents by EMS from home for nausea, vomiting, central abdominal pain. This is patient's 3rd visit since 12/20. Patient was initially seen for abdominal pains on 12/20 at [facility] -at that time laboratory work was consistent with the patient's baseline, she had a CT scan that showed some thickening of the stomach. She was discharged with instructions to follow up with her GI team. Patient returned to [facility] on 12/21 for continued symptoms and reports of vomiting dark blood. At that time patient had a downtrend in her hemoglobin. She was given octreotide, Reglan, Rocephin, Protonix and transferred to [facility] for GI evaluation. Patient was discharged home on 12/23. Patient states that this morning she woke up with nausea. She took Zofran without significant relief. Related Data Home Medications Medication Instructions Recorded Confirmed furosemide 40 mg tablet 40 mg PO DAILY 10/04/24 10/04/24 morphine 15 mg tablet,extended 30 mg PO BEDTIME 10/04/24 10/04/24 release (MS Contin) nadolol 20 mg tablet 20 mg PO DAILY 10/04/24 10/04/24 oxycodone 10 mg tablet 10 mg PO Q4H PRN severe pain 10/04/24 10/04/24 spironolactone 100 mg tablet 100 mg PO DAILY 10/04/24 10/04/24 Previous Rx's Medication Instructions Recorded prochlorperazine 25 mg rectal 25 mg NH Q12H PRN nausea and 06/29/24 suppository vomiting #12 ea prochlorperazine maleate 10 mg 10 mg PO Q8H PRN nausea and 06/29/24 tablet vomiting #14 tabs albuterol sulfate 90 mcg/actuation 1 inh inhalation QID PRN shortness 08/21/24 aerosol inhaler (Ventolin HFA) of breath or wheezing #6.7 grams metoclopramide HCl 10 mg tablet 10 mg PO Q6H PRN nausea and 12/26/24 vomiting #30 tabs Allergies Allergy/AdvReac Type Severity Reaction Status Date / Time No Known Allergies Allergy Verified 12/26/24 09:35 Patient History Medical History Squamous cell carcinoma of head and neck 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 Upper gastrointestinal hemorrhage Esophageal varices Social History household members: significant other Smoking Status: Former smoker Smoking Status: Former smoker alcohol intake frequency: 0-2 drinks per day Exam Initial Vital Signs Initial Vital Signs: Vital Signs Pulse Oximetry 97 12/26/24 09:29 Const: Awake, alert, appears chronically unwell, frail, older than stated age Cardiac: regular rate, regular rhythm RESP: unlabored, clear bilaterally, no wheezing GI: Soft, generalized tenderness to deep palpation without rebound or guarding Skin: Warm, Dry, intact, pale Neuro: AO x3, CN II-XII grossly intact, moves all extremities Course Orders Ordered: ED Orders 12/26/24 09:50 CBC Auto Diff [Complete Blood Count AUTO DIFF] Stat CMP [Comprehensive Metabolic Panel] Stat Lactate (Lactic Acid) Stat Lipase Stat PT [Prothrombin Time INR] Stat Heparin Sodium (Porcine) (Heparin 500 Unit/5 Ml Port Flush) 500 unit IV PRN PRN PRN Reason: Flush Last Admin: 12/26/24 12:36 Dose: 500 unit Documented By: ABRAHAM Discontinued Medications Al Hydrox/Mg Hydrox/Simethicone (Mag Hydrox/Alum/Simeth 30 Ml Udc) 30 ml PO NOW ONE Stop: 12/26/24 10:51 Last Admin: 12/26/24 11:22 Dose: 30 ml Documented By: SPF Hydromorphone HCl (Hydromorphone 1 Mg Inj) 1 mg IV NOW ONE Stop: 12/26/24 10:05 Last Admin: 12/26/24 10:09 Dose: 1 mg Documented By: SPF Sodium Chloride (Normal Saline 0.9%) 1,000 mls @ 1,000 mls/hr IV BOLUS ONE Stop: 12/26/24 10:36 Last Infusion: 12/26/24 11:22 Dose: Infused Documented By: Admin: 12/26/24 09:46 Dose: 1,000 mls/hr Documented By: MLWinnie Lidocaine HCl (Lidocaine Viscous 2% 15 Ml Solution) 15 ml PO NOW ONE Stop: 12/26/24 10:51 Last Admin: 12/26/24 11:22 Dose: 15 ml Documented By: TR Metoclopramide HCl (Metoclopramide 10 Mg/2 Ml Inj) 10 mg IV NOW ONE Stop: 12/26/24 09:38 Last Admin: 12/26/24 09:46 Dose: 10 mg Documented By: ABRAHAM Sucralfate (Sucralfate 1 Gm/10 Ml Oral Susp) 1 gm PO NOW ONE Stop: 12/26/24 10:52 Last Admin: 12/26/24 11:22 Dose: 1 gm Documented By: TR Vital Signs Vital signs: Vital Signs - 8 hr 12/26/24 09:29 12/26/24 09:30 12/26/24 09:30 Temperature Pulse Rate 71 Respiratory Rate Blood Pressure 143/67 H Pulse Oximetry 97 98 Oxygen Delivery Method Room Air 12/26/24 09:35 12/26/24 10:00 12/26/24 10:30 Temperature 98.4 F Pulse Rate 72 68 Respiratory Rate 18 30 H Blood Pressure 143/67 H 143/66 H Pulse Oximetry 98 99 Oxygen Delivery Method Room Air 12/26/24 10:30 12/26/24 11:00 12/26/24 11:00 Temperature Pulse Rate 75 83 Respiratory Rate 12 15 Blood Pressure 136/66 Pulse Oximetry 93 97 Oxygen Delivery Method Room Air 12/26/24 11:30 12/26/24 11:30 12/26/24 12:00 Temperature Pulse Rate 86 Respiratory Rate 31 H Blood Pressure 124/73 122/66 Pulse Oximetry 97 Oxygen Delivery Method 12/26/24 12:00 12/26/24 12:30 12/26/24 12:30 Temperature Pulse Rate 76 79 Respiratory Rate 28 H 23 Blood Pressure 138/70 Pulse Oximetry 96 Oxygen Delivery Method MDM - Abdominal Pain Differential Diagnosis Differential diagnosis: Likely abdominal pain, pancreatitis and other (Gastritis) Lab Data 12/26/24 09:50 12/26/24 09:50 Labs: Lab Results 12/26/24 Range/Units 09:50 WBC 6.0 (4.5-11.0) X10^3/uL RBC 4.49 (4.0-5.2) X10^6/uL Hgb 9.0 L (12.0-16.0) g/dL Hct 28.8 L (36-46) % MCV 64.2 L (80-100) fL MCH 20.0 L (26-34) PG MCHC 31.2 (30-36) % RDW 21.0 H (11.6-14.8) % Plt Count 68 L (150-400) X10^3/uL Neut % (Auto) 86.4 H (50-75) % Lymph % (Auto) 6.3 L (25-40) % [place] % (Auto) 5.2 (3-14) % Eos % (Auto) 1.1 L (2-4) % Baso % (Auto) 1.0 (0-2) % Neut # (Auto) 5200 (2699-0278) /uL Lymph # (Auto) 400 L (3605-9792) /uL [place] # (Auto) 300 (0-900) /uL Eos # (Auto) 100 (0-450) /uL Baso # (Auto) 100 (0-100) /uL RBC Morphology See below Anisocytosis 3+ H D Microcytosis 1+ H Tear Drop Cells 1+ H Ovalocytes 1+ H Acanthocytes (Spur) 1+ H PT 16.7 H (9.4-12.5) SECONDS INR 1.5 H (0.9-1.3) Sodium 138 (137-145) mmol/L Potassium 3.7 (3.4-5.1) mmol/L Chloride 109 H (98-107) mmol/L Carbon Dioxide 21 L (22-32) mmol/L BUN 10 (7-17) mg/dL Creatinine 0.57 (0.52-1.04) mg/dL Estimated GFR > 60 (>60) mL/min BUN/Creatinine Ratio 17.5 (6-22) Glucose 124 H (80-110) mg/dL Lactate 1.3 (0.7-2.1) mmol/L Calcium 8.4 (8.4-10.2) mg/dL Total Bilirubin 1.3 (0.2-1.3) mg/dL AST 31 (14-36) IU/L ALT 16 (<35) IU/L Alkaline Phosphatase 64 (38-126) U/L Total Protein 7.6 (6.3-8.2) g/dL Albumin 4.0 (3.5-5.0) g/dL Globulin 3.6 (1.7-4.1) g/dL Albumin/Globulin Ratio 1.1 (1.0-2.8) Lipase 152 D (23-300) U/L MDM Narrative Medical decision making narrative: Nausea, vomiting, abdominal pain. Patient seen multiple times for same, recently transfer to [facility] for GI evaluation and endoscopy. Abdomen soft, patient states that her primary concern today is the nausea. She says that Zofran does not seem to be helping and the only thing that helps her consistently is Reglan. IV Reglan ordered. Laboratory work ordered. Records requested from [facility] for review. Laboratory work reviewed, hemoglobin 9.0, up from 7.7 at transfer. Electrolytes within normal limits, creatinine 0.57, normal liver enzymes. Patient feeling improved after Reglan and pain medications. Records from [facility] show that patient has very severe gastritis, however there was no active bleeding seen on EGD. Patient has already been prescribed Protonix and other medications for gastritis. With improving hemoglobin and no peritoneal signs on exam no indication for repeat imaging at this time. Patient's last CT from 12/20. Patient was able to tolerate p.o. patient counseled on lab and imaging findings. She requested that Reglan be prescribed, and it was sent to the pharmacy of choice. She was counseled to continue to make diet changes as previously instructed at [facility] and to follow all medications prescribed from her previous discharge. ED return precautions discussed. Discharge Plan Departure Patient Disposition: Home Clinical Impression: Gastritis, Nausea & vomiting Instructions: DI for Gastritis Activity Restrictions/Additional Instructions: Your EGD from [facility] showed that you have pretty significant gastritis. Continue to take the medicines prescribed to you at your discharge. The nausea medication Reglan has also been sent to your pharmacy. Continue to make the previously recommended diet changes. Follow up with your housekeeping associate. Prescriptions: New metoclopramide HCl 10 mg tablet 10 mg PO Q6H PRN (Reason: nausea and vomiting) Qty: 30 0RF No Action prochlorperazine maleate 10 mg tablet 10 mg PO Q8H PRN (Reason: nausea and vomiting) Qty: 14 0RF prochlorperazine 25 mg suppository 25 mg NH Q12H PRN (Reason: nausea and vomiting) Qty: 12 0RF morphine [MS Contin] 15 mg tablet extended release 30 mg PO BEDTIME oxycodone 10 mg tablet 10 mg PO Q4H PRN (Reason: severe pain) nadolol 20 mg tablet 20 mg PO DAILY furosemide 40 mg tablet 40 mg PO DAILY spironolactone 100 mg tablet 100 mg PO DAILY albuterol sulfate [Ventolin HFA] 90 mcg/actuation HFA aerosol inhaler 1 inh inhalation QID PRN (Reason: shortness of breath or wheezing) Qty: 6.7 0RF Referrals: Miscellaneous,Doctor, MD [Primary Care Provider] - Stand Alone Forms: Patient Portal/API/Survey
[2024-12-26] MEDS: METOCLOPRAMIDE 10 MG/2 ML INJ IV (09:46)
[2024-12-26] MEDS: SODIUM CHLORIDE 0.9% 1,000 ML 1000 ML IV (09:46)
--- NOTE | 2024-12-26 09:48 | PC.NURSE ---
MEDICAL RECORDS FROM [facility] ED VISIT ON 12/24/24 WERE REQUESTED THROUGH [facility] REQUEST AT [facility], SPOKE WITH SYLWIA AT [phone]
[2024-12-26 10:02] LABS: Add Manual Diff / Slide Review NO; Basophils Absolute Auto 100 /uL (0-100); Eosinophils Absolute Auto 100 /uL (0-450); Eosinophils Percent Auto 1.1 % (2-4); Hematocrit 28.8 % (36-46); Lymphocytes Absolute Auto 400 /uL (1100-4500); Lymphocytes Percent Auto 6.3 % (25-40); Mean Corpuscular HGB Conc 31.2 % (30-36); Mean Corpuscular Volume 64.2 fL (80-100); Monocytes Absolute Auto 300 /uL (0-900); Monocytes Percent Auto 5.2 % (3-14); Neutrophils Absolute Auto 5200 /uL (1500-7000); Neutrophils Percent Auto 86.4 % (50-75); Platelet Count 68 X10^3/uL (150-400); Red Blood Cell Count 4.49 X10^6/uL (4.0-5.2)
[2024-12-26 10:09] LABS: INR 1.5 (0.9-1.3); Prothrombin Time 16.7 SECONDS (9.4-12.5)
[2024-12-26] MEDS: HYDROMORPHONE 1 MG INJ IV (10:09)
[2024-12-26 10:13] LABS: Alanine Aminotransferase 16 IU/L (<35); Albumin Globulin Ratio 1.1 (1.0-2.8); Alkaline Phosphatase 64 U/L (38-126); Aspartate Aminotransferase 31 IU/L (14-36); BUN Creatinine Ratio 17.5 (6-22); Bilirubin Total 1.3 mg/dL (0.2-1.3); Blood Urea Nitrogen 10 mg/dL (7-17); Calcium 8.4 mg/dL (8.4-10.2); Carbon Dioxide 21 mmol/L (22-32); Chloride 109 mmol/L (98-107); Estimated Glomerular Filt Rate > 60 mL/min (>60); Globulin 3.6 g/dL (1.7-4.1); Glucose 124 mg/dL (80-110); HEMOLYSIS < 15 (0-50); Lactate (Lactic Acid) 1.3 mmol/L (0.7-2.1); Lipase 152 U/L (23-300); Potassium 3.7 mmol/L (3.4-5.1); Sodium 138 mmol/L (137-145); Total Protein 7.6 g/dL (6.3-8.2)
[2024-12-26 10:35] LABS: Anisocytosis 3+; Microcytosis 1+
[2024-12-26 10:36] LABS: Acanthocytes 1+; Ovalocytes 1+; Tear Drop Cells 1+
[2024-12-26] MEDS: MAG HYDROX/ALUM/SIMETH 30 ML UDC PO (11:22)
[2024-12-26] MEDS: SUCRALFATE 1 GM/10 ML ORAL SUSP PO (11:22)
[2024-12-26] MEDS: LIDOCAINE VISCOUS 2% 15 ML SOLUTION PO (11:22)
== END 2024-12-26 13:18 | disposition home or self-care (01) ==
PROVIDERS: Emergency Provider Emergency Medicine
DX: K29.70 Gastritis, unspecified, without bleeding (principal); R11.2 Nausea with vomiting, unspecified; R10.9 Unspecified abdominal pain; C44.329 Squamous cell carcinoma of skin of other parts of face; K70.31 Alcoholic cirrhosis of liver with ascites
CPT/HCPCS: 36415; 80053; 83605; 83690; 85025; 85610; 96361; 96374; 96375; 99284; J1171; J1642; J2765

== ENCOUNTER 2025-01-29 17:09 | Emergency (ER) | payer MEDICARE, SELFPAY ==
[2024-10-04 01:32] VITALS: BMI 24.3
[2025-01-29] VITALS (13 sets, daily range): BP systolic 105–130; BP diastolic 56–78; PULSE 96–106; RESP 18; TEMP 36.6; O2SAT 91–94; BMI 20.2
--- NOTE | 2025-01-29 18:25 | DI.CT.S_ITS ---
PROCEDURE: CT SOFT TISSUE NECK W CON INDICATIONS: history of squamous cell cancer, significant parotid gland TECHNIQUE: After the administration of intravenous contrast, 3.0 mm axial sections acquired from the sella to the aortic arch. Additional oblique axial 3.0 mm sections acquired through the pharynx. 3 mm thick coronal and sagittal reformats were generated. For radiation dose reduction, the following was used: automated exposure control. COMPARISON: None. FINDINGS: Image quality: Excellent. Lymph nodes: No enlarged lymph nodes seen throughout the neck. Vessels: Visualized vasculature appears patent. Right chest wall Port-A-Cath. Neck spaces: The oropharynx, nasopharynx, and pharynx demonstrate no mucosal lesions. The vocal cords, false vocal cords, pyriform sinuses, epiglottis, vallecula, and tongue base all appear normal. Extramucosal spaces appear unremarkable. Glands: Right parotid gland appears asymmetrically enlarged heterogeneous with superficial subcutaneous edema and skin thickening. Enlargement of the adjacent masseter muscle. The submandibular glands appear normal. Thyroid gland contains a right thyroid lobe nodule measuring 1.1 cm, no follow-up is necessary based on consensus criteria. Miscellaneous: Visualized brain and orbits appear normal. Lung apices appear clear. Superficial soft tissues appear normal. Bones: No suspicious bony lesions. Visualized sinuses and mastoids appear unremarkable. IMPRESSION: The right parotid gland is enlarged and heterogeneous with adjacent inflammation. Recommend correlation for signs of infection. Recommend follow-up to exclude underlying neoplastic process. Enlargement of the adjacent masseter muscle, may be reactive. No enlarged lymph nodes are identified within the neck. Large right pleural effusion is partially visualized. Dictated by: Jefferson Way M.D. on 01/29/2025 at 20:54 Approved by: Jefferson Way M.D. on 01/29/2025 at 20:58
--- NOTE | 2025-01-29 18:28 | ED_ITS ---
HPI - Skin/Abscess/Foreign Bdy General Chief complaint: Skin/Abscess/Foreign Body Stated complaint: swollen around neck ear and jaw Time Seen by Provider: 01/29/25 18:17 Source: patient Mode of arrival: Ambulatory Limitations: no limitations History of Present Illness HPI narrative: Patient is a 69-year-old female with a history of liver 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, esophageal varices, and squamous cell carcinoma of the head and neck. She presents with a four-day history of swelling and pain on the right side of her face, particularly behind the ear and over the parotid gland. The swelling is described as hot and painful. The patient denies recent illness, fever, chills, or exposure to sick contacts. She has a history of inoperable squamous cell carcinoma that has attached to the base of her skull. The patient was sent for a CT scan by her oncologist, Dr. Maria Del Carmen Moreno, from [facility] in [place]. She reports significant pain and has not taken her usual pain medication, 10 mg of oxycodone every four hours, for a while. She denies difficulty swallowing but notes a husky voice and difficulty opening her mouth. Medications: 10 mg oxycodone every four hours for pain. Past Medical History: 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, esophageal varices, squamous cell carcinoma of the head and neck. Surgical History: Removal of squamous cell carcinoma twice, currently inoperable. Related Data Home Medications Medication Instructions Recorded Confirmed furosemide 40 mg tablet 40 mg PO DAILY 10/04/24 10/04/24 morphine 15 mg tablet,extended 30 mg PO BEDTIME 10/04/24 10/04/24 release (MS Contin) nadolol 20 mg tablet 20 mg PO DAILY 10/04/24 10/04/24 oxycodone 10 mg tablet 10 mg PO Q4H PRN severe pain 10/04/24 10/04/24 spironolactone 100 mg tablet 100 mg PO DAILY 10/04/24 10/04/24 Previous Rx's Medication Instructions Recorded prochlorperazine 25 mg rectal 25 mg MA Q12H PRN nausea and 06/29/24 suppository vomiting #12 ea prochlorperazine maleate 10 mg 10 mg PO Q8H PRN nausea and 06/29/24 tablet vomiting #14 tabs albuterol sulfate 90 mcg/actuation 1 inh inhalation QID PRN shortness 08/21/24 aerosol inhaler (Ventolin HFA) of breath or wheezing #6.7 grams metoclopramide HCl 10 mg tablet 10 mg PO Q6H PRN nausea and 12/26/24 vomiting #30 tabs amoxicillin 875 mg-potassium 1 tab PO BID #14 tabs 01/29/25 clavulanate 125 mg tablet Allergies Allergy/AdvReac Type Severity Reaction Status Date / Time No Known Allergies Allergy Verified 12/26/24 09:35 Review of Systems Review of Systems Narrative: Constitutional: Denies fever, chills, recent illness. ENT: Reports swelling and pain on the right side of the face, husky voice, difficulty opening mouth. Gastrointestinal: Denies difficulty swallowing. Neurological: Denies recent illness, fever, chills, or exposure to sick contacts. Patient History Medical History Squamous cell carcinoma of head and neck 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 Upper gastrointestinal hemorrhage Esophageal varices Social History household members: significant other Smoking Status: Former smoker Smoking Status: Former smoker alcohol intake frequency: 0-2 drinks per day Exam Narrative Exam Narrative: General: Well appearing, well nourished, in no distress. Patient appears in significant pain. Skin: Good turgor, no rash, unusual bruising or prominent lesions. Head: Normocephalic, atraumatic. HEENT: Conjunctiva clear, EOM intact, PERRL, Mucous membranes moist. Mild trismus, dry mucous membranes, swelling over the right side of the face over the parotid gland with no significant erythema, no significant cervical anterior lymphadenopathy, oral compartments soft, no salivary stone visualized or palpated. Neck: Supple, normal ROM. No signs of crepitus. Heart: Regular rate and rhythm, no murmur or gallop or rubs. Lungs: Clear to auscultation. No rales rhonchi or wheezes. Abdomen: Soft and nontender. Bowel sounds normal. No mass or hernia. Soft, non- distended abdomen. Back: Spine normal without deformity or tenderness, no CVA tenderness. Extremities: No deformities, edema. Peripheral pulses intact. Neurologic: CN 2-12 normal. Normal sensation and motor exam. Psychiatric: Oriented X3. Normal mood and affect. Initial Vital Signs Initial Vital Signs: Vital Signs Temperature 97.8 F 01/29/25 17:24 Pulse Rate 106 H 01/29/25 17:24 Respiratory Rate 18 01/29/25 17:24 Blood Pressure 130/78 01/29/25 17:24 Pulse Oximetry 91 01/29/25 17:24 Oxygen Delivery Method Room Air 01/29/25 17:24 Course Orders Ordered: Discontinued Medications Acetaminophen (Acetaminophen 325 Mg Tablet) 650 mg PO NOW ONE Stop: 01/29/25 22:12 Last Admin: 01/29/25 22:35 Dose: 650 mg Documented By: MR Amoxicillin/Clavulanate Potassium (Amoxicillin/Clav 875/125 Mg) 1 tab PO NOW ONE Stop: 01/29/25 22:12 Last Admin: 01/29/25 22:34 Dose: 1 tab Documented By: Heparin Sodium (Porcine) (Heparin 500 Unit/5 Ml Port Flush) 500 unit IV PRN PRN PRN Reason: Flush Last Admin: 01/30/25 00:02 Dose: 500 unit Documented By: ALVIN Ketorolac Tromethamine (Ketorolac 30 Mg/Ml Vial) 15 mg IV NOW ONE Stop: 01/29/25 22:12 Last Admin: 01/29/25 22:34 Dose: 15 mg Documented By: MR Oxycodone HCl (Oxycodone 5 Mg/5 Ml Oral Solution) 10 mg PO Q4HR PRN PRN Reason: Pain, Moderate (4-6) Oxycodone HCl (Oxycodone Ir 5 Mg Tablet) 10 mg PO Q4HR PRN PRN Reason: Pain, Moderate (4-6) Last Admin: 01/29/25 18:41 Dose: 10 mg Documented By: SPF Vital Signs Vital signs: Vital Signs - 8 hr 01/29/25 22:31 01/29/25 23:00 01/29/25 23:21 Pulse Rate 104 H 98 H Blood Pressure 105/56 L Pulse Oximetry 92 93 01/29/25 23:21 01/29/25 23:30 01/30/25 00:00 Pulse Rate 97 H 96 H 94 H Blood Pressure Pulse Oximetry 94 93 91 01/30/25 00:07 01/30/25 00:07 Pulse Rate 94 H Blood Pressure 104/65 Pulse Oximetry 91 MDM - Skin/Abscess/Foreign Bdy Medical Records Medical records narrative: Lab Data 01/29/25 18:50 01/29/25 18:50 Labs: Lab Results 01/29/25 Range/Units 18:50 WBC 9.6 (4.5-11.0) X10^3/uL RBC 4.45 (4.0-5.2) X10^6/uL Hgb 8.6 L (12.0-16.0) g/dL Hct 27.9 L (36-46) % MCV 62.7 L (80-100) fL MCH 19.3 L (26-34) PG MCHC 30.8 (30-36) % RDW 21.0 H (11.6-14.8) % Plt Count 78 L (150-400) X10^3/uL Neut % (Auto) 89.4 H (50-75) % Lymph % (Auto) 3.5 L (25-40) % [place] % (Auto) 5.2 (3-14) % Eos % (Auto) 0.8 L (2-4) % Baso % (Auto) 1.1 (0-2) % Neut # (Auto) 8600 H (0207-2292) /uL Lymph # (Auto) 300 L (7137-2785) /uL [place] # (Auto) 500 (0-900) /uL Eos # (Auto) 100 (0-450) /uL Baso # (Auto) 100 (0-100) /uL RBC Morphology See below Anisocytosis 2+ H Microcytosis 1+ H Sodium 134 L (137-145) mmol/L Potassium 3.8 (3.4-5.1) mmol/L Chloride 103 (98-107) mmol/L Carbon Dioxide 23 (22-32) mmol/L BUN 7 (7-17) mg/dL Creatinine 0.52 (0.52-1.04) mg/dL Estimated GFR > 60 (>60) mL/min BUN/Creatinine Ratio 13.5 (6-22) Glucose 109 (80-110) mg/dL Calcium 8.1 L (8.4-10.2) mg/dL Total Bilirubin 1.4 H (0.2-1.3) mg/dL AST 26 (14-36) IU/L ALT 12 (<35) IU/L Alkaline Phosphatase 72 (38-126) U/L Total Protein 7.0 (6.3-8.2) g/dL Albumin 3.6 (3.5-5.0) g/dL Globulin 3.4 (1.7-4.1) g/dL Albumin/Globulin Ratio 1.1 (1.0-2.8) on review of lab work patient has no significant electrolyte abnormalities that will require intervention creatinine within normal limits no significant leukocytosis MDM Narrative Medical decision making narrative: 69-year-old female history of squamous cell cancer, Villatoro cirrhosis with esophageal varices coming in for 4 days of swelling over the right side of her face with worsening difficulty with opening her mouth and increasing pain. Sent in by her oncologist for CT scan and further evaluation. INITIAL EVALUATION AND PLAN: - Obtain lab work. - Administer pain medication. - Perform CT scan of the head and neck. - Consider differential diagnosis including parotitis, post-inflammatory state Salivary stone, and potential involvement of squamous cell carcinoma. - patient's airway appears intact she is breathing easily, no signs of significant distress with breathing, tolerating secretions do not believe patient needs advanced airway technique at this time patient has swelling appears to be isolated to the parotid gland, will obtain CT and lab work for further evaluation. patient's lab work is documented above and largely reassuring with no significant electrolytes requiring intervention no significant leukocytosis. Patient's CT scan was reviewed both independently and on review of radiology report, signs of parotid swelling likely infection no salivary stone identified, unclear malignancy or not, recommended follow up with oncologist. Will treat for infected parotid gland and have patient follow up with Oncology, at this time no signs of significant deep space infection, no signs of significant oral infection such as Yoshi's angina or retropharyngeal abscess. Patient is mentating appropriately breathing easily and has improved pain. We discussed return precautions and patient was discharged. Discharge Plan Departure Patient Disposition: Home Clinical Impression: Acute parotitis Activity Restrictions/Additional Instructions: you were seen in the emergency department and found to have a likely infection in your parotid gland however not fully able to rule out potential malignancy please see your oncologist as soon as possible for re-evaluation and potential MRI for further evaluation. Please take antibiotics as prescribed in order to help with this infection, if it does not begin to improve please return to the emergency department for re-evaluation. If you began to have changes in her voice, difficulty breathing please return to the ED. Prescriptions: New amoxicillin-pot clavulanate 875-125 mg tablet 1 tab PO BID Qty: 14 0RF No Action prochlorperazine maleate 10 mg tablet 10 mg PO Q8H PRN (Reason: nausea and vomiting) Qty: 14 0RF prochlorperazine 25 mg suppository 25 mg MA Q12H PRN (Reason: nausea and vomiting) Qty: 12 0RF morphine [MS Contin] 15 mg tablet extended release 30 mg PO BEDTIME oxycodone 10 mg tablet 10 mg PO Q4H PRN (Reason: severe pain) nadolol 20 mg tablet 20 mg PO DAILY furosemide 40 mg tablet 40 mg PO DAILY spironolactone 100 mg tablet 100 mg PO DAILY albuterol sulfate [Ventolin HFA] 90 mcg/actuation HFA aerosol inhaler 1 inh inhalation QID PRN (Reason: shortness of breath or wheezing) Qty: 6.7 0RF metoclopramide HCl 10 mg tablet 10 mg PO Q6H PRN (Reason: nausea and vomiting) Qty: 30 0RF Referrals: Miscellaneous,Doctor, MD [Primary Care Provider] - Stand Alone Forms: Patient Portal/API/Survey
[2025-01-29] MEDS: OXYCODONE IR 5 MG TABLET 10 MG PO (18:41)
[2025-01-29 19:23] LABS: Add Manual Diff / Slide Review NO; Alanine Aminotransferase 12 IU/L (<35); Albumin 3.6 g/dL (3.5-5.0); Albumin Globulin Ratio 1.1 (1.0-2.8); Alkaline Phosphatase 72 U/L (38-126); Aspartate Aminotransferase 26 IU/L (14-36); BUN Creatinine Ratio 13.5 (6-22); Basophils Absolute Auto 100 /uL (0-100); Basophils Percent Auto 1.1 % (0-2); Bilirubin Total 1.4 mg/dL (0.2-1.3); Blood Urea Nitrogen 7 mg/dL (7-17); Calcium 8.1 mg/dL (8.4-10.2); Carbon Dioxide 23 mmol/L (22-32); Chloride 103 mmol/L (98-107); Eosinophils Absolute Auto 100 /uL (0-450); Eosinophils Percent Auto 0.8 % (2-4); Estimated Glomerular Filt Rate > 60 mL/min (>60); Globulin 3.4 g/dL (1.7-4.1); Glucose 109 mg/dL (80-110); HEMOLYSIS < 15 (0-50); Hematocrit 27.9 % (36-46); Hemoglobin 8.6 g/dL (12.0-16.0); Lymphocytes Absolute Auto 300 /uL (1100-4500); Lymphocytes Percent Auto 3.5 % (25-40); Mean Corpuscular HGB Conc 30.8 % (30-36); Mean Corpuscular Hemoglobin 19.3 PG (26-34); Mean Corpuscular Volume 62.7 fL (80-100); Monocytes Absolute Auto 500 /uL (0-900); Monocytes Percent Auto 5.2 % (3-14); Neutrophils Absolute Auto 8600 /uL (1500-7000); Neutrophils Percent Auto 89.4 % (50-75); Platelet Count 78 X10^3/uL (150-400); Potassium 3.8 mmol/L (3.4-5.1); Red Blood Cell Count 4.45 X10^6/uL (4.0-5.2); Sodium 134 mmol/L (137-145); White Blood Cell Count 9.6 X10^3/uL (4.5-11.0)
[2025-01-29 19:45] LABS: Anisocytosis 2+; Microcytosis 1+
--- NOTE | 2025-01-29 21:03 | PC.NURSE ---
Notified physician that patient continues to be in pain
[2025-01-29] MEDS: AMOXICILLIN/CLAV 875/125 MG 1 TAB PO (22:34)
[2025-01-29] MEDS: KETOROLAC 30 MG/ML VIAL 15 MG IV (22:34)
[2025-01-29] MEDS: ACETAMINOPHEN 325 MG TABLET 650 MG PO (22:35)
[2025-01-30] VITALS: PULSE 94; O2SAT 91
[2025-01-30 00:07] VITALS: BP 104/65; PULSE 94; O2SAT 91
--- NOTE | 2025-01-30 00:25 | PC.NURSE ---
Patient discharged by Jovana DRAKE
== END 2025-01-30 00:15 | disposition home or self-care (01) ==
PROVIDERS: Emergency Provider Emergency Medicine
DX: K11.21 Acute sialoadenitis (principal); C44.42 Squamous cell carcinoma of skin of scalp and neck; Z87.891 Personal history of nicotine dependence
CPT/HCPCS: 36415; 70491; 80053; 85025; 96374; 96375; 99284; J1642; J1885; Q9967

== ENCOUNTER 2025-02-04 08:50 | Emergency (ER) | payer MEDICARE, SELFPAY ==
[2024-10-04 01:32] VITALS: BMI 24.3
[2025-02-04] VITALS (52 sets, daily range): BP systolic 105–141; BP diastolic 55–80; PULSE 94–123; RESP 11–37; TEMP 36.7; O2SAT 3–100; BMI 21.1
--- NOTE | 2025-02-04 08:53 | DI.RAD.S_ITS ---
PROCEDURE: XR CHEST 1V INDICATIONS: dyspnea TECHNIQUE: One view of the chest was acquired. COMPARISON: [facility], CR, XR CHEST 1V, 10/05/2024, 11:44. FINDINGS: Surgical changes and devices: Right chest Port-A-Cath Lungs and pleura: Development of a very large loculated right pleural effusion with collapse in the right lung and contralateral mediastinal shift to the left. Mediastinum: Mediastinal contours appear normal. Heart size is normal. Bones and chest wall: No suspicious bony lesions. Overlying soft tissues appear unremarkable. 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 There is significant collapse of the right lung. Dictated by: Scott Mckeon M.D. on 02/04/2025 at 9:31 Approved by: Scott Mckeon M.D. on 02/04/2025 at 9:37
--- NOTE | 2025-02-04 09:03 | ED.GENADULT ---
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 She was on CPAP prior to arrival is comfortable now with sats in the mid 90s at 6 L nasal cannula. She states that her dyspnea has been worsening over the last 2 weeks with the last 48 hours have been particularly bad. She is having trouble lying down flat. No palpitations, no change to her chronic cancer pain, she is concerned that she might be developing an umbilical hernia. She does not describe any recent fevers, cough or other viral symptoms. She was on Augmentin started on January 29 for parotid gland infection and notes that she began having diarrhea almost immediately after starting the Augmentin. Related Data Home Medications Medication Instructions Recorded Confirmed furosemide 40 mg tablet 40 mg PO DAILY 10/04/24 10/04/24 morphine 15 mg tablet,extended 30 mg PO BEDTIME 10/04/24 10/04/24 release (MS Contin) nadolol 20 mg tablet 20 mg PO DAILY 10/04/24 10/04/24 oxycodone 10 mg tablet 10 mg PO Q4H PRN severe pain 10/04/24 10/04/24 spironolactone 100 mg tablet 100 mg PO DAILY 10/04/24 10/04/24 Previous Rx's Medication Instructions Recorded prochlorperazine 25 mg rectal 25 mg [place] Q12H PRN nausea and 06/29/24 suppository vomiting #12 ea prochlorperazine maleate 10 mg 10 mg PO Q8H PRN nausea and 06/29/24 tablet vomiting #14 tabs albuterol sulfate 90 mcg/actuation 1 inh inhalation QID PRN shortness 08/21/24 aerosol inhaler (Ventolin HFA) of breath or wheezing #6.7 grams metoclopramide HCl 10 mg tablet 10 mg PO Q6H PRN nausea and 12/26/24 vomiting #30 tabs amoxicillin 875 mg-potassium 1 tab PO BID #14 tabs 01/29/25 clavulanate 125 mg tablet Allergies Allergy/AdvReac Type Severity Reaction Status Date / Time No Known Allergies Allergy Verified 12/26/24 09:35 Review of Systems Review of Systems Narrative: Pertinent positive and negative findings as per HPI Patient History Medical History Squamous cell carcinoma of head and neck 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 Upper gastrointestinal hemorrhage Esophageal varices Social History household members: significant other Smoking Status: Former smoker Smoking Status: Former smoker alcohol intake frequency: 0-2 drinks per day Exam Initial Vital Signs Initial Vital Signs: Vital Signs Pulse Rate 120 H 02/04/25 08:53 Blood Pressure 140/72 02/04/25 08:53 Pulse Oximetry 100 02/04/25 08:53 Oxygen Delivery Method Nasal Cannula 02/04/25 08:53 Oxygen Flow Rate 3 02/04/25 08:53 General: Chronically ill-appearing, cachectic HEENT: Moist mucous membranes, normal sclera with reactive pupils, Neck: No JVD, trachea is not obviously deviated Respiratory: Lungs minimal air movement on the right side and significantly diminished, no significant wheeze or rhonchi appreciated on the left side Cardiac: Tachycardic, regular Abdomen: Soft, mild ascites appreciated Skin: Pale Warm and dry, Neurologic: Grossly neurologically intact with no obvious asymmetries or abnormalities Extremities: No trauma, no lower extremity edema Psych: Cooperative, appropriate insight and affect Course Orders Ordered: ED Orders 02/04/25 08:53 XR chest 1V Stat 02/04/25 09:14 Urinalysis and Microscopic Stat 02/04/25 09:23 Complete Blood Count AUTO DIFF Stat Comprehensive Metabolic Panel Stat Lipase Stat Procalcitonin Stat Troponin I Stat 02/04/25 09:38 Type and Screen Stat 02/04/25 11:56 XR chest 1V Stat Discontinued Medications Hydromorphone HCl (Hydromorphone 1 Mg Inj) 1 mg IV NOW ONE Stop: 02/04/25 12:06 Last Admin: 02/04/25 12:05 Dose: 1 mg Documented By: ARIANA Sodium Chloride (Normal Saline 0.9%) 1,000 mls @ 1,000 mls/hr IV BOLUS ONE Stop: 02/04/25 13:24 Last Infusion: 02/04/25 13:35 Dose: Infused Documented By: Admin: 02/04/25 12:28 Dose: 1,000 mls/hr Documented By: ARIANA Oxycodone HCl (Oxycodone Ir 5 Mg Tablet) 10 mg PO NOW ONE Stop: 02/04/25 09:14 Last Admin: 02/04/25 09:37 Dose: 10 mg Documented By: ARIANA Vital Signs Vital signs: Vital Signs - 8 hr 02/04/25 08:53 02/04/25 08:53 02/04/25 08:55 Temperature 98.1 F Pulse Rate 120 H 121 H Pulse Rate [Orthostatic Lying] Pulse Rate [Orthostatic Standing] Respiratory Rate 25 H Blood Pressure 140/72 136/71 Blood Pressure [Orthostatic Lying] Blood Pressure [Orthostatic Sitting] Blood Pressure [Orthostatic Standing] Pulse Oximetry 100 98 Oxygen Delivery Method Nasal Cannula Nasal Cannula Oxygen Flow Rate 3 3 02/04/25 09:00 02/04/25 09:00 02/04/25 09:30 Temperature Pulse Rate 121 H Pulse Rate [Orthostatic Lying] Pulse Rate [Orthostatic Standing] Respiratory Rate 22 Blood Pressure 136/71 141/64 H Blood Pressure [Orthostatic Lying] Blood Pressure [Orthostatic Sitting] Blood Pressure [Orthostatic Standing] Pulse Oximetry 97 Oxygen Delivery Method Nasal Cannula Oxygen Flow Rate 3 02/04/25 09:30 02/04/25 10:00 02/04/25 10:00 Temperature Pulse Rate 119 H 119 H Pulse Rate [Orthostatic Lying] Pulse Rate [Orthostatic Standing] Respiratory Rate 17 Blood Pressure 130/73 Blood Pressure [Orthostatic Lying] Blood Pressure [Orthostatic Sitting] Blood Pressure [Orthostatic Standing] Pulse Oximetry 96 96 Oxygen Delivery Method Nasal Cannula Nasal Cannula Oxygen Flow Rate 3 3 02/04/25 10:30 02/04/25 10:30 02/04/25 10:54 Temperature Pulse Rate 118 H Pulse Rate [Orthostatic Lying] Pulse Rate [Orthostatic Standing] Respiratory Rate 31 H Blood Pressure 112/75 Blood Pressure [Orthostatic Lying] Blood Pressure [Orthostatic Sitting] Blood Pressure [Orthostatic Standing] Pulse Oximetry 94 3 L Oxygen Delivery Method Nasal Cannula Oxygen Flow Rate 02/04/25 11:00 02/04/25 11:00 02/04/25 11:30 Temperature Pulse Rate 118 H 105 H Pulse Rate [Orthostatic Lying] Pulse Rate [Orthostatic Standing] Respiratory Rate 26 H 25 H Blood Pressure 119/70 Blood Pressure [Orthostatic Lying] Blood Pressure [Orthostatic Sitting] Blood Pressure [Orthostatic Standing] Pulse Oximetry 95 96 Oxygen Delivery Method Oxygen Flow Rate 02/04/25 11:30 02/04/25 11:32 02/04/25 11:32 Temperature Pulse Rate 106 H Pulse Rate [Orthostatic Lying] Pulse Rate [Orthostatic Standing] Respiratory Rate 34 H Blood Pressure 118/80 121/70 Blood Pressure [Orthostatic Lying] Blood Pressure [Orthostatic Sitting] Blood Pressure [Orthostatic Standing] Pulse Oximetry 96 Oxygen Delivery Method Oxygen Flow Rate 02/04/25 11:35 02/04/25 11:35 02/04/25 11:40 Temperature Pulse Rate 106 H Pulse Rate [Orthostatic Lying] Pulse Rate [Orthostatic Standing] Respiratory Rate 19 Blood Pressure 128/71 140/75 Blood Pressure [Orthostatic Lying] Blood Pressure [Orthostatic Sitting] Blood Pressure [Orthostatic Standing] Pulse Oximetry 97 Oxygen Delivery Method Oxygen Flow Rate 02/04/25 11:40 02/04/25 11:44 02/04/25 11:45 Temperature Pulse Rate 123 H Pulse Rate [Orthostatic Lying] Pulse Rate [Orthostatic Standing] Respiratory Rate 24 30 H Blood Pressure 121/71 Blood Pressure [Orthostatic Lying] Blood Pressure [Orthostatic Sitting] Blood Pressure [Orthostatic Standing] Pulse Oximetry 96 96 Oxygen Delivery Method Nasal Cannula Oxygen Flow Rate 3 02/04/25 11:45 02/04/25 11:50 02/04/25 11:50 Temperature Pulse Rate 123 H 122 H Pulse Rate [Orthostatic Lying] Pulse Rate [Orthostatic Standing] Respiratory Rate 18 14 Blood Pressure 121/69 Blood Pressure [Orthostatic Lying] Blood Pressure [Orthostatic Sitting] Blood Pressure [Orthostatic Standing] Pulse Oximetry 95 95 Oxygen Delivery Method Oxygen Flow Rate 02/04/25 11:55 02/04/25 11:55 02/04/25 12:00 Temperature Pulse Rate 119 H Pulse Rate [Orthostatic Lying] Pulse Rate [Orthostatic Standing] Respiratory Rate 13 Blood Pressure 124/66 134/69 Blood Pressure [Orthostatic Lying] Blood Pressure [Orthostatic Sitting] Blood Pressure [Orthostatic Standing] Pulse Oximetry 97 Oxygen Delivery Method Oxygen Flow Rate 02/04/25 12:00 02/04/25 12:05 02/04/25 12:05 Temperature Pulse Rate 118 H 112 H Pulse Rate [Orthostatic Lying] Pulse Rate [Orthostatic Standing] Respiratory Rate 18 23 Blood Pressure 132/68 Blood Pressure [Orthostatic Lying] Blood Pressure [Orthostatic Sitting] Blood Pressure [Orthostatic Standing] Pulse Oximetry 96 95 Oxygen Delivery Method Oxygen Flow Rate 02/04/25 12:10 02/04/25 12:10 02/04/25 12:15 Temperature Pulse Rate 112 H Pulse Rate [Orthostatic Lying] Pulse Rate [Orthostatic Standing] Respiratory Rate 37 H Blood Pressure 117/60 105/66 Blood Pressure [Orthostatic Lying] Blood Pressure [Orthostatic Sitting] Blood Pressure [Orthostatic Standing] Pulse Oximetry 95 Oxygen Delivery Method Oxygen Flow Rate 02/04/25 12:15 02/04/25 12:20 02/04/25 12:20 Temperature Pulse Rate 112 H 111 H Pulse Rate [Orthostatic Lying] Pulse Rate [Orthostatic Standing] Respiratory Rate 30 H 14 Blood Pressure 119/69 Blood Pressure [Orthostatic Lying] Blood Pressure [Orthostatic Sitting] Blood Pressure [Orthostatic Standing] Pulse Oximetry 98 97 Oxygen Delivery Method Oxygen Flow Rate 02/04/25 12:25 02/04/25 12:25 02/04/25 12:30 Temperature Pulse Rate 108 H Pulse Rate [Orthostatic Lying] Pulse Rate [Orthostatic Standing] Respiratory Rate 26 H Blood Pressure 110/68 119/56 L Blood Pressure [Orthostatic Lying] Blood Pressure [Orthostatic Sitting] Blood Pressure [Orthostatic Standing] Pulse Oximetry 95 Oxygen Delivery Method Oxygen Flow Rate 02/04/25 12:30 02/04/25 12:35 02/04/25 12:35 Temperature Pulse Rate 104 H 102 H Pulse Rate [Orthostatic Lying] Pulse Rate [Orthostatic Standing] Respiratory Rate 15 15 Blood Pressure 112/60 Blood Pressure [Orthostatic Lying] Blood Pressure [Orthostatic Sitting] Blood Pressure [Orthostatic Standing] Pulse Oximetry 94 93 Oxygen Delivery Method Oxygen Flow Rate 02/04/25 12:40 02/04/25 12:40 02/04/25 12:45 Temperature Pulse Rate 99 H Pulse Rate [Orthostatic Lying] Pulse Rate [Orthostatic Standing] Respiratory Rate 14 Blood Pressure 121/59 L 118/65 Blood Pressure [Orthostatic Lying] Blood Pressure [Orthostatic Sitting] Blood Pressure [Orthostatic Standing] Pulse Oximetry 94 Oxygen Delivery Method Oxygen Flow Rate 02/04/25 12:45 02/04/25 12:50 02/04/25 12:50 Temperature Pulse Rate 101 H 107 H Pulse Rate [Orthostatic Lying] Pulse Rate [Orthostatic Standing] Respiratory Rate 19 15 Blood Pressure 112/58 L Blood Pressure [Orthostatic Lying] Blood Pressure [Orthostatic Sitting] Blood Pressure [Orthostatic Standing] Pulse Oximetry 92 96 Oxygen Delivery Method Oxygen Flow Rate 02/04/25 12:55 02/04/25 12:55 02/04/25 13:00 Temperature Pulse Rate 98 H Pulse Rate [Orthostatic Lying] Pulse Rate [Orthostatic Standing] Respiratory Rate 16 Blood Pressure 115/56 L 120/57 L Blood Pressure [Orthostatic Lying] Blood Pressure [Orthostatic Sitting] Blood Pressure [Orthostatic Standing] Pulse Oximetry 96 Oxygen Delivery Method Oxygen Flow Rate 02/04/25 13:00 02/04/25 13:05 02/04/25 13:05 Temperature Pulse Rate 97 H 97 H Pulse Rate [Orthostatic Lying] Pulse Rate [Orthostatic Standing] Respiratory Rate 14 17 Blood Pressure 120/60 Blood Pressure [Orthostatic Lying] Blood Pressure [Orthostatic Sitting] Blood Pressure [Orthostatic Standing] Pulse Oximetry 97 97 Oxygen Delivery Method Oxygen Flow Rate 02/04/25 13:10 02/04/25 13:10 02/04/25 13:15 Temperature Pulse Rate 97 H Pulse Rate [Orthostatic Lying] Pulse Rate [Orthostatic Standing] Respiratory Rate 21 Blood Pressure 126/59 L 114/58 L Blood Pressure [Orthostatic Lying] Blood Pressure [Orthostatic Sitting] Blood Pressure [Orthostatic Standing] Pulse Oximetry 97 Oxygen Delivery Method Oxygen Flow Rate 02/04/25 13:15 02/04/25 13:20 02/04/25 13:20 Temperature Pulse Rate 96 H 96 H Pulse Rate [Orthostatic Lying] Pulse Rate [Orthostatic Standing] Respiratory Rate 15 16 Blood Pressure 121/58 L Blood Pressure [Orthostatic Lying] Blood Pressure [Orthostatic Sitting] Blood Pressure [Orthostatic Standing] Pulse Oximetry 97 95 98 Oxygen Delivery Method Room Air Oxygen Flow Rate 02/04/25 13:25 02/04/25 13:26 02/04/25 13:26 Temperature Pulse Rate 97 H 97 H Pulse Rate [Orthostatic Lying] Pulse Rate [Orthostatic Standing] Respiratory Rate 19 11 L Blood Pressure 120/56 L Blood Pressure [Orthostatic Lying] Blood Pressure [Orthostatic Sitting] Blood Pressure [Orthostatic Standing] Pulse Oximetry 95 93 Oxygen Delivery Method Oxygen Flow Rate 02/04/25 13:30 02/04/25 13:30 02/04/25 13:31 Temperature Pulse Rate 94 H Pulse Rate [Orthostatic Lying] Pulse Rate [Orthostatic Standing] Respiratory Rate 11 L Blood Pressure 115/57 L 119/58 L Blood Pressure [Orthostatic Lying] Blood Pressure [Orthostatic Sitting] Blood Pressure [Orthostatic Standing] Pulse Oximetry 94 Oxygen Delivery Method Oxygen Flow Rate 02/04/25 13:31 02/04/25 13:32 02/04/25 13:32 Temperature Pulse Rate 101 H 101 H Pulse Rate [Orthostatic Lying] Pulse Rate [Orthostatic Standing] Respiratory Rate 27 H 25 H Blood Pressure 110/55 L Blood Pressure [Orthostatic Lying] Blood Pressure [Orthostatic Sitting] Blood Pressure [Orthostatic Standing] Pulse Oximetry 93 92 Oxygen Delivery Method Oxygen Flow Rate 02/04/25 13:35 02/04/25 13:35 02/04/25 13:39 Temperature Pulse Rate 98 H Pulse Rate [Orthostatic Lying] 94 H Pulse Rate [Orthostatic Standing] 101 H Respiratory Rate 15 Blood Pressure 110/55 L Blood Pressure [Orthostatic Lying] 115/57 L Blood Pressure [Orthostatic Sitting] 119/58 L Blood Pressure [Orthostatic Standing] 110/55 L Pulse Oximetry 91 Oxygen Delivery Method Oxygen Flow Rate 02/04/25 13:40 02/04/25 13:40 Temperature Pulse Rate 96 H Pulse Rate [Orthostatic Lying] Pulse Rate [Orthostatic Standing] Respiratory Rate 18 Blood Pressure 106/59 L Blood Pressure [Orthostatic Lying] Blood Pressure [Orthostatic Sitting] Blood Pressure [Orthostatic Standing] Pulse Oximetry 91 Oxygen Delivery Method Oxygen Flow Rate Medical Decision Making Lab Data 02/04/25 09:23 02/04/25 09:23 Labs: Lab Results 02/04/25 02/04/25 Range/Units 09:23 09:38 WBC 6.5 (4.5-11.0) X10^3/uL RBC 5.00 (4.0-5.2) X10^6/uL Hgb 9.5 L (12.0-16.0) g/dL Hct 31.0 L (36-46) % MCV 62.1 L (80-100) fL MCH 19.1 L (26-34) PG MCHC 30.7 (30-36) % RDW 22.2 H (11.6-14.8) % Plt Count 157 (150-400) X10^3/uL Neut % (Auto) 83.4 H (50-75) % Lymph % (Auto) 10.7 L (25-40) % [place] % (Auto) 4.1 (3-14) % Eos % (Auto) 1.0 L (2-4) % Baso % (Auto) 0.8 (0-2) % Neut # (Auto) 5500 (7616-9514) /uL Lymph # (Auto) 700 L (8229-2358) /uL [place] # (Auto) 300 (0-900) /uL Eos # (Auto) 100 (0-450) /uL Baso # (Auto) 100 (0-100) /uL RBC Morphology Not Reportable Rouleaux 1+ H Sodium 135 L (137-145) mmol/L Potassium 3.9 (3.4-5.1) mmol/L Chloride 105 (98-107) mmol/L Carbon Dioxide 18 L (22-32) mmol/L BUN 10 (7-17) mg/dL Creatinine 0.58 (0.52-1.04) mg/dL Estimated GFR > 60 (>60) mL/min BUN/Creatinine Ratio 17.2 (6-22) Glucose 112 H (80-110) mg/dL Calcium 8.4 (8.4-10.2) mg/dL Total Bilirubin 1.1 (0.2-1.3) mg/dL AST 28 (14-36) IU/L ALT 13 (<35) IU/L Alkaline Phosphatase 88 (38-126) U/L Troponin I < 0.012 (0.01-0.034) ng/mL Total Protein 7.6 (6.3-8.2) g/dL Albumin 3.8 (3.5-5.0) g/dL Globulin 3.8 (1.7-4.1) g/dL Albumin/Globulin Ratio 1.0 (1.0-2.8) Lipase 115 (23-300) U/L Procalcitonin 20.7 H (<0.5) ng/mL Blood Type A Negative Antibody Screen Negative MDM Narrative Medical decision making narrative: CC: Dyspnea Complicating co-morbidities: Metastatic head and neck cancer, ascites/liver failure secondary to VILLATORO, recent upper GI bleed Data collected from: patient, medics Social determinants of health that may influence the patients condition: Medical records reviewed: [facility] records from January 29 reviewed, [facility] records with GI bleed and discharge from December 21 are reviewed Recent diagnostic studies include a soft tissue neck CT on the , abdomen pelvis CT on December 20 showed an unchanged moderate right effusion, nonspecific thickening in the cecum, chronic appearing cirrhosis with portal vein hypertension and ascites Differential considered: Progressive effusion, pulmonary embolism, progressive neoplastic process increasing edema, anemia Exam documented above, pertinent findings include: Chronically ill, cachectic, significantly diminished sounds on the right, mild tachycardia Lab Test results independently reviewed as above. Pertinent findings: CBC shows no leukocytosis and slight increased overall H&H with chronic anemia, currently at 9.5 and 31. Platelets are actually normal at 157 Chemistries are reassuring, no acute kidney injury Troponin Is undetectable Liver studies are reassuring Procalcitonin is elevated at 20.7 consistent with her oncology diagnoses Imaging studies independently reviewed: Chest x-ray shows large right pleural effusion with midline deviation Postprocedure chest x-ray shows almost completely evacuated pleural effusion with no evidence of secondary pneumothorax Consultations: In looking through medical records at [facility] it does not like she has had cytology done on pleural fluid previously. It does sound like she has had pleural fluid drained. Consult with her primary oncologist Dr. Moreno at the [facility] to see if she would like cytology done. Also shared with her the large and symptomatic effusion that is developed over the last approximately 2 weeks with concerns for dealt developing abdominal ascites as well. It is unclear if the patient recognizes that this is going to be a life ending diagnosis. Does not sound like the patient has ever considered or discuss possibility of hospice. I am concerned that the pleural effusion will recur quickly and may need more advanced treatment simply for comfort. Patient does have an appointment with Dr. Moreno in a week. We will make sure that records from today along with labs and radiology results are available. Treatments: L of fluid, IV Dilaudid, oral hydrocodone Procedure: Right-sided thoracentesis Indication: Symptomatic treatment and diagnostic exam Time is 12:00 p.m. Informed consent is obtained written Studies and ultrasound reviewed identifying appropriate placement prior to procedure A total of 2 cc of lidocaine is injected about the site where the catheter we will be introduced Sterile technique was used and thoracentesis catheter is introduced into the base of the right thorax. No complications with bleeding Total of 7 L of urine colored pleural fluid removed Patient tolerated the procedure well. Heart rate has come down, oxygen saturations were coming up. She is coughing appropriately. No bleeding identified Re-evaluations: Discussion: Discharge Plan Departure Patient Disposition: Home Clinical Impression: Malignant pleural effusion, Hypoxia Instructions: DI for Pleural Effusion Activity Restrictions/Additional Instructions: Thank you for coming in today I was able to drain 7 L of fluid from your right lung today. This did seem to help with your heart rate and oxygen levels In discussion with Dr. Moreno, I have sent some of the fluid for cytology but I do presume that this is related to your cancer I am going to give you a copy of today's notes as well as labs. Please take all of these with you to your appointment with Dr. Moreno. Please let her know that all of the imaging studies done in 2024 at [facility] have been transmitted to the [facility] system for her review After draining all of the fluid, your oxygen levels resting go up to 97% but still dropped down a bit with walking. I have given you an incentive spirometer, this helps inflate your lungs and we will continue to help get the rest of your right lung working after it has been squished by all of the fluid around it If you feel that you are getting worse, have more difficulty breathing or develop new symptoms do come back to the emergency department Prescriptions: No Action prochlorperazine maleate 10 mg tablet 10 mg PO Q8H PRN (Reason: nausea and vomiting) Qty: 14 0RF prochlorperazine 25 mg suppository 25 mg WA Q12H PRN (Reason: nausea and vomiting) Qty: 12 0RF morphine [MS Contin] 15 mg tablet extended release 30 mg PO BEDTIME oxycodone 10 mg tablet 10 mg PO Q4H PRN (Reason: severe pain) nadolol 20 mg tablet 20 mg PO DAILY furosemide 40 mg tablet 40 mg PO DAILY spironolactone 100 mg tablet 100 mg PO DAILY amoxicillin-pot clavulanate 875-125 mg tablet 1 tab PO BID Qty: 14 0RF albuterol sulfate [Ventolin HFA] 90 mcg/actuation HFA aerosol inhaler 1 inh inhalation QID PRN (Reason: shortness of breath or wheezing) Qty: 6.7 0RF metoclopramide HCl 10 mg tablet 10 mg PO Q6H PRN (Reason: nausea and vomiting) Qty: 30 0RF Stand Alone Forms: Patient Portal/API/Survey
--- NOTE | 2025-02-04 09:10 | PC.NURSE ---
Pt states that she has been feeling SOB and weak for a few days. Today SOB was worse. Pt having difficulty speaking in full sentences. Tripod position, grunting & pursed lip breathing. Pt placed on c-pap by [facility] due to low o2 sat on arrival to scene. Skin pink, warm and dry. Hx of pleural effusion x2 months ago in right lung. Right lung sounds diminished during tirage. Pt has hx of squamous cell carcinoma in jaw & neck. RT at bedside during triage. Pt o2 sat on RA 88%. RT placed pt on 3L NC and o2 sat 97% and sitting in upright position. Afebrile. Pt a&Ox4.
[2025-02-04 09:34] LABS: Add Manual Diff / Slide Review NO; Basophils Absolute Auto 100 /uL (0-100); Basophils Percent Auto 0.8 % (0-2); Eosinophils Absolute Auto 100 /uL (0-450); Hemoglobin 9.5 g/dL (12.0-16.0); Lymphocytes Absolute Auto 700 /uL (1100-4500); Lymphocytes Percent Auto 10.7 % (25-40); Mean Corpuscular HGB Conc 30.7 % (30-36); Mean Corpuscular Hemoglobin 19.1 PG (26-34); Mean Corpuscular Volume 62.1 fL (80-100); Monocytes Absolute Auto 300 /uL (0-900); Monocytes Percent Auto 4.1 % (3-14); Neutrophils Absolute Auto 5500 /uL (1500-7000); Neutrophils Percent Auto 83.4 % (50-75); Platelet Count 157 X10^3/uL (150-400); Red Cell Distribution Width 22.2 % (11.6-14.8); White Blood Cell Count 6.5 X10^3/uL (4.5-11.0)
[2025-02-04] MEDS: OXYCODONE IR 5 MG TABLET 10 MG PO (09:37)
[2025-02-04 09:43] LABS: Alanine Aminotransferase 13 IU/L (<35); Albumin 3.8 g/dL (3.5-5.0); Alkaline Phosphatase 88 U/L (38-126); Aspartate Aminotransferase 28 IU/L (14-36); BUN Creatinine Ratio 17.2 (6-22); Bilirubin Total 1.1 mg/dL (0.2-1.3); Blood Urea Nitrogen 10 mg/dL (7-17); Calcium 8.4 mg/dL (8.4-10.2); Carbon Dioxide 18 mmol/L (22-32); Chloride 105 mmol/L (98-107); Estimated Glomerular Filt Rate > 60 mL/min (>60); Globulin 3.8 g/dL (1.7-4.1); Glucose 112 mg/dL (80-110); HEMOLYSIS < 15 (0-50); Lipase 115 U/L (23-300); Potassium 3.9 mmol/L (3.4-5.1); Sodium 135 mmol/L (137-145); Total Protein 7.6 g/dL (6.3-8.2)
[2025-02-04 09:45] LABS: Rouleaux 1+
[2025-02-04 09:55] LABS: Troponin I < 0.012 ng/mL (0.01-0.034)
[2025-02-04 10:00] LABS: Procalcitonin 20.7 ng/mL (<0.5)
--- NOTE | 2025-02-04 11:52 | PATH_ITS ---
Note [facility] Accession Number: [id number] TESTS RESULT FLAG UNITS REF RANGE LAB Clinician Provided Cytology Information No. of containers..02 Other (Miscellaneous) Source: PLEURAL FLUID DIAGNOSIS: PLEURAL FLUID INCONCLUSIVE. THIS INTERPRETATION INCLUDES EVALUATION OF A CELL BLOCK. SCANT ATYPICAL CELL GROUPS PRESENT. ANCILLARY STUDIES REQUESTED TO CHARACTERIZE THE ATYPICAL CELLS; RESULTS WILL BE REPORTED AN ADDENDUM. Pathologist ICD10: J90 Signed out by: Saida Tucker MD, Pathologist NPI- [id number] Performed by: Ezra Yap, Rn Admit ([facility]) Gross description: 160 CC, YELLOW, CLEAR RECEIVED: FRESH IN TWO BLUE CAP CONTAINERS. /VDU 02/05/2025 0919 Local FLAG LEGEND: L-Low Normal,H-High Normal,LL-Alert Low,HH-Alert High <-Panic Low,>-Panic High,A-Abnormal,AA-Critical Abnormal Performed at: 01 =Z [facility] [address], [place] [address] Zeyad Jackson MD, Performed at: 01 [facility] [address], [place], [place] [id number] MD Zeyad Jackson MD Phone: [phone]
--- NOTE | 2025-02-04 11:56 | DI.RAD.S_ITS ---
PROCEDURE: XR CHEST 1V INDICATIONS: post pleurocentesis TECHNIQUE: One view of the chest was acquired. COMPARISON: [facility], CR, XR CHEST 1V, 02/04/2025, 8:54. [facility], CR, XR CHEST 1V, 10/05/2024, 11:44. FINDINGS: Surgical changes and devices: Right chest wall Port-A-Cath in stable position. Catheter overlying the right chest, possible pigtail catheter. Lungs and pleura: Significant improvement in right-sided effusion. Mild blunting of the right costophrenic angle suggestive of small residual effusion. The lungs otherwise appear clear. No definite pneumothorax is seen. Mediastinum: Mediastinal contours appear normal. Heart size is normal. Bones and chest wall: No suspicious bony lesions. Overlying soft tissues appear unremarkable. IMPRESSION: Significantly decreased size of right-sided pleural effusion with mild blunting of the right costophrenic angle, suggestive of small effusion. No definite pneumothorax is seen. Dictated by: Jefferson Way M.D. on 02/04/2025 at 12:38 Approved by: Jefferson Way M.D. on 02/04/2025 at 12:41
[2025-02-04] MEDS: HYDROMORPHONE 1 MG INJ IV (12:05)
[2025-02-04] MEDS: SODIUM CHLORIDE 0.9% 1,000 ML 1000 ML IV (12:28)
--- NOTE | 2025-02-04 12:39 | PC.NURSE ---
Pt tolerated procedure without complication. 6.5L drained. 100mL sent to lab for cytology. Pt a&ox4.
--- NOTE | 2025-02-04 13:41 | PC.NURSE ---
Orthostatics done. Pt denies any SOB, dizziness or lightheadedness. Pt o2 sat dropped to 88% when pt stood up, but continued to deny SOB or difficulty breathing. Pt o2 sat recovered to 92% after 1-2 minutes of rest. Pt a&ox4.
--- NOTE | 2025-02-04 14:04 | PC.NURSE ---
Ambulation trial with pulse ox. Pt ambulates with steady gait but o2 sat dropped down to 88-89%. After pt back in bed, o2 sat recovered to 92%. Dr Steward notified of pt status and ok to dc.
== END 2025-02-04 14:56 | disposition home or self-care (01) ==
PROVIDERS: Emergency Provider Emergency Medicine
DX: C44.42 Squamous cell carcinoma of skin of scalp and neck (principal); J91.0 Malignant pleural effusion; R09.02 Hypoxemia; R00.0 Tachycardia, unspecified
CPT/HCPCS: 32555; 71045; 80053; 83690; 84145; 84484; 85025; 86850; 86900; 86901; 96361; 96374; 99285; J1171

== ENCOUNTER 2025-03-05 14:23 | Emergency (ER) | payer MEDICARE, SELFPAY ==
[2024-10-04 01:32] VITALS: BMI 24.3
[2025-03-05] VITALS (33 sets, daily range): BP systolic 64–145; BP diastolic 39–75; PULSE 69–90; RESP 12–26; TEMP 36.6; O2SAT 88–98
--- NOTE | 2025-03-05 14:48 | DI.RAD.S_ITS ---
PROCEDURE: XR CHEST 1V INDICATIONS: SOB TECHNIQUE: One view of the chest was acquired. COMPARISON: [facility], CR, XR CHEST 1V, 02/04/2025, 12:10. [facility], CR, XR CHEST 1V, 02/04/2025, 8:54. FINDINGS: Surgical changes and devices: Port-A-Cath from right-sided approach extends into the distal SVC area, which is shifted leftward due to large right effusion. Lungs and pleura: Lungs are clear on the left but there is dense atelectasis involving much of the right lung associated with a very large right pleural effusion with associated mediastinal shift from right to the left to mild degree. No pneumothorax. Mediastinum: Mediastinal contours appear normal. Heart size is normal. Bones and chest wall: No suspicious bony lesions. Overlying soft tissues appear unremarkable. IMPRESSION: Recurrent very large right pleural effusion with mediastinal shift from right to left to a mild degree. Port-A-Cath in normal position from right-sided approach with a somewhat leftward deviated course due to the mediastinal shift noted. The effusion is equivalent to that present 02/04/25. Dictated by: Bridger Nunes M.D. on 03/05/2025 at 15:30 Approved by: Bridger Nunes M.D. on 03/05/2025 at 15:32
[2025-03-05 15:45] LABS: Add Manual Diff / Slide Review NO; Basophils Absolute Auto 100 /uL (0-100); Basophils Percent Auto 1.1 % (0-2); Eosinophils Absolute Auto 200 /uL (0-450); Eosinophils Percent Auto 3.3 % (2-4); Hemoglobin 9.1 g/dL (12.0-16.0); INR 1.2 (0.9-1.3); Lymphocytes Absolute Auto 700 /uL (1100-4500); Lymphocytes Percent Auto 11.6 % (25-40); Mean Corpuscular HGB Conc 30.5 % (30-36); Mean Corpuscular Hemoglobin 19.1 PG (26-34); Mean Corpuscular Volume 62.6 fL (80-100); Monocytes Absolute Auto 700 /uL (0-900); Monocytes Percent Auto 11.1 % (3-14); Neutrophils Absolute Auto 4500 /uL (1500-7000); Neutrophils Percent Auto 72.9 % (50-75); Platelet Count 127 X10^3/uL (150-400); Prothrombin Time 13.9 SECONDS (9.4-12.5); Red Blood Cell Count 4.79 X10^6/uL (4.0-5.2); Red Cell Distribution Width 23.4 % (11.6-14.8); White Blood Cell Count 6.2 X10^3/uL (4.5-11.0)
[2025-03-05 15:47] LABS: PTT Partial Thromboplastin Tim 51 SECONDS (25.1-36.5)
[2025-03-05 15:49] LABS: Lactate (Lactic Acid) 1.1 mmol/L (0.7-2.1)
[2025-03-05 15:50] LABS: Alanine Aminotransferase 15 IU/L (<35); Albumin 3.7 g/dL (3.5-5.0); Albumin Globulin Ratio 1.2 (1.0-2.8); Alkaline Phosphatase 89 U/L (38-126); Aspartate Aminotransferase 32 IU/L (14-36); BUN Creatinine Ratio 25.8 (6-22); Bilirubin Total 1.4 mg/dL (0.2-1.3); Blood Urea Nitrogen 17 mg/dL (7-17); Calcium 8.5 mg/dL (8.4-10.2); Carbon Dioxide 25 mmol/L (22-32); Chloride 100 mmol/L (98-107); Creatine Kinase 48 U/L (30-135); Estimated Glomerular Filt Rate > 60 mL/min (>60); Globulin 3.2 g/dL (1.7-4.1); Glucose 113 mg/dL (80-110); HEMOLYSIS < 15 (0-50); Lipase 87 U/L (23-300); Magnesium 1.7 mg/dL (1.6-2.3); Potassium 4.4 mmol/L (3.4-5.1); Sodium 131 mmol/L (137-145); Total Protein 6.9 g/dL (6.3-8.2)
[2025-03-05 16:01] LABS: Anisocytosis 2+; Hypochromasia 1+; Microcytosis 2+
[2025-03-05 16:02] LABS: NT-proBNP (BNP-Adult 18+) 970 pg/mL (<125); Ovalocytes 1+; Troponin I < 0.012 ng/mL (0.01-0.034)
[2025-03-05 16:07] LABS: Procalcitonin 0.099 ng/mL (<0.5)
--- NOTE | 2025-03-05 18:34 | ED.SOB ---
HPI - SOB/Dyspnea General Chief Complaint: Shortness of Breath/Dyspnea Stated Complaint: SOB- fluid in lungs? 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 Steward. Patient states that she has not increased shortness of breath. She did have thoracentesis a week ago as an outpatient with her oncology team. There has been discussion of a PleurX catheter. Patient states that she has found it very helpful. She was requiring little bit of oxygen today which is atypical for her. She was on 1 L nasal cannula. She denies any fevers or chills. Denies any chest pain. No other GI or urinary symptoms currently. No new swelling of her extremities. She was not on any anticoagulants currently. She was following with Oncology in [place] and is supposed to see hepatology on the 17 of March. Related Data Home Medications Medication Instructions Recorded Confirmed furosemide 40 mg tablet 40 mg PO DAILY 10/04/24 10/04/24 morphine 15 mg tablet,extended 30 mg PO BEDTIME 10/04/24 10/04/24 release (MS Contin) nadolol 20 mg tablet 20 mg PO DAILY 10/04/24 10/04/24 oxycodone 10 mg tablet 10 mg PO Q4H PRN severe pain 10/04/24 10/04/24 spironolactone 100 mg tablet 100 mg PO DAILY 10/04/24 10/04/24 Previous Rx's Medication Instructions Recorded prochlorperazine 25 mg rectal 25 mg UT Q12H PRN nausea and 06/29/24 suppository vomiting #12 ea prochlorperazine maleate 10 mg 10 mg PO Q8H PRN nausea and 06/29/24 tablet vomiting #14 tabs albuterol sulfate 90 mcg/actuation 1 inh inhalation QID PRN shortness 08/21/24 aerosol inhaler (Ventolin HFA) of breath or wheezing #6.7 grams metoclopramide HCl 10 mg tablet 10 mg PO Q6H PRN nausea and 12/26/24 vomiting #30 tabs amoxicillin 875 mg-potassium 1 tab PO BID #14 tabs 01/29/25 clavulanate 125 mg tablet Allergies Allergy/AdvReac Type Severity Reaction Status Date / Time No Known Allergies Allergy Verified 12/26/24 09:35 Review of Systems Review of Systems ROS Unobtainable: All systems reviewed & are unremarkable except as noted in HPI and below Patient History Medical History Squamous cell carcinoma of head and neck 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 RESPIRATORY: Breath sounds are decreased on the right with crackles on the left. No wheezes. Mild tachypnea. No accessory muscle use. Patient is able to speak in full sentences. ABDOMEN: Soft, nontender. Normoactive bowel sounds all 4 quadrants. No guarding or rebound, rigidity, no mass : No CVA tenderness EXTREMITIES: Normal range of motion, no clubbing or edema. Neurovascularly intact NEUROLOGICAL: Cranial nerves II through XII grossly intact. Moving all extremities SKIN: Warm, dry, no petechiae, no rashes or lesions. Initial Vital Signs Initial Vital Signs: Vital Signs Temperature 98 F 03/05/25 14:40 Pulse Rate 81 03/05/25 14:40 Respiratory Rate 22 03/05/25 14:40 Blood Pressure 97/68 03/05/25 14:40 Pulse Oximetry 92 03/05/25 14:40 Oxygen Delivery Method Room Air 03/05/25 14:40 [place] [facility] [place] Procedure: PROCEDURE: Thoracentesis, U/S guided. INDICATION: Large pleural effusion, symptomatic/therapeutic PROCEDURE [employer] FORWARDER: Dr. Aceves CONSENT: Consent was obtained from the patient prior to the procedure. Indications, risks, and benefits were explained at length. PROCEDURE SUMMARY: A time out was performed. The patient was prepped and draped in a sterile manner using chlorhexidine scrub after the appropriate level was confirmed by ultrasound. 1% lidocaine was used to numb the region. Needle was advanced without any blood back. Clear yellow fluid was aspirated The patient had 3000 mL of fluid removed. No immediate complications were noted during the procedure. A post-procedure xray was ordered. The fluid will be sent for studies. ESTIMATED BLOOD LOSS: 5m Complications: [none] Chest xray-[default value] Course Orders Ordered: Discontinued Medications Acetaminophen (Acetaminophen 325 Mg Tablet) 975 mg PO NOW ONE Stop: 03/05/25 19:03 Last Admin: 03/05/25 19:05 Dose: 975 mg Documented By: ELEANOR Sodium Chloride (Normal Saline 0.9%) 500 mls @ 1,000 mls/hr IV BOLUS ONE Stop: 03/05/25 22:05 Last Infusion: 03/05/25 22:46 Dose: Infused Documented By: Admin: 03/05/25 21:39 Dose: 1,000 mls/hr Documented By: ELEANOR Albumin Human (Albuminar) 12.5 gm in 50 mls @ 60 mls/hr IV NOW ONE Stop: 03/05/25 23:28 Last Infusion: 03/05/25 23:48 Dose: Infused Documented By: Admin: 03/05/25 22:52 Dose: 60 mls/hr Documented By: ELEANOR Lidocaine HCl (Lidocaine 2% Inj Sdv 5ml) 2 ml INJ NOW ONE Stop: 03/05/25 19:50 Last Admin: 03/05/25 19:52 Dose: 2 ml Documented By: ELEANOR Oxycodone HCl (Oxycodone Ir 5 Mg Tablet) 10 mg PO NOW ONE Stop: 03/05/25 19:01 Last Admin: 03/05/25 19:01 Dose: 10 mg Documented By: ELEANOR Vital Signs Vital signs: Vital Signs - 8 hr 03/05/25 17:53 03/05/25 17:55 03/05/25 17:55 Pulse Rate 90 82 Respiratory Rate 22 19 Blood Pressure 145/71 H Pulse Oximetry Oxygen Delivery Method Oxygen Flow Rate 03/05/25 18:00 03/05/25 18:00 03/05/25 18:06 Pulse Rate 79 80 Respiratory Rate 14 Blood Pressure 131/75 Pulse Oximetry 95 97 Oxygen Delivery Method Oxygen Flow Rate 2 2 03/05/25 18:06 03/05/25 18:30 03/05/25 18:30 Pulse Rate 75 Respiratory Rate 15 Blood Pressure 116/71 114/64 Pulse Oximetry 98 Oxygen Delivery Method Oxygen Flow Rate 2 2 03/05/25 19:00 03/05/25 19:00 03/05/25 19:24 Pulse Rate 76 Respiratory Rate 20 Blood Pressure 105/63 Pulse Oximetry 95 88 L Oxygen Delivery Method Room Air Oxygen Flow Rate 2 0 03/05/25 19:24 03/05/25 19:30 03/05/25 19:36 Pulse Rate 75 Respiratory Rate 17 Blood Pressure 112/62 Pulse Oximetry 92 96 Oxygen Delivery Method Oxygen Flow Rate 1 2 03/05/25 19:36 03/05/25 20:00 03/05/25 20:00 Pulse Rate 75 78 Respiratory Rate 20 17 Blood Pressure 107/58 L Pulse Oximetry 96 95 Oxygen Delivery Method Oxygen Flow Rate 2 2 03/05/25 20:15 03/05/25 20:15 03/05/25 20:20 Pulse Rate 77 Respiratory Rate 22 Blood Pressure 110/61 111/58 L Pulse Oximetry 95 Oxygen Delivery Method Oxygen Flow Rate 1 03/05/25 20:20 03/05/25 20:26 03/05/25 20:26 Pulse Rate 74 75 Respiratory Rate 24 26 H Blood Pressure 108/56 L Pulse Oximetry 96 95 Oxygen Delivery Method Oxygen Flow Rate 1 1 03/05/25 20:30 03/05/25 20:30 03/05/25 20:59 Pulse Rate 75 71 Respiratory Rate 24 12 Blood Pressure 108/64 Pulse Oximetry 95 97 Oxygen Delivery Method Oxygen Flow Rate 1 1 03/05/25 21:00 03/05/25 21:00 03/05/25 21:05 Pulse Rate 71 Respiratory Rate 14 Blood Pressure 91/50 L 101/49 L Pulse Oximetry 98 Oxygen Delivery Method Oxygen Flow Rate 0 03/05/25 21:05 03/05/25 21:30 03/05/25 21:30 Pulse Rate 72 69 Respiratory Rate 18 16 Blood Pressure 84/51 L Pulse Oximetry 94 97 Oxygen Delivery Method Oxygen Flow Rate 0 0.5 03/05/25 21:32 03/05/25 21:32 03/05/25 22:00 Pulse Rate 69 Respiratory Rate 20 Blood Pressure 87/54 L 77/51 L Pulse Oximetry 98 Oxygen Delivery Method Oxygen Flow Rate 0.5 03/05/25 22:00 03/05/25 22:09 03/05/25 22:09 Pulse Rate 70 71 Respiratory Rate 18 Blood Pressure 86/48 L Pulse Oximetry 92 93 Oxygen Delivery Method Oxygen Flow Rate 0.5 0.5 03/05/25 22:30 03/05/25 22:30 03/05/25 22:30 Pulse Rate 70 70 Respiratory Rate 21 21 Blood Pressure 74/47 L Pulse Oximetry 91 91 Oxygen Delivery Method Oxygen Flow Rate 03/05/25 22:35 03/05/25 22:35 03/05/25 22:37 Pulse Rate 69 Respiratory Rate 14 Blood Pressure 64/39 L 92/53 L Pulse Oximetry 89 L Oxygen Delivery Method Oxygen Flow Rate 0.5 03/05/25 22:37 03/05/25 22:40 03/05/25 22:40 Pulse Rate 69 69 Respiratory Rate 18 12 Blood Pressure 92/53 L Pulse Oximetry 89 L 91 Oxygen Delivery Method Oxygen Flow Rate 0.5 0.5 03/05/25 22:50 03/05/25 22:50 03/05/25 23:00 Pulse Rate 70 70 Respiratory Rate 15 18 Blood Pressure 89/51 L Pulse Oximetry 91 91 Oxygen Delivery Method Oxygen Flow Rate 0.5 0.5 03/05/25 23:00 03/05/25 23:10 03/05/25 23:10 Pulse Rate 69 Respiratory Rate 14 Blood Pressure 86/53 L 86/54 L Pulse Oximetry 90 L Oxygen Delivery Method Oxygen Flow Rate 0.5 03/05/25 23:20 03/05/25 23:20 03/05/25 23:30 Pulse Rate 70 Respiratory Rate 12 Blood Pressure 85/52 L 86/53 L Pulse Oximetry 91 Oxygen Delivery Method Oxygen Flow Rate 03/05/25 23:30 03/05/25 23:40 03/05/25 23:40 Pulse Rate 71 70 Respiratory Rate 12 14 Blood Pressure 89/50 L Pulse Oximetry 91 91 Oxygen Delivery Method Oxygen Flow Rate 03/05/25 23:50 03/05/25 23:50 03/06/25 00:00 Pulse Rate 71 Respiratory Rate 12 Blood Pressure 86/54 L 86/52 L Pulse Oximetry 91 Oxygen Delivery Method Oxygen Flow Rate 03/06/25 00:00 Pulse Rate 69 Respiratory Rate 15 Blood Pressure Pulse Oximetry 92 Oxygen Delivery Method Oxygen Flow Rate MDM - SOB/Dyspnea Lab Data 03/05/25 15:30 03/05/25 15:30 Labs: Lab Results 03/05/25 Range/Units 15:30 WBC 6.2 (4.5-11.0) X10^3/uL RBC 4.79 (4.0-5.2) X10^6/uL Hgb 9.1 L (12.0-16.0) g/dL Hct 30.0 L (36-46) % MCV 62.6 L (80-100) fL MCH 19.1 L (26-34) PG MCHC 30.5 (30-36) % RDW 23.4 H (11.6-14.8) % Plt Count 127 L (150-400) X10^3/uL Neut % (Auto) 72.9 (50-75) % Lymph % (Auto) 11.6 L (25-40) % Thayer % (Auto) 11.1 (3-14) % Eos % (Auto) 3.3 (2-4) % Baso % (Auto) 1.1 (0-2) % Neut # (Auto) 4500 (4711-5998) /uL Lymph # (Auto) 700 L (2462-0012) /uL Thayer # (Auto) 700 (0-900) /uL Eos # (Auto) 200 (0-450) /uL Baso # (Auto) 100 (0-100) /uL RBC Morphology See below Hypochromasia 1+ H Anisocytosis 2+ H Microcytosis 2+ H Ovalocytes 1+ H PT 13.9 H (9.4-12.5) SECONDS INR 1.2 (0.9-1.3) APTT 51 H (25.1-36.5) SECONDS Sodium 131 L (137-145) mmol/L Potassium 4.4 (3.4-5.1) mmol/L Chloride 100 (98-107) mmol/L Carbon Dioxide 25 (22-32) mmol/L BUN 17 (7-17) mg/dL Creatinine 0.66 (0.52-1.04) mg/dL Estimated GFR > 60 (>60) mL/min BUN/Creatinine Ratio 25.8 H (6-22) Glucose 113 H (80-110) mg/dL Lactate 1.1 (0.7-2.1) mmol/L Calcium 8.5 (8.4-10.2) mg/dL Magnesium 1.7 (1.6-2.3) mg/dL Total Bilirubin 1.4 H (0.2-1.3) mg/dL AST 32 (14-36) IU/L ALT 15 (<35) IU/L Alkaline Phosphatase 89 (38-126) U/L Total Creatine Kinase 48 (30-135) U/L Troponin I < 0.012 (0.01-0.034) ng/mL NT-Pro-B Natriuret Pep 970 H (<125) pg/mL Total Protein 6.9 (6.3-8.2) g/dL Albumin 3.7 (3.5-5.0) g/dL Globulin 3.2 (1.7-4.1) g/dL Albumin/Globulin Ratio 1.2 (1.0-2.8) Lipase 87 (23-300) U/L Procalcitonin 0.099 (<0.5) ng/mL MDM Narrative Medical decision making narrative: White count of 6.2 hemoglobin is 9.1 appears consistent with priors platelets are 127. Coags show an INR 1.2 . Chemistry shows a sodium 131 was 135 earlier this month glucose is 113 electrolytes are otherwise appropriate lactate is 1.1 bilirubin is 1.4, troponins less than 0.012 with a BNP of 970. Procalcitonin 0.099. Chest x-ray shows recurrent very large right pleural effusion with mediastinal shift from [id number] to a mild degree Port-A-Cath normal physician from right-sided approach with a somewhat leftward deviated course due to the mediastinal shift noted fusion is equivalent to that present on 02/04/2025. Repeat chest x-ray post thoracentesis shows no right pneumothorax status post thoracentesis decreased size of previous slight right pleural effusion [id number] residual fusion some loculated and Taylor. Patient does request a dose of her home medication. Patient is agreeable for thoracentesis. Discussed risks versus benefits. She was requiring 1 L of O2 which has not her normal. She has talked to her oncology team she was follow up on the they will discuss PleurX catheter she was also had 1 thoracentesis after the 04 of February with her oncology team. With Dr. Steward she had 7 L she has a picture to approve it. She had 2 L with her oncology team. Patient had 3 L removed here has tolerated well repeat chest x-ray shows no pneumothorax. Patient's blood pressure did drop she states this happens after each thoracentesis. She denies any other symptoms otherwise. She can not quite low so was given albumin here in the department. She has weaned to room air. We will monitor patient if she was continuing to feel improved we will discharge home. Patient's blood pressure has continued to improve. She feels good. She was ambulate in the department by several lengths and feels comfortable with discharge. Discharge Plan Departure Patient Disposition: Home Clinical Impression: Large pleural effusion, S/P thoracentesis Instructions: DI for Pleural Effusion Activity Restrictions/Additional Instructions: Follow up with your oncologist, talk with them you may need frequent thoracentesis until you can have a more permanent catheter placed. You had 3 L removed on thoracentesis today. I would recommend that you use your incentive spirometer at home that you were given at your last visit here in the emergency department on the 04 of February. Try to use this hourly while awake for the next several days. I hope you continue to feel improved but if you have worsening symptoms please return to the emergency department. Prescriptions: No Action prochlorperazine maleate 10 mg tablet 10 mg PO Q8H PRN (Reason: nausea and vomiting) Qty: 14 0RF prochlorperazine 25 mg suppository 25 mg UT Q12H PRN (Reason: nausea and vomiting) Qty: 12 0RF morphine [MS Contin] 15 mg tablet extended release 30 mg PO BEDTIME oxycodone 10 mg tablet 10 mg PO Q4H PRN (Reason: severe pain) nadolol 20 mg tablet 20 mg PO DAILY furosemide 40 mg tablet 40 mg PO DAILY spironolactone 100 mg tablet 100 mg PO DAILY amoxicillin-pot clavulanate 875-125 mg tablet 1 tab PO BID Qty: 14 0RF albuterol sulfate [Ventolin HFA] 90 mcg/actuation HFA aerosol inhaler 1 inh inhalation QID PRN (Reason: shortness of breath or wheezing) Qty: 6.7 0RF metoclopramide HCl 10 mg tablet 10 mg PO Q6H PRN (Reason: nausea and vomiting) Qty: 30 0RF Stand Alone Forms: Patient Portal/API/Survey
--- NOTE | 2025-03-05 18:46 | DI.US.S_ITS ---
PROCEDURE: US CHEST COMPARISON: None. INDICATIONS: large pleural effusion FINDINGS: There is a large right pleural effusion. IMPRESSION: Large right pleural effusion. The ultrasound was used for marking in preparation for thoracentesis. Dictated by: Richard Cooney M.D. on 03/05/2025 at 19:41 Approved by: Richard Cooney M.D. on 03/05/2025 at 19:41
[2025-03-05] MEDS: OXYCODONE IR 5 MG TABLET 10 MG PO (19:01)
[2025-03-05] MEDS: ACETAMINOPHEN 325 MG TABLET 975 MG PO (19:05)
[2025-03-05] MEDS: LIDOCAINE 2% INJ SDV 5ML 2 ML INJ (19:52)
--- NOTE | 2025-03-05 20:28 | DI.RAD.S_ITS ---
PROCEDURE: XR CHEST 1V INDICATIONS: post thoracentesis TECHNIQUE: One view of the chest was acquired. COMPARISON: [facility], CR, XR CHEST 1V, 03/05/2025, 14:54. FINDINGS: Surgical changes and devices: Right IJ MediPort. Lungs and pleura: Decreased size of previous large right pleural effusion small to moderate residual effusion, some loculated in the fissure. No pneumothorax. Aerated left lung. Mediastinum: Mediastinal contours appear normal. Heart size is normal. Stable. Bones and chest wall: No suspicious bony lesions. Overlying soft tissues appear unremarkable. IMPRESSION: No right pneumothorax post thoracentesis. Decreased size of right pleural effusion. Dictated by: Tracey Torres M.D. on 03/05/2025 at 21:56 Approved by: Tracey Torres M.D. on 03/05/2025 at 21:57
[2025-03-05] MEDS: SODIUM CHLORIDE 0.9% 500 ML 1000 ML IV (21:39)
[2025-03-05] MEDS: ALBUMIN HUMAN 12.5 GM/50 ML VIAL IV (22:52)
[2025-03-06] VITALS (8 sets, daily range): BP systolic 81–88; BP diastolic 48–52; PULSE 69–79; RESP 12–31; O2SAT 91–93
--- NOTE | 2025-03-06 00:04 | PC.NURSE ---
Pt given 1/2 turkey sandwich, vanilla pudding, with ice water.
--- NOTE | 2025-03-06 00:38 | PC.NURSE ---
Pt walked around nursing station maintained oxygen from 90-93%.
== END 2025-03-06 01:21 | disposition home or self-care (01) ==
PROVIDERS: Family Medicine; Emergency Provider Emergency Medicine
DX: J90 Pleural effusion, not elsewhere classified (principal); C76.0 Malignant neoplasm of head, face and neck
CPT/HCPCS: 32554; 36415; 71045; 76604; 80053; 82550; 83605; 83690; 83735; 83880; 84145; 84484; 85025; 85610; 85730; 96361; 96365; 99284; P9041

== ENCOUNTER 2025-03-15 17:25 | Emergency (ER) | payer MEDICARE, SELFPAY ==
[2024-10-04 01:32] VITALS: BMI 24.3
[2025-03-15] VITALS (10 sets, daily range): BP systolic 112–127; BP diastolic 62–84; PULSE 80–90; RESP 12–23; TEMP 36.9; O2SAT 91–98; BMI 20.2
--- NOTE | 2025-03-15 17:40 | DI.RAD.S_ITS ---
PROCEDURE: XR CHEST 1V INDICATIONS: Shortness of breath TECHNIQUE: One view of the chest was acquired. COMPARISON: [facility], CR, XR CHEST 1V, 03/05/2025, 21:01. [facility], CR, XR CHEST 1V, 03/05/2025, 14:54. FINDINGS: Surgical changes and devices: Right chest wall Port-A-Cath. Lungs and pleura: Large right-sided pleural effusion. Prominent interstitial markings in the right lung field, likely representing edema. Left is grossly clear. Mediastinum: Mediastinal contours appear normal. Heart size is normal. Bones and chest wall: No suspicious bony lesions. Overlying soft tissues appear unremarkable. IMPRESSION: Large right pleural effusion is increased compared to prior. Dictated by: Jefferson Way M.D. on 03/15/2025 at 18:28 Approved by: Jefferson Way M.D. on 03/15/2025 at 18:29
--- NOTE | 2025-03-15 17:46 | EKG_ITS ---
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
[2025-03-15 18:35] LABS: Add Manual Diff / Slide Review NO; Basophils Absolute Auto 100 /uL (0-100); Basophils Percent Auto 1.3 % (0-2); Eosinophils Absolute Auto 100 /uL (0-450); Eosinophils Percent Auto 2.8 % (2-4); Hematocrit 27.2 % (36-46); Hemoglobin 8.2 g/dL (12.0-16.0); Lymphocytes Absolute Auto 400 /uL (1100-4500); Lymphocytes Percent Auto 7.5 % (25-40); Mean Corpuscular HGB Conc 30.2 % (30-36); Mean Corpuscular Hemoglobin 19.1 PG (26-34); Mean Corpuscular Volume 63.3 fL (80-100); Monocytes Absolute Auto 500 /uL (0-900); Monocytes Percent Auto 8.7 % (3-14); Neutrophils Absolute Auto 4100 /uL (1500-7000); Neutrophils Percent Auto 79.7 % (50-75); Platelet Count 80 X10^3/uL (150-400); White Blood Cell Count 5.2 X10^3/uL (4.5-11.0)
[2025-03-15 18:38] LABS: INR 1.3 (0.9-1.3); Prothrombin Time 14.6 SECONDS (9.4-12.5)
[2025-03-15 18:41] LABS: Lactate (Lactic Acid) 1.5 mmol/L (0.7-2.1)
[2025-03-15 18:42] LABS: Alanine Aminotransferase 15 IU/L (<35); Albumin 3.4 g/dL (3.5-5.0); Alkaline Phosphatase 74 U/L (38-126); Aspartate Aminotransferase 29 IU/L (14-36); BUN Creatinine Ratio 21.1 (6-22); Bilirubin Total 0.8 mg/dL (0.2-1.3); Blood Urea Nitrogen 12 mg/dL (7-17); Calcium 8.4 mg/dL (8.4-10.2); Carbon Dioxide 27 mmol/L (22-32); Chloride 102 mmol/L (98-107); Estimated Glomerular Filt Rate > 60 mL/min (>60); Globulin 3.4 g/dL (1.7-4.1); Glucose 132 mg/dL (80-110); HEMOLYSIS < 15 (0-50); Potassium 4.1 mmol/L (3.4-5.1); Sodium 133 mmol/L (137-145); Total Protein 6.8 g/dL (6.3-8.2)
[2025-03-15 18:54] LABS: NT-proBNP (BNP-Adult 18+) 877 pg/mL (<125); Troponin I < 0.012 ng/mL (0.01-0.034)
--- NOTE | 2025-03-15 18:55 | DI.US.S_ITS ---
PROCEDURE: US CHEST COMPARISON: [facility], , US CHEST, 03/05/2025, 19:16. INDICATIONS: ROHAN FOR THORA FINDINGS: Limited ultrasound of the right chest was performed to identify a suitable pocket of fluid for thoracentesis. An appropriate location was marked on the skin. IMPRESSION: Imaging obtained to rohan pleural fluid for thoracentesis Dictated by: Scott Mckeon M.D. on 03/15/2025 at 19:42 Approved by: Scott Mckeon M.D. on 03/15/2025 at 19:43
[2025-03-15] MEDS: OXYCODONE IR 5 MG TABLET 10 MG PO (19:21)
[2025-03-15] MEDS: ACETAMINOPHEN 325 MG TABLET 650 MG PO (19:21)
[2025-03-15] MEDS: LIDOCAINE 1% 20 ML INJ (19:55)
--- NOTE | 2025-03-15 20:21 | DI.RAD.S_ITS ---
PROCEDURE: XR CHEST 2V INDICATIONS: post thoracentesis, right side TECHNIQUE: 2 views of the chest were acquired. COMPARISON: [facility], CR, XR CHEST 1V, 03/15/2025, 17:51. [facility], CR, XR CHEST 2V, 08/21/2024, 13:08. FINDINGS: Surgical changes and devices: Right chest Port-A-Cath in stable position.. Lungs and pleura: Small right pleural effusion with right basilar atelectasis or consolidation. Pleural effusion has decreased when compared to the prior exam. No pneumothorax. Mediastinum: Mediastinal contours are normal. Heart size is normal. Bones and chest wall: No suspicious bony abnormalities. Soft tissues appear unremarkable. IMPRESSION: Status post thoracentesis with decreased right pleural effusion. No pneumothorax. Approved by: Tomy Covington M.D. on 03/15/2025 at 20:39
--- NOTE | 2025-03-15 21:02 | ED_ITS ---
HPI - SOB/Dyspnea General Chief Complaint: Shortness of Breath/Dyspnea Stated Complaint: SOB Source: patient Mode of arrival: Ambulatory Limitations: no limitations History of Present Illness HPI Narrative: \Patient is a 69-year-old female with metastatic cancer.? She was here frequently for thoracentesis.? She was scheduled to have a PleurX catheter placed next week at [facility].? She reports increasing shortness of breath.? Currently O2 sat 88% on room air. Related Data Home Medications Medication Instructions Recorded Confirmed furosemide 40 mg tablet 40 mg PO DAILY 10/04/24 10/04/24 morphine 15 mg tablet,extended 30 mg PO BEDTIME 10/04/24 10/04/24 release (MS Contin) nadolol 20 mg tablet 20 mg PO DAILY 10/04/24 10/04/24 oxycodone 10 mg tablet 10 mg PO Q4H PRN severe pain 10/04/24 10/04/24 spironolactone 100 mg tablet 100 mg PO DAILY 10/04/24 10/04/24 Previous Rx's Medication Instructions Recorded prochlorperazine 25 mg rectal 25 mg OR Q12H PRN nausea and 06/29/24 suppository vomiting #12 ea prochlorperazine maleate 10 mg 10 mg PO Q8H PRN nausea and 06/29/24 tablet vomiting #14 tabs albuterol sulfate 90 mcg/actuation 1 inh inhalation QID PRN shortness 08/21/24 aerosol inhaler (Ventolin HFA) of breath or wheezing #6.7 grams metoclopramide HCl 10 mg tablet 10 mg PO Q6H PRN nausea and 12/26/24 vomiting #30 tabs amoxicillin 875 mg-potassium 1 tab PO BID #14 tabs 01/29/25 clavulanate 125 mg tablet Allergies Allergy/AdvReac Type Severity Reaction Status Date / Time No Known Allergies Allergy Verified 12/26/24 09:35 Patient History Medical History 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 Normocephalic. EYES: Pupils equal round and reactive. Extraocular motions intact. No scleral icterus. No injection or drainage. ENT: Nose without bleeding, purulent drainage. Throat without erythema, tonsillar hypertrophy or exudate. Airway patent. NECK: Trachea midline. Non tender CARDIOVASCULAR: Regular rate and rhythm without murmurs, gallops, or rubs. RESPIRATORY decreased breath sounds on the right.? GASTROINTESTINAL: Abdomen soft, non-tender, nondistended. EXTREMITIES: No edema or joint tenderness. BACK: Nontender without deformity or crepitance. No flank tenderness. NEURO: AOx3. SKIN: No rash or erythema of visible areas Procedures [facility] [place] Procedure Name of Procedure: thoracentesis Technique/Description of procedure performed: PROCEDURE: Thoracentesis, U/S guided. INDICATION: Large pleural effusion, symptomatic and diagnositic [employer]: Dr. Valerio CONSENT: Consent was obtained from the patient prior to the procedure. Indications, risks, and benefits were explained at length. PROCEDURE SUMMARY: A time out was performed. The patient was prepped and draped in a sterile manner using chlorhexidine scrub after the appropriate level was confirmed by ultrasound. 1% lidocaine was used to numb the region. Needle was advanced without any blood back.? [Clear yellow] fluid was aspirated? The patient had 3000mL of? fluid removed. No immediate complications were noted during the procedure.? A post-procedure xray was ordered.? The fluid will be sent for studies. ESTIMATED BLOOD LOSS: 5m Complications: None Chest xray-no pneumothorax Course Orders Ordered: ED Orders 03/15/25 18:55 US chest Stat 03/15/25 20:21 Chest [XR chest 2V] Stat Discontinued Medications Acetaminophen (Acetaminophen 325 Mg Tablet) 650 mg PO NOW ONE Stop: 03/15/25 19:14 Last Admin: 03/15/25 19:21 Dose: 650 mg Documented By: ELEANOR Lidocaine HCl (Lidocaine 1% 20 Ml) 20 ml INJ INTRA-OP ONE Stop: 03/15/25 19:33 Last Admin: 03/15/25 19:55 Dose: 20 ml Documented By: ELEANOR Oxycodone HCl (Oxycodone Ir 5 Mg Tablet) 10 mg PO NOW ONE Stop: 03/15/25 19:15 Last Admin: 03/15/25 19:21 Dose: 10 mg Documented By: ELEANOR Vital Signs Vital signs: Vital Signs - 8 hr 03/15/25 19:45 03/15/25 19:45 03/15/25 20:00 Pulse Rate 88 Respiratory Rate 17 Blood Pressure 119/65 115/64 Pulse Oximetry 97 03/15/25 20:00 03/15/25 20:15 03/15/25 20:15 Pulse Rate 83 82 Respiratory Rate 17 12 Blood Pressure 127/68 Pulse Oximetry 97 98 03/15/25 20:34 Pulse Rate 80 Respiratory Rate 23 Blood Pressure Pulse Oximetry MDM - SOB/Dyspnea Lab Data 03/15/25 18:18 03/15/25 18:18 Labs: Lab Results 03/15/25 Range/Units 18:18 WBC 5.2 (4.5-11.0) X10^3/uL RBC 4.30 (4.0-5.2) X10^6/uL Hgb 8.2 L (12.0-16.0) g/dL Hct 27.2 L (36-46) % MCV 63.3 L (80-100) fL MCH 19.1 L (26-34) PG MCHC 30.2 (30-36) % RDW 22.0 H (11.6-14.8) % Plt Count 80 L (150-400) X10^3/uL Neut % (Auto) 79.7 H (50-75) % Lymph % (Auto) 7.5 L (25-40) % Emanuel % (Auto) 8.7 (3-14) % Eos % (Auto) 2.8 (2-4) % Baso % (Auto) 1.3 (0-2) % Neut # (Auto) 4100 (6936-6732) /uL Lymph # (Auto) 400 L (2470-9965) /uL Emanuel # (Auto) 500 (0-900) /uL Eos # (Auto) 100 (0-450) /uL Baso # (Auto) 100 (0-100) /uL Nucleated RBCs Cancelled Hypersegmented Neuts Cancelled Hypogranular Neuts Cancelled Reactive Lymphocytes Cancelled Smudge Cells Cancelled Other Cell Type Cancelled Toxic Granulation Cancelled Toxic Vacuolation Cancelled Dohle Bodies Cancelled Jese Rods Cancelled WBC Morphology Comment Cancelled Platelet Estimate Cancelled Clumped Platelets Cancelled Plt Morphology Comment Cancelled RBC Morphology Cancelled Dimorphic RBCs Cancelled Polychromasia Cancelled Hypochromasia Cancelled Poikilocytosis Cancelled Basophilic Stippling Cancelled Anisocytosis Cancelled Microcytosis Cancelled Macrocytosis Cancelled Spherocytes Cancelled Pappenheimer Bodies Cancelled Sickle Cells Cancelled Target Cells Cancelled Tear Drop Cells Cancelled Ovalocytes Cancelled Stomatocytes Cancelled Helmet Cells Cancelled Frank-St[place] Bodies Cancelled [place] Rings Cancelled Froylan Cells Cancelled Acanthocytes (Spur) Cancelled Rouleaux Cancelled Schistocytes Cancelled PT 14.6 H (9.4-12.5) SECONDS INR 1.3 (0.9-1.3) Sodium 133 L (137-145) mmol/L Potassium 4.1 (3.4-5.1) mmol/L Chloride 102 (98-107) mmol/L Carbon Dioxide 27 (22-32) mmol/L BUN 12 (7-17) mg/dL Creatinine 0.57 (0.52-1.04) mg/dL Estimated GFR > 60 (>60) mL/min BUN/Creatinine Ratio 21.1 (6-22) Glucose 132 H (80-110) mg/dL Lactate 1.5 (0.7-2.1) mmol/L Calcium 8.4 (8.4-10.2) mg/dL Total Bilirubin 0.8 (0.2-1.3) mg/dL AST 29 (14-36) IU/L ALT 15 (<35) IU/L Alkaline Phosphatase 74 (38-126) U/L Troponin I < 0.012 (0.01-0.034) ng/mL NT-Pro-B Natriuret Pep 877 H (<125) pg/mL Total Protein 6.8 (6.3-8.2) g/dL Albumin 3.4 L (3.5-5.0) g/dL Globulin 3.4 (1.7-4.1) g/dL Albumin/Globulin Ratio 1.0 (1.0-2.8) Imaging Data Chest x-ray: Radiologist's Impression: PROCEDURE: XR CHEST 1V INDICATIONS: Shortness of breath TECHNIQUE: One view of the chest was acquired. COMPARISON: [facility], , XR CHEST 1V, 03/05/2025, 21:01. [facility], , XR CHEST 1V, 03/05/2025, 14:54. FINDINGS: Surgical changes and devices: Right chest wall Port-A-Cath. Lungs and pleura: Large right-sided pleural effusion. Prominent interstitial markings in the right lung field, likely representing edema. Left is grossly clear. Mediastinum: Mediastinal contours appear normal. Heart size is normal. Bones and chest wall: No suspicious bony lesions. Overlying soft tissues appear unremarkable. IMPRESSION: Large right pleural effusion is increased compared to prior. Dictated by: Jefferson Way M.D. on 03/15/2025 at 18:28 Approved by: Jefferson Way M.D. on 03/15/2025 at 18:29 US thora: Radiologist's Impression: PROCEDURE:US CHEST COMPARISON:Located within [facility], US CHEST, 03/05/2025, 19:16. INDICATIONS:NATASHA FOR THORA FINDINGS:Limited ultrasound of the right chest was performed to identify a suitable pocket of fluid for thoracentesis. An appropriate location was marked on the skin. IMPRESSION: Imaging obtained to natasha pleural fluid for thoracentesis Dictated by: Scott Mckeon M.D. on 03/15/2025 at 19:42 CXR #2: Radiologist's Impression: PROCEDURE: XR CHEST 2V INDICATIONS: post thoracentesis, right side TECHNIQUE: 2 views of the chest were acquired. COMPARISON: [facility], , XR CHEST 1V, 03/15/2025, 17:51. [facility], XR CHEST 2V, 08/21/2024, 13:08. FINDINGS: Surgical changes and devices: Right chest Port-A-Cath in stable position.. Lungs and pleura: Small right pleural effusion with right basilar atelectasis or consolidation. Pleural effusion has decreased when compared to the prior exam. No pneumothorax. Mediastinum: Mediastinal contours are normal. Heart size is normal. Bones and chest wall: No suspicious bony abnormalities. Soft tissues appear unremarkable. IMPRESSION: Status post thoracentesis with decreased right pleural effusion. No pneumothorax. Approved by: Tomy Covington M.D. on 03/15/2025 at 20:39 ECG Data Attestation: I personally reviewed and interpreted this ECG as follows: Interpretation: Normal sinus rhythm rate 91 OR interval 130 QRS [address] changes low- voltage MDM Narrative Medical decision making narrative: MDM: Patient is a melissa 69-year-old female presenting today with increasing shortness of breath.? O2 did go down to the% on room air.? She is found to have a recurrent right-sided pleural effusion secondary to malignancy.? Of a she tolerated thoracentesis well.? 3 L was taken off.? Blood work is overall reassuring she does have mild thrombocytopenia with platelets of 80.? Discussion with her increased risk of bleeding with low platelets.? Agreed to procedure.? Tolerated procedure well without complication. Repeat chest x-ray show any evidence of pneumothorax.? She was no longer requiring oxygen.? She feels much better.? She has close outpatient follow up with [facility] supposed to be getting a PleurX catheter pursue. Patient no longer requiring oxygen 3 L were removed Blood work has been reviewed: CBC: Hemoglobin 8 0.2/27.2 previously 9.1/30, platelets 80 previously 127 PT 14.6 INR 1.3 CMP sodium stable at 133 no other electrolyte abnormality no RAVEN glucose 132 lactate 1.5 Troponin negative BNP 877 Chest x-ray is reviewed which showed a pleural or Herrera with has a 2nd 1 showing resolved effusion and no pneumothorax EKG reviewed no ischemia Discharge Plan Departure Patient Disposition: Home Clinical Impression: Recurrent right pleural effusion Prescriptions: No Action prochlorperazine maleate 10 mg tablet 10 mg PO Q8H PRN (Reason: nausea and vomiting) Qty: 14 0RF prochlorperazine 25 mg suppository 25 mg OR Q12H PRN (Reason: nausea and vomiting) Qty: 12 0RF morphine [MS Contin] 15 mg tablet extended release 30 mg PO BEDTIME oxycodone 10 mg tablet 10 mg PO Q4H PRN (Reason: severe pain) nadolol 20 mg tablet 20 mg PO DAILY furosemide 40 mg tablet 40 mg PO DAILY spironolactone 100 mg tablet 100 mg PO DAILY amoxicillin-pot clavulanate 875-125 mg tablet 1 tab PO BID Qty: 14 0RF albuterol sulfate [Ventolin HFA] 90 mcg/actuation HFA aerosol inhaler 1 inh inhalation QID PRN (Reason: shortness of breath or wheezing) Qty: 6.7 0RF metoclopramide HCl 10 mg tablet 10 mg PO Q6H PRN (Reason: nausea and vomiting) Qty: 30 0RF Stand Alone Forms: Patient Portal/API/Survey
== END 2025-03-15 21:09 | disposition home or self-care (01) ==
PROVIDERS: Emergency Medicine; Emergency Provider Emergency Medicine
DX: C76.0 Malignant neoplasm of head, face and neck (principal); J91.0 Malignant pleural effusion; D69.6 Thrombocytopenia, unspecified; Z87.891 Personal history of nicotine dependence
CPT/HCPCS: 32554; 36415; 71045; 71046; 76604; 80053; 83605; 83880; 84484; 85025; 85610; 93005; 93010; 99284

== ENCOUNTER 2025-04-12 16:12 | Emergency (ER) | payer MEDICARE, SELFPAY ==
[2024-10-04 01:32] VITALS: BMI 24.3
[2025-04-12] VITALS (12 sets, daily range): BP systolic 99–147; BP diastolic 55–71; PULSE 66–86; RESP 16–32; TEMP 36.4–36.9; O2SAT 97–100; BMI 19.4
--- NOTE | 2025-04-12 16:25 | EKG_ITS ---
[id number], [place] [address] Test Date: 2025-04-12 Pat Name: Lo Aburto Department: Room: Gender: Female [facility] Supervisor: BEL : 1955 Requested By: Order Number: [id number] Reading MD: Fei Johnson MD Measurements Intervals [place] Rate: 68 P: DC: 150 QRS: 48 QRSD: 82 T: 13 QT: 458 QTc: 487 Interpretive Statements Normal sinus rhythm Low voltage QRS Nonspecific ST abnormality Electronically Signed On 04-12-2025 17:02:18 PDT by Fei Johnson MD
--- NOTE | 2025-04-12 16:28 | DI.CT.S_ITS ---
PROCEDURE: CT CHEST ABD PEL W CON INDICATIONS: Static cancer severe abdominal pain TECHNIQUE: After the administration of intravenous contrast, 5 mm thick sections acquired from the lung apices to the symphysis. 5 mm coronal and sagittal reformats were performed, with additional 7 mm MIP reformats through the lungs. For radiation dose reduction, the following was used: automated exposure control, adjustment of mA and/or kV according to patient size. COMPARISON: None. FINDINGS: Image quality: Excellent. CHEST: Lower Neck: No enlarged lymph nodes. Thyroid: Heterogeneous right lower pole of the thyroid. Left lobe is normal. Axillae: No enlarged lymph nodes. Chest Wall: Unremarkable. Lungs and Pleura: Large, dependently layering right pleural effusion. No pneumothorax. Atelectatic change in the lingula. No acute ground-glass opacities or suspicious masses. Heart: Heart size is normal. No pericardial effusion. Moderate coronary artery calcification. Thoracic Vessels: The aorta and pulmonary arteries demonstrate normal size. Mediastinum and Sanaz: Mildly prominent precarinal and right hilar lymph nodes. Esophagus: No wall thickening. No hiatal hernia. ABDOMEN: Liver: Cirrhotic liver morphology. Cystic hypodensity centrally in the left hepatic lobe. Gallbladder: Distended, but without calcified stones or visible wall thickening. Biliary ducts: Mild biliary prominence. Pancreas: No ductal dilation. Spleen: Significant splenomegaly measuring 19.3 cm in length and heterogeneous parenchymal attenuation Adrenal Glands: No definite renal mass. Thickened left adrenal limbs, probably due to adjacent vascular hypertrophy. Kidneys and Ureters: Symmetric enhancement. No nephrolithiasis or hydronephrosis. No visible mass or cyst requiring follow up. No hydroureter. Stomach and Bowel: Stomach and small bowel are normal limits. No small bowel obstruction. Mildly increased quantity of solid stool throughout the colon. Diverticula throughout the sigmoid. No acute pericolonic inflammatory change. Peritoneum: There is a small amount of ascites present, particularly perihepatic and perisplenic. Small amount in the pelvis. Ventral Wall: No significant ventral hernia. Abdominal Nodes: No retroperitoneal or mesenteric adenopathy by size criteria. Vessels: The portal vein is patent. There is mixing artifact or thrombus at the lisa splenic confluence. Extensive left upper quadrant varices and pelvic varices. Abdominal aorta is normal caliber. PELVIS: Pelvic Organs: Anteverted uterus with extensive periuterine vasculature. Engorged gonadal veins. Bladder: No stones or wall thickening. Pelvic Nodes: No enlarged lymph nodes. Miscellaneous: No inguinal hernias are seen. Bones: No aggressive osseous abnormality. IMPRESSION: Significant splenomegaly, but stable compared to an ultrasound dated 12/23/24. Cirrhotic liver and other findings consistent with portal hypertension. Dependent large right pleural effusion. Sigmoid diverticulosis without acute diverticulitis. Dictated by: Tracey Torres M.D. on 04/12/2025 at 17:59 Approved by: Tracey Torres M.D. on 04/12/2025 at 18:07
[2025-04-12] MEDS: PROCHLORPERAZINE 10 MG/2 ML VIAL IV (16:38)
[2025-04-12] MEDS: HYDROMORPHONE 1 MG INJ IV (16:38)
[2025-04-12] MEDS: SODIUM CHLORIDE 0.9% 1,000 ML 1000 ML IV (16:38)
[2025-04-12 17:05] LABS: Add Manual Diff / Slide Review NO; Basophils Absolute Auto 0 /uL (0-100); Basophils Percent Auto 0.3 % (0-2); Eosinophils Absolute Auto 100 /uL (0-450); Hematocrit 26.8 % (36-46); Hemoglobin 8.2 g/dL (12.0-16.0); Lymphocytes Absolute Auto 400 /uL (1100-4500); Lymphocytes Percent Auto 7.3 % (25-40); Mean Corpuscular HGB Conc 30.7 % (30-36); Mean Corpuscular Volume 61.9 fL (80-100); Monocytes Absolute Auto 300 /uL (0-900); Monocytes Percent Auto 4.3 % (3-14); Neutrophils Absolute Auto 5100 /uL (1500-7000); Neutrophils Percent Auto 87.1 % (50-75); Platelet Count 90 X10^3/uL (150-400); Red Blood Cell Count 4.33 X10^6/uL (4.0-5.2); Red Cell Distribution Width 19.6 % (11.6-14.8); White Blood Cell Count 5.8 X10^3/uL (4.5-11.0)
[2025-04-12 17:06] LABS: Alanine Aminotransferase 19 IU/L (<35); Albumin Globulin Ratio 1.1 (1.0-2.8); Alkaline Phosphatase 85 U/L (38-126); Aspartate Aminotransferase 38 IU/L (14-36); BUN Creatinine Ratio 36.2 (6-22); Blood Urea Nitrogen 21 mg/dL (7-17); Calcium 8.5 mg/dL (8.4-10.2); Carbon Dioxide 21 mmol/L (22-32); Chloride 106 mmol/L (98-107); Estimated Glomerular Filt Rate > 60 mL/min (>60); Globulin 3.7 g/dL (1.7-4.1); Glucose 110 mg/dL (70-99); HEMOLYSIS < 15 (0-50); Lipase 181 U/L (23-300); Potassium 3.7 mmol/L (3.4-5.1); Sodium 137 mmol/L (137-145); Total Protein 7.7 g/dL (6.3-8.2)
[2025-04-12 17:07] LABS: Lactate (Lactic Acid) 1.4 mmol/L (0.7-2.1)
[2025-04-12 17:45] LABS: Ictotest Urine Negative (Negative)
--- NOTE | 2025-04-12 19:23 | ED.ABDPAIN ---
HPI - Abdominal Pain General Chief Complaint: Abdominal Pain Stated Complaint: Abdominal pain Time Seen by Provider: 04/12/25 18:32 Source: patient and EMS Mode of arrival: EMS History of Present Illness HPI narrative: 69-year-old female with metastatic cancer, recurrent right-sided pleural effusion status post numerous thoracentesis, does not recall any attempt at pleurodesis to prevent effusions, no PleurX catheter in place, complains today of supraumbilical abdominal pain. No fevers or chills. She denies chest pain. She denies sensation of shortness of breath. Denies any local trauma or injury, no new activities. Denies nausea or vomiting. Denies loose stools. Denies black or red stools. Related Data Home Medications Medication Instructions Recorded Confirmed furosemide 40 mg tablet 40 mg PO DAILY 10/04/24 10/04/24 morphine 15 mg tablet,extended 30 mg PO BEDTIME 10/04/24 10/04/24 release (MS Contin) nadolol 20 mg tablet 20 mg PO DAILY 10/04/24 10/04/24 oxycodone 10 mg tablet 10 mg PO Q4H PRN severe pain 10/04/24 10/04/24 spironolactone 100 mg tablet 100 mg PO DAILY 10/04/24 10/04/24 Previous Rx's Medication Instructions Recorded prochlorperazine 25 mg rectal 25 mg DC Q12H PRN nausea and 06/29/24 suppository vomiting #12 ea prochlorperazine maleate 10 mg 10 mg PO Q8H PRN nausea and 06/29/24 tablet vomiting #14 tabs albuterol sulfate 90 mcg/actuation 1 inh inhalation QID PRN shortness 08/21/24 aerosol inhaler (Ventolin HFA) of breath or wheezing #6.7 grams metoclopramide HCl 10 mg tablet 10 mg PO Q6H PRN nausea and 12/26/24 vomiting #30 tabs amoxicillin 875 mg-potassium 1 tab PO BID #14 tabs 01/29/25 clavulanate 125 mg tablet omeprazole 20 mg capsule,delayed 20 mg PO DAILY upper abdominal 04/12/25 release pain 30 days #30 caps Allergies Allergy/AdvReac Type Severity Reaction Status Date / Time No Known Allergies Allergy Verified 04/12/25 16:37 Patient History Medical History 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 HEAD: Atraumatic. Normocephalic. EYES: Pupils equal round and reactive. Extraocular motions intact. No scleral icterus. No injection or drainage. ENT: Nose without bleeding, purulent drainage. Throat without erythema, tonsillar hypertrophy or exudate. Airway patent. NECK: Trachea midline. Non tender CARDIOVASCULAR: Regular rate and rhythm without murmurs, gallops, or rubs. RESPIRATORY: Decreased breath sounds on right base, no respiratory distress, speaking in full sentences, no retractions. No wheezes, rales, or rhonchi. GASTROINTESTINAL: Abdomen with mild epigastric area discomfort, nondistended, normal bowel tones without rushes or tinkles. EXTREMITIES: No edema or joint tenderness. BACK: Nontender without deformity or crepitance. No flank tenderness. NEURO: AOx3. Motor functions grossly nonfocal. SKIN: No rash or erythema of visible areas Initial Vital Signs Initial Vital Signs: Vital Signs Pulse Rate 67 04/12/25 16:19 Pulse Oximetry 100 04/12/25 16:19 Course Orders Ordered: ED Orders 04/12/25 16:28 CT chest abd pel w con Stat 04/12/25 16:29 EKG-12 Lead Stat 04/12/25 16:45 Complete Blood Count AUTO DIFF Stat Comprehensive Metabolic Panel Stat Lactate (Lactic Acid) Stat Lipase Stat 04/12/25 17:30 Ictotest Urine Stat Discontinued Medications Hydromorphone HCl (Hydromorphone 1 Mg Inj) 1 mg IV Q15MIN PRN PRN Reason: Pain, Severe (7-10) Last Admin: 04/12/25 16:38 Dose: 1 mg Documented By: BRITNI Sodium Chloride (Normal Saline 0.9%) 1,000 mls @ 1,000 mls/hr IV BOLUS ONE Stop: 04/12/25 17:27 Last Infusion: 04/12/25 18:11 Dose: Infused Documented By: Admin: 04/12/25 16:38 Dose: 1,000 mls/hr Documented By: BRITNI Prochlorperazine (Prochlorperazine 10 Mg/2 Ml Vial) 10 mg IV NOW ONE Stop: 04/12/25 16:29 Last Admin: 04/12/25 16:38 Dose: 10 mg Documented By: BRITNI Vital Signs Vital signs: Vital Signs - 8 hr 04/12/25 16:19 04/12/25 16:21 04/12/25 16:21 Temperature Pulse Rate 67 68 Respiratory Rate Blood Pressure 142/65 H Pulse Oximetry 100 100 Oxygen Delivery Method 04/12/25 16:23 04/12/25 16:30 04/12/25 16:34 Temperature 97.5 F L Pulse Rate 66 73 78 Respiratory Rate 32 H 30 H 29 H Blood Pressure 142/65 H Pulse Oximetry 100 100 99 Oxygen Delivery Method Room Air 04/12/25 16:34 04/12/25 16:38 04/12/25 17:00 Temperature Pulse Rate 68 Respiratory Rate Blood Pressure 147/71 H 147/71 H 116/59 L Pulse Oximetry Oxygen Delivery Method 04/12/25 17:00 04/12/25 17:29 04/12/25 17:29 Temperature Pulse Rate 74 86 Respiratory Rate 20 21 Blood Pressure 118/58 L Pulse Oximetry 97 99 Oxygen Delivery Method 04/12/25 17:30 04/12/25 17:30 04/12/25 18:00 Temperature Pulse Rate 85 72 Respiratory Rate 18 16 Blood Pressure 122/63 Pulse Oximetry 100 98 Oxygen Delivery Method Room Air 04/12/25 18:00 04/12/25 20:15 04/12/25 20:23 Temperature 98.5 F Pulse Rate 77 Respiratory Rate 16 Blood Pressure 108/55 L 99/55 L 108/63 Pulse Oximetry 97 Oxygen Delivery Method Room Air MDM - Abdominal Pain Lab Data 04/12/25 16:45 04/12/25 16:45 Labs: Lab Results 04/12/25 04/12/25 Range/Units 16:45 17:30 WBC 5.8 (4.5-11.0) X10^3/uL RBC 4.33 (4.0-5.2) X10^6/uL Hgb 8.2 L (12.0-16.0) g/dL Hct 26.8 L (36-46) % MCV 61.9 L (80-100) fL MCH 19.0 L (26-34) PG MCHC 30.7 (30-36) % RDW 19.6 H (11.6-14.8) % Plt Count 90 L (150-400) X10^3/uL Neut % (Auto) 87.1 H (50-75) % Lymph % (Auto) 7.3 L (25-40) % Mckinley % (Auto) 4.3 (3-14) % Eos % (Auto) 1.0 L (2-4) % Baso % (Auto) 0.3 (0-2) % Neut # (Auto) 5100 (4526-7496) /uL Lymph # (Auto) 400 L (1317-4944) /uL Mckinley # (Auto) 300 (0-900) /uL Eos # (Auto) 100 (0-450) /uL Baso # (Auto) 0 (0-100) /uL Nucleated RBCs Cancelled Hypersegmented Neuts Cancelled Hypogranular Neuts Cancelled Reactive Lymphocytes Cancelled Smudge Cells Cancelled Other Cell Type Cancelled Toxic Granulation Cancelled Toxic Vacuolation Cancelled Dohle Bodies Cancelled Jese Rods Cancelled WBC Morphology Comment Cancelled Platelet Estimate Cancelled Clumped Platelets Cancelled Plt Morphology Comment Cancelled RBC Morphology Cancelled Dimorphic RBCs Cancelled Polychromasia Cancelled Hypochromasia Cancelled Poikilocytosis Cancelled Basophilic Stippling Cancelled Anisocytosis Cancelled Microcytosis Cancelled Macrocytosis Cancelled Spherocytes Cancelled Pappenheimer Bodies Cancelled Sickle Cells Cancelled Target Cells Cancelled Tear Drop Cells Cancelled Ovalocytes Cancelled Stomatocytes Cancelled Helmet Cells Cancelled Frank-Cowles Bodies Cancelled Hamburg Rings Cancelled Otto Cells Cancelled Acanthocytes (Spur) Cancelled Rouleaux Cancelled Schistocytes Cancelled Sodium 137 (137-145) mmol/L Potassium 3.7 (3.4-5.1) mmol/L Chloride 106 (98-107) mmol/L Carbon Dioxide 21 L (22-32) mmol/L BUN 21 H (7-17) mg/dL Creatinine 0.58 (0.52-1.04) mg/dL Estimated GFR > 60 (>60) mL/min BUN/Creatinine Ratio 36.2 H (6-22) Glucose 110 H (70-99) mg/dL Lactate 1.4 (0.7-2.1) mmol/L Calcium 8.5 (8.4-10.2) mg/dL Total Bilirubin 1.0 (0.2-1.3) mg/dL AST 38 H (14-36) IU/L ALT 19 (<35) IU/L Alkaline Phosphatase 85 (38-126) U/L Total Protein 7.7 (6.3-8.2) g/dL Albumin 4.0 (3.5-5.0) g/dL Globulin 3.7 (1.7-4.1) g/dL Albumin/Globulin Ratio 1.1 (1.0-2.8) Lipase 181 (23-300) U/L Ur Bilirubin Confirm Negative (Negative) Point of care testing: Urine Dip Bedside Urine Glucose Negative Bedside Urine Bilirubin + 1 Bedside Urine Ketone - Negative Urine Specific [place] 1.010 Bedside Urine Occult Blood - Negative Bedside Urine pH 7.0 Bedside Urine Protein +/- 15 Bedside Urine Urobilinogen - Negative Bedside Urine Nitrite - Negative Bedside Urine Leukocytes - Negative Esterase Imaging Data CT chest abdomen pelvis: Radiologist's Impression: Close Chest/Abdomen/Pelvis CT (Signed) BrianTracey - 04/12/25 [place] [address] CT Scan Report Signed Patient: Lo Aburto MR#: [id number] : 1955 Acct:[id number] Age/Sex: 69 / F Date of Service: 04/12/25 Loc: ED Accession Number: [id number] Procedure: CT chest abd pel w con Ordering Provider: Delphine Valerio D.O. PROCEDURE: CT CHEST ABD PEL W CON INDICATIONS: Static cancer severe abdominal pain TECHNIQUE: After the administration of intravenous contrast, 5 mm thick sections acquired from the lung apices to the symphysis. 5 mm coronal and sagittal reformats were performed, with additional 7 mm MIP reformats through the lungs. For radiation dose reduction, the following was used: automated exposure control, adjustment of mA and/or kV according to patient size. COMPARISON: None. FINDINGS: Image quality: Excellent. CHEST: Lower Neck: No enlarged lymph nodes. Thyroid: Heterogeneous right lower pole of the thyroid. Left lobe is normal. Axillae: No enlarged lymph nodes. Chest Wall: Unremarkable. Lungs and Pleura: Large, dependently layering right pleural effusion. No pneumothorax. Atelectatic change in the lingula. No acute ground-glass opacities or suspicious masses. Heart: Heart size is normal. No pericardial effusion. Moderate coronary artery calcification. Thoracic Vessels: The aorta and pulmonary arteries demonstrate normal size. Mediastinum and Sanaz: Mildly prominent precarinal and right hilar lymph nodes. Esophagus: No wall thickening. No hiatal hernia. ABDOMEN: Liver: Cirrhotic liver morphology. Cystic hypodensity centrally in the left hepatic lobe. Gallbladder: Distended, but without calcified stones or visible wall thickening. Biliary ducts: Mild biliary prominence. Pancreas: No ductal dilation. Spleen: Significant splenomegaly measuring 19.3 cm in length and heterogeneous parenchymal attenuation Adrenal Glands: No definite renal mass. Thickened left adrenal limbs, probably due to adjacent vascular hypertrophy. Kidneys and Ureters: Symmetric enhancement. No nephrolithiasis or hydronephrosis. No visible mass or cyst requiring follow up. No hydroureter. Stomach and Bowel: Stomach and small bowel are normal limits. No small bowel obstruction. Mildly increased quantity of solid stool throughout the colon. Diverticula throughout the sigmoid. No acute pericolonic inflammatory change. Peritoneum: There is a small amount of ascites present, particularly perihepatic and perisplenic. Small amount in the pelvis. Ventral Wall: No significant ventral hernia. Abdominal Nodes: No retroperitoneal or mesenteric adenopathy by size criteria. Vessels: The portal vein is patent. There is mixing artifact or thrombus at the lisa splenic confluence. Extensive left upper quadrant varices and pelvic varices. Abdominal aorta is normal caliber. PELVIS: Pelvic Organs: Anteverted uterus with extensive periuterine vasculature. Engorged gonadal veins. Bladder: No stones or wall thickening. Pelvic Nodes: No enlarged lymph nodes. Miscellaneous: No inguinal hernias are seen. Bones: No aggressive osseous abnormality. IMPRESSION: Significant splenomegaly, but stable compared to an ultrasound dated 12/23/24. Cirrhotic liver and other findings consistent with portal hypertension. Dependent large right pleural effusion. Sigmoid diverticulosis without acute diverticulitis. Dictated by: Tracey Torres M.D. on 04/12/2025 at 17:59 Approved by: Tracey Torres M.D. on 04/12/2025 at 18:07 ECG Data Attestation: I personally reviewed and interpreted this ECG as follows: Interpretation: Normal sinus rhythm with rate of 68, no obvious ST segment elevation or depression changes. DC 150, QRS 82, QTC 487. 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 No nausea or vomiting. Afebrile, sirs screen negative. Some decreased breath sounds on the right, no respiratory distress, no retractions, speaking in full sentences. CT chest abdomen and pelvis had been ordered after triage. GFR favorable. CT chest abdomen and pelvis, ?IMPRESSION: Significant splenomegaly, but stable compared to an ultrasound dated 12/23/24. Cirrhotic liver and other findings consistent with portal hypertension. Dependent large right pleural effusion. Sigmoid diverticulosis without acute diverticulitis. See radiology report. There does not seem to be any mention of any mediastinal shift, as she has had on review of previous chest x-rays, last therapeutic tap 03/2025. Unclear cause of epigastric area discomfort, she apparently does not have abdominal pain in association with the pleural effusions. No respiratory distress, normal oxygenation, numerous previous taps, some prior chest x-rays demonstrated mediastinal shift. She seems quite stable. She seemed somewhat surprised in fact that she had fluid on the right side again. We will schedule outpatient thoracentesis, hopefully this Saturday, if this can be scheduled from the emergency department after hours. Phone call with [facility], confirm that IR is available here Saturday. Advised PCP to place consult for Saturday outpatient IR thoracentesis. Patient informed. Regarding epigastric discomfort, no imaging accounting for this change. Splenomegaly noted, if this might be referred pain from spleen, unclear. Trial of omeprazole. Follow up with [facility] this Saturday for thoracentesis. Follow up as an outpatient with PCP as above. 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 Epigastric area abdominal discomfort of unclear cause. CT chest abdomen and pelvis imaging did not show abdominal process that is definite cause of the epigastric area discomfort. There was recurrence of your right-sided pleural effusion. You have had multiple taps of fluid from that side, last tap March 2025. You seemed somewhat surprised there was a large amount of fluid, and you did not seem to have shortness of breath, in the fluid is not pushing the lungs to the side as it has and previous imaging studies. Follow up for outpatient ambulatory thoracentesis, this can be done by [facility] Radiology as an outpatient on Fridays here. Contact your regular provider for referral to have procedure performed on Saturday here (as discussed with occupational health technician here, that was her advice for trying to make an arrangement for this Saturday with [facility] here for thoracentesis). Trial of omeprazole antacid to take for now, to see if this might help with your epigastric area discomfort. Continue your chronic morphine pain medication regimen. Recheck with your regular provider as above. Return to this/nearest emergency department for any change worsening symptoms or any concerns prior. Prescriptions: New omeprazole 20 mg capsule,delayed release(DR/EC) 20 mg PO DAILY 30 Days Qty: 30 0RF No Action prochlorperazine maleate 10 mg tablet 10 mg PO Q8H PRN (Reason: nausea and vomiting) Qty: 14 0RF prochlorperazine 25 mg suppository 25 mg DC Q12H PRN (Reason: nausea and vomiting) Qty: 12 0RF morphine [MS Contin] 15 mg tablet extended release 30 mg PO BEDTIME oxycodone 10 mg tablet 10 mg PO Q4H PRN (Reason: severe pain) nadolol 20 mg tablet 20 mg PO DAILY furosemide 40 mg tablet 40 mg PO DAILY spironolactone 100 mg tablet 100 mg PO DAILY amoxicillin-pot clavulanate 875-125 mg tablet 1 tab PO BID Qty: 14 0RF albuterol sulfate [Ventolin HFA] 90 mcg/actuation HFA aerosol inhaler 1 inh inhalation QID PRN (Reason: shortness of breath or wheezing) Qty: 6.7 0RF metoclopramide HCl 10 mg tablet 10 mg PO Q6H PRN (Reason: nausea and vomiting) Qty: 30 0RF Referrals: Miscellaneous,Doctor, MD [Primary Care Provider] - Stand Alone Forms: Patient Portal/API/Survey
== END 2025-04-12 20:40 | disposition home or self-care (01) ==
PROVIDERS: Emergency Medicine; Emergency Provider Emergency Medicine
DX: R10.13 Epigastric pain (principal); R16.1 Splenomegaly, not elsewhere classified; K74.60 Unspecified cirrhosis of liver; J90 Pleural effusion, not elsewhere classified; Z85.89 Personal history of malignant neoplasm of other organs and systems
CPT/HCPCS: 71260; 74177; 80053; 81003; 83605; 83690; 85025; 93005; 93010; 96361; 96374; 96375; 99284; J0780; J1171; Q9967